=== PATIENT | female | born 1950 | race Caucasian/White ===

== ENCOUNTER 2017-03-20 10:02 | Inpatient (IN) | payer MEDICARE, MEDICAID ==
[~2017-03-20] VITALS: Ht 157.5 cm; Wt 60.8 kg
[~2017-03-20 10:02] MED LIST: CHOL10008 PO; LIDO113G3 TP; MTH10T PO; OMEP40CA36 PO; OXYC-474 PO; SIMV20TA4 PO; TERB15CR18 TP; VENL75TA3 PO
[2017-03-20 10:10] VITALS: BP 152/100; PULSE 102; RESP 16; O2SAT 98
--- NOTE | 2017-03-20 10:38 | ED.REPORT ---
HPI-Altered Mental Status Date of Service March 20, 2017 ED Provider: Frankie Santiago MD Patient is a 66 year old female with a history of hypertension, kidney stones and GERD who presents to the ED via EMS due to bizarre behavior. Per the EMS, they received a call about the patient reportedly answering with nonsense to questions and putting her clothes outside the door of her apartment. The patient reports she has generalized myalgias, auditory and tactile hallucinations. She denies any previous psychiatric problems. Patient reports that she took 10mg of Oxycodone today and has not been taking Methadone for the past month. History and complaints are limited due to patient's mental status. Nursing Notes Stated Complaint: BIZARRE BEHAVIOR Chief Complaint: Psychiatric Complaint Nursing Notes Reviewed: Yes (Tianji, Sk[employer] not reconciled) Allergies: Coded Allergies: TAPE (Verified Allergy, Severe, ASHRAF, 03/20/17) Sulfa (Sulfonamide Antibiotics) (Verified Allergy, Intermediate, Rash, 03/20) alprazolam (Verified Allergy, Unknown, 03/20/17) bupropion HCl (Verified Allergy, Unknown, 03/20/17) varenicline tartrate (Verified Adverse Reaction, Mild, Dry throat, 03/20/17) Scheduled Cholecalciferol (Vitamin D3) (Vitamin D3) 1,000 Unit Tab.chew 1,000 UNIT PO DAILY Methadone (Methadone) 10 Mg Tab 10 MG PO Q8H Omeprazole (Omeprazole) 40 Mg Capsule.dr 40 MG PO DAILY Simvastatin (Simvastatin) 20 Mg Tablet 20 MG PO HS Terbinafine HCl (Terbinafine) 15 Gm Cream..g. 1 APPLIC TP DAILY Venlafaxine (Venlafaxine) 75 Mg Tablet 75 MG PO BIDWM Scheduled PRN Oxycodone (Roxicodone) 5 Mg Tablet 5-15 MG PO Q3H PRN PRN For Pain Miscellaneous Medications Lidocaine (Topicaine) 113 Gm Gel..gram. 113 GM TP General Time Seen by MD: 10:37 Chief Complaint Other (bizarre behavior) Hx Obtained From: Patient, EMS Arrived By: Ambulance Sudden in Onset?: Yes Onset Occurred: Just prior to arrival Symptom Duration: Since onset Associated with: Reports: Hallucinations Recent Healthcare: No recent hospitalization, Recent doctor visit Similar Sx Previous: No Past Medical History Past Medical History Notes: Medication list and anesthesia February 2017: Methadone, oxycodone Omeprazole Simvastatin Terbinafine Lidocaine topical gel's Venlafaxine Calciferol Past Medical History Hypertension History of kidney stones History of GERD Past Surgical History Tonsillectomy Cholecystectomy Appendectomy History of ovarian cyst removal\\ C-spine fusion Smoking History Current Every Day Smoker Social History Alcohol Use: Denies alcohol use Drug Use: Denies drug use Other Social History: Local resident Ambulatory Status Independent Review of Systems Review of Systems Note: complains of generalized myalgias reports auditory and tactile hallucinations Unable to Obtain ROS Mental status Physical Exam Physical Exam Notes: no visible signs of trauma no focal deficits no overt findings of withdrawl no overt toxidromes Initial Vital Signs Vital Signs (First) Date Time Temp Pulse Resp B/P Pulse Ox O2 Delivery O2 Flow Rate FiO2 03/20/17 10:10 102 16 152/100 98 Room Air 03/20/17 12:03 36.8 Initial VS: Reviewed, Vital signs abnormal (pt refused temp initially) General/Constitutional: Awake, Alert, No acute distress restless, unable to sit still pacing around room Head / Eyes: Atraumatic, Normocephalic, PERRL, EOMI Neck: Atraumatic, Supple, Full range of motion Respiratory / Chest: Atraumatic, Breath sounds NL, Breath sounds = bilat, No respiratory distress Cardiovascular: Heart rate NL, Regular rhythm, Heart sounds NL Neurologic: Speech NL, No motor deficits, No sensory deficits, Gait NL Skin: Atraumatic, Color NL, No rash, Warm, Dry PSYCHIATRIC: floridly psychotic pleasant but responds with complete nonsense to questions when asked about suicidal ideations she reports that she has many thought of self harm but than went on to talk about love suggesting she was unaware of the actual question being asked. Interpretation & Diagnostics Lab Results Interpretation Result Diagram: 03/20/17 1125 03/20/17 1125 Test 03/20/17 11:25 03/20/17 13:49 White Blood Count 11.3th/mm3 (3.8-10.1) Red Blood Count 5.26mil/mm3 (3.90-5.20) Hemoglobin 15.1g/dL (12.0-15.6) Hematocrit 44.2% (35.0-46.0) Mean Corpuscular Volume 84.0fL (81-100) Mean Corpuscular Hemoglobin 28.7pg (27.0-35.0) Mean Corpuscular Hemoglobin Concent 34.2% (32.0-37.0) Red Cell Distribution Width 14.4% (12.3-15.4) Platelet Count 321bil/L (150-400) Neutrophils (%) (Auto) 71.0% (40-74) Lymphocytes (%) (Auto) 19.8% (14-46) Monocytes (%) (Auto) 8.3% (4-12) Eosinophils (%) (Auto) 0.4% (0-5) Basophils (%) (Auto) 0.3% (0-3) Erythrocyte Sedimentation Rate 2mm/hr (0-40) Prothrombin Time 10.2sec (8.1-12.5) Prothromb Time International Ratio 0.95ratio Activated Partial Thromboplast Time 25.2sec (22.8-33.0) Sodium Level 139mEq/L (134-144) Potassium Level 4.3mEq/L (3.5-5.2) Chloride Level 99mEq/L (97-108) Carbon Dioxide Level 25mmol/L (18-29) Blood Urea Nitrogen 8mg/dL (8-27) Creatinine 0.49mg/dL (0.57-1.00) Estimat Glomerular Filtration Rate 182mL/min (>59) Glucose Level 126mg/dL (60-99) Calcium Level 9.8mg/dL (8.5-10.1) Total Bilirubin 0.4mg/dL (0.0-1.2) Aspartate Amino Transf (AST/SGOT) 28U/L (0-50) Alanine Aminotransferase (ALT/SGPT) 21U/L (0-32) Alkaline Phosphatase 116U/L (25-165) Total Protein 6.6g/dL (6.4-8.4) Albumin 4.5g/dL (3.4-5.0) Salicylates Level < 3.0ug/mL (30-250) Acetaminophen Level < 15.0ug/mL Rx (10-25) Alcohols < 10mg/dL (0-10) CSF Appearance Clear (CLEAR) CSF Color Colorless (COLORLESS) CSF WBC 0/mm3 (0-5) CSF RBC 25/mm3 CSF Mononuclear WBCs % CSF Polynuclear WBCs % CSF Other Cells CSF Glucose 85mg/dL (45-90) CSF Total Protein 36mg/dL (15-45) Lab Results Interpretation: CBC trace leukocytosis CMP normal Tylenol, alcohol, salicylates negative CSF negative, notably acidosis, normal protein, normal glucose CSF pending for PCR study, but no markers to suggest herpes encephalitis CT Head Interpretation IMPRESSION: 1. No acute intracranial findings. 2. Tortuous, ectatic hyperdense left basilar artery and hyperdense appearing left vertebral artery. These findings are similar to the study from 2013. No abnormal posey-white differentiation to suggest posterior infarct. However, if there is high clinical suspicion for acute or early subacute infarct (which will not be demonstrated on CT), MRI of the brain may be helpful. Additionally, if further characterization of the vascular anatomy is warranted, CT of the brain may be helpful. Dictated by: Ariana Summers M.D. on 03/20/2017 at 11:25 Approved by: Ariana Summers M.D. on 03/20/2017 at 11:27 Procedures Lumbar Puncture Time: 12:56 Procedure Performed by: ED physician Consent / Setup / Site Prep: Consent from patient, Hand hygiene observed, Sterile drapes applied, Patient sitting up Skin Preparation Agent: Betadine, Other Local Anesthesia: Other (Bupivacaine with epi) Inserted Needle at: L4 L5 Post-Procedure / Complications: No complications, Tolerated procedure well, Patient stable Re-Eval/Medical Decision Med Decision/Clinical Course This is a 66-year-old female brought was profoundly altered. She is upright, energetic in fact pacing slightly, but critically confused. She babbles nonsense and can give no useful history. Her speech is not slurred, she is not ataxic, there is no visible signs of trauma. An Accu-Chek is normal. She has records indicating history of methadone and oxycodone although she claims she is not on methadone-urine tox is positive only for oxycodone and she demonstrates no signs of opiate toxicity clinically. She is also not appear in withdrawal evident. She has no overt meningismus, no rashes or exanthem, no overt toxidrome is evident. However she is disoriented, and entirely inappropriate. When I ask about suicidality-the patient is suicidal all the time and asked to explain her suicidality component-she responds with information about how is "full of love, full of unicorns" and does not have any bearing to any sort of suicidal ideation -this is just an idea of how psychotic her answers are. She denies auditory or visual hallucinations. Not overtly appear to be responding to internal stimuli. He is pleasant and not combative or agitated, but occasionally tries to leave and has to be redirected. He received some lorazepam which seemed to settle her down. An extensive workup is pursued to make find no records of her previous psychiatric illness, so a search for organic pathology is was undertaken. CT imaging was negative. Blood work revealed trace leukocytosis but no clear focus of infection. LP was performed with implied consent, clear CSF and no findings of meningitis. I said the patient undergo an MRI with and without contrast with further evaluation possibility of stroke or altered pathology-patient does not have any focal neurologic findings however, and does not come across as a classic expressive aphasia, and seems to have no understanding level alone just speech difficulties-and timeline is unknown to the patient's nonicteric candidate for TPA. Is being admitted to the medicine service for additional management. Source of Hx: Old records Re-Evaluation/Progress : Time of Eval: 12:30 Re-Evaluation/Progress Note: Discussed plan for a lumbar puncture and plan for admit. The patient understands and agrees to the procedure. All questions were addressed. Consultation : Referral / Consult Name: Sergio Waters DO Consulted With: Hospitalist Mold Forms Builder: Agrees with eval, Agrees with plan, Accepts admit Counseled Regarding: Diagnosis, Lab results, Need for admission Patient Discharge & Departure Impression: Primary Impression: Acute psychosis Disposition: ADMITTED TO HOSPITAL Discharge Condition All VS Reviewed: Yes Condition: Stable Referrals: Kenisha Rubio MD (PCP) Stacey Attestation Portions of this note were transcribed by Ruma Magana. I, Dr. Santiago personally performed the history, physical exam and medical decision-making; I reviewed and confirmed the accuracy of the information in the transcribed note. Signed by: Stacey Florence, 03/20/17 and [id number] copies to: Kenisha Rubio MD, Matthew F MD March 20, 2017 10:38 Neena Magana March 20, 2017 10:55
--- NOTE | 2017-03-20 11:29 | DRSVH ---
PROCEDURE: CT BRAIN WITHOUT CONTRAST ([id number]) INDICATIONS: ALTERED MENTAL STATUS TECHNIQUE: Noncontrast 4.5 mm thick angled axial sections acquired from the foramen magnum to the vertex, with c oronal reformats. COMPARISON: [facility], CT, BRAIN W/O CONTRAST, 02/09/2013, 17:19. FINDINGS: Image quality: Excellent. CSF spaces: Basal cisterns are patent. No extra-axial fluid collections. Ventricles are normal in size and shape. Brain: No midline shift. No intracranial masses or hemorrhage. Ochoa-white matter interface is norm al. Sellar the study dated 02/09/13, the left basilar artery has an ectatic, tortuous appearance. Thi s appears hyperdense relative to the other intracranial arteries. Skull and face: Calvarium and visualized facial bones are intact, without suspicious lesions. Sinuses: Visualized sinuses and mastoids are clear. IMPRESSION: 1. No acute intracranial findings. 2. Tortuous, ectatic hyperdense left basilar artery and hyperdense appearing left vertebral artery. T hese findings are similar to the study from 2012. No abnormal ochoa-white differentiation to suggest p osterior infarct. However, if there is high clinical suspicion for acute or early subacute infarct (w hich will not be demonstrated on CT), MRI of the brain may be helpful. Additionally, if further jason cterization of the vascular anatomy is warranted, CT of the brain may be helpful. Dictated by: Ariana Summers M.D. on 03/20/2017 at 11:25 Approved by: Ariana Summers M.D. on 03/20/2017 at 11:27
[2017-03-20 11:31] LABS: BASOPHILS % (AUTO) 0.3 % (0-3); EOSINOPHILS % (AUTO) 0.4 % (0-5); MONOCYTES % (AUTO) 8.3 % (4-12); Mean Corpuscular Hemoglobin 28.7 pg (27.0-35.0); Platelet Count 321 bil/L (150-400)
[2017-03-20 11:49] LABS: INR 0.95 ratio
[2017-03-20 12:03] VITALS: BP 116/81; PULSE 80; RESP 14; O2SAT 98
[2017-03-20] MEDS ORDERED: Bupivacaine 0.5%/EPI 50 mL Inj ONE ×2 (12:26→12:28)
[2017-03-20] MEDS ORDERED: Bupivacaine-MPF 0.5% 30 mL Inj ONE (12:30)
[2017-03-20] MEDS ORDERED: Bupivacaine 0.5% 50 mL Inj INFILTRATE ONE (12:35)
[2017-03-20] MEDS ORDERED: Bupivacaine 0.5%/EPI 50 mL Inj SUBQ ONE (12:35)
[2017-03-20 14:13] LABS: APPEARANCE,CSF CLEAR (CLEAR); COLOR,CSF COLORLESS (COLORLESS); WHITE BLOOD CELL,CSF 0 /mm3 (0-5)
[2017-03-20 14:20] LABS: APPEARANCE,CSF CLEAR (CLEAR); COLOR,CSF COLORLESS (COLORLESS); WHITE BLOOD CELL,CSF 0 /mm3 (0-5)
[2017-03-20] MEDS ORDERED: Polyethylene Glycol (PEG) 17 Gm Powder PO PRN (14:50)
[2017-03-20] MEDS ORDERED: Alum-Mag Hydrox-Simeth 30 mL Suspension PO PRN (14:50)
[2017-03-20] MEDS ORDERED: Ondansetron 2 mg/mL 2 mL Inj IVPUSH PRN (14:50)
--- NOTE | 2017-03-20 15:49 | PCM.HPMED ---
Subjective Date of Service March 20, 2017 Primary Provider: Admitting Physician: Sergio Waters DO Primary Care Physician: Kenisha Rubio MD Attending Physician: Sergio Waters DO Chief Complaint: Acute alteration in mental status History of Present Illness: Pt is a 66 yo F present via EMS following call from neighbors who became concerned when patient was noted talking nonsensically and piling cloths outside of her apartment. She presented to ER still essentially pleasant but acting completely bizzar. Responses though in Moroccan made little sense and were rarely appropriate with the question asked. Pt was completely disoriented, unable to provide almost any useful history. She could provide no contacts to confirm if these changes were acute or chronic, no collateral history could be obtained. During my own examination i found much of the same. Pt was pleasant, though occasionally agitated and responded inappropriately in tangential fashion to all questions. She did endorse hip pain which is chronic, but followed this by saying if " I was home it would be gone because she could pull the shade and watch TV". All of her attempted history proceeded in this direction. When asked of medical history she responded "lots, for my whole life , but i can't give you my life story for now. For breakfast i had a banana, that is all i have eaten for the past 4 days. " All attempts at obtaining history yeilded little information, but she at least repeatedly denies any pains or distress. Review of Systems: A 10 point review of systems was conducted and entirely negative excepting pertinent positives and negatives included above history of present illness, though oddity of responses put accuracy in question. Allergies Coded Allergies: TAPE (Verified Allergy, Severe, ASHRAF, 03/20/17) Sulfa (Sulfonamide Antibiotics) (Verified Allergy, Intermediate, Rash, 03/20) alprazolam (Verified Allergy, Unknown, 03/20/17) bupropion HCl (Verified Allergy, Unknown, 03/20/17) varenicline tartrate (Verified Adverse Reaction, Mild, Dry throat, 03/20/17) Home Medications Cholecalciferol (Vitamin D3) (Vitamin D3) 1,000 Unit Tab.chew 1,000 UNIT PO DAILY Methadone (Methadone) 10 Mg Tab 10 MG PO Q8H Omeprazole (Omeprazole) 40 Mg Capsule.dr 40 MG PO DAILY Simvastatin (Simvastatin) 20 Mg Tablet 20 MG PO HS Terbinafine HCl (Terbinafine) 15 Gm Cream..g. 1 APPLIC TP DAILY Venlafaxine (Venlafaxine) 75 Mg Tablet 75 MG PO BIDWM Scheduled PRN Oxycodone (Roxicodone) 5 Mg Tablet 5-15 MG PO Q3H PRN PRN For Pain Miscellaneous Medications Lidocaine (Topicaine) 113 Gm Gel..gram. 113 GM TP PMH Hypertension History of kidney stones History of GERD Surgical History Tonsillectomy Cholecystectomy Appendectomy History of ovarian cyst removal\\ C-spine fusion Family History unable to obtain, none reported. Social History Hx Alcohol Use: No Hx Substance Use: No Hx Tobacco Use: No Smoking Status: Current Every Day Smoker Exam Vital Signs Vital Sign - Last Date Time Temp Pulse Resp B/P Pulse Ox O2 Delivery O2 Flow Rate FiO2 03/20/17 12:03 36.8 80 14 116/81 98 Room Air Exam Complete physical could not be conducted due to patient refusal. She did not allow for physical contact/touch during examination. General: Alert, Other (Pt appeared intermittently anxious, but generally comfortable. IN no acute distress. Pt maintained good eye contact, speech pressured, flight of ideas observed, with tengential though process. Denies any thoughts of self harm, or harm to others. ) Lab and Diagnostics Result Diagram: 03/20/17 1125 03/20/17 1125 Assessment & Plan Patient is a 66-year-old female with a very peculiar presentation of an acute alteration in mental status and apparent new onset psychosis admitted for further evaluation with etiology of mental status change as of yet unclear 1. Acute psychosis - Evaluation thus far has not yielded diagnosis or suggested possible cause of his condition - Chronicity of condition as well remains in question however patient was seen in 2012 with a cholecystitis and at that time now is on is a behavior abnormal mentation was noted and it is assumed that this is of a more acute onset - Emergency room evaluation including cerebral spinal fluid did not demonstrate any evidence of infection or other possible abnormalities which could explain patient's current condition - Patient is on chronic narcotic therapy, and now she does confirm taking oxycodone she denies currently being on methadone which he has also been prescribed near past. - Plan for continued close observation of patient, MRI brain with and without contrast is pending for further evaluation of possible central process which appears most likely to account for patient's acute mentation changes. - May consider neurologic consult should patient remain altered without any other identifiable cause. - We will hold patient's psychiatric medications at this time including venlafaxine at this time. 2. Hypertension - Initially elevated on presentation to emergency room her blood pressure has since normalized - We will consider no acute interventions at this time, but may reconsider based on blood pressure trends during inpatient stay. 3. Chronic pain: - Though i am reluctant to provide any medications which may alter patient, she began complaining of chronic pain soon after my admission, and her taking of Oxycodone 10mg QID was confirmed. - I elected to start with lower dose, 5/325, which may be increased if not effective. - Holding methadone at this time. Pain Evaluation: Adequate Pain Control GI Prophylaxis: Not indicated VTE Mechanical Devices: Intermittant Pneumatic CD Resuscitation Status: CPR: Attempt Resuscitation Sergio Waters DO March 20, 2017 15:49
[2017-03-20 16:03] VITALS: BP 114/80; PULSE 84; RESP 20; O2SAT 97
--- NOTE | 2017-03-20 16:10 | NUR ---
Admission Patient arrived on unit via gurney from [facility] ER. Patient reported she was her because of "a family feud that has been going on since she was born". Patient reporting "all the people are being cremated-only the bad people". "My brother is a pedophile and should be in skilled nursing". "Some one is coming to bring me stuff". "I can walk there-you know how you need to urinate then you can't". Sentence are run on and the over all content can be garbled. Patient has a difficulty tracking/completing thoughts. Unable to figure out how to use her phone to call her brother, but did call 911.
[2017-03-20 16:12] LABS: APPEARANCE,URINE CLEAR (CLEAR,HAZY); COLOR,URINE STRAW (YELLOW); OCCULT BLOOD,URINE TRACE (NEGATIVE); PH,URINE 5.5 (5.0-8.0); UROBILINOGEN,URINE NORMAL (NORMAL)
--- NOTE | 2017-03-20 16:14 | DRSVH ---
PROCEDURE: MRI BRAIN WITH AND WITHOUT CONTRAST ([id number]) INDICATIONS: New onset psychosis TECHNIQUE: Noncontrast axial T1 spin echo, axial T2 fast spin echo, sagittal and axial FLAIR, coronal T2 fast sp in echo, axial gradient echo, axial diffusion and ADC through the brain. After the administration of contrast, axial and coronal 3D VIBE or T1 spin echo with fat saturation through the brain. COMPARISON: [facility], CT, BRAIN W/O CONTRAST, 02/09/2013, 17:19. [facility], CT, CT BRAIN WO CON, 03/20/2017, 11:12. FINDINGS: Image quality: Diagnostic. Moderate motion artifact is present on several imaging sequences. The Brain: There is no acute intra-axial or extra-axial hemorrhage. No extra-axial fluid collection is i dentified. There is no midline shift or mass effect. Scattered foci of increased flair signal are noted within the deep white matter of the supratentorial brain. No parenchymal masses or abnormal enhancement is appreciated. There is no parenchymal edema . No restricted diffusion is present. The midline intracranial structures are within normal limits. The major expected intracranial flow voids are visualized. The left vertebral artery is prominent in size then noted to be tortuous, terminating as the basilar artery with mild mass effect on the lef t aspect of the brainstem, which partially extends towards the region of the cerebellum. This is unc hanged since 2012 and of doubtful significance. No abnormal enhancement is present on the postcontras t images. No enhancing lesions are identified. The ventricles and cortical sulci are mildly prominent. Bones: The imaged osseous structures are grossly intact. No suspicious osseous lesions are identifie d. The included paranasal sinuses and mastoid air cells are clear. Extracranial soft tissues: The imaged overlying soft tissues of the face and head are grossly unremar kable. IMPRESSION: 1. Excessive motion artifact on this examination limits evaluation for subtle brain lesions. 2. No acute intracranial hemorrhage or ischemia. 3. Chronic small vessel ischemic changes and mild parenchymal volume loss. 4. Dolichoectasia of the basilar artery. Dictated by: Jordan Archer M.D. on 03/20/2017 at 15:09 Approved by: Jordan Archer M.D. on 03/20/2017 at 15:13
[2017-03-20 16:18] VITALS: PULSE 83
[2017-03-20] MEDS ORDERED: OMEP20CA11 PO (16:37)
[2017-03-20] MEDS ORDERED: VENL-57 PO (16:37)
[2017-03-20] MEDS ORDERED: OXYC10TA8 PO (16:37)
[2017-03-20] MEDS ORDERED: PREG50CA PO (16:37)
[2017-03-20] MEDS ORDERED: ROB500 PO (16:37)
[2017-03-20] MEDS ORDERED: SIMV40TA5 PO (16:37)
[2017-03-20] MEDS ORDERED: METH5TAB3 PO (16:37)
[2017-03-20] MEDS: oxyCODONE-Acetamin 5-325 mg Tablet PO PRN (18:57)
[2017-03-20] MEDS: LORazepam 1 mg Tablet PO PRN (18:58)
--- NOTE | 2017-03-21 05:06 | NUR ---
Activity Pt was quite active at beginning of shift. First 3 hours Pt ambulated in and out of room, up and down halls. Pt even set off her [employer] tag monitor alarm [id number] to leave. Pt easily returned to room. Nothing Pt says is relevant to current surroundings and situation. Pt eventually went to sleep and has been asleep ever since.
[2017-03-21] MEDS: oxyCODONE-Acetamin 5-325 mg Tablet PO PRN ×4 (05:59→20:00)
[2017-03-21 06:04] VITALS: BP 127/89; PULSE 77; RESP 20; O2SAT 96
[2017-03-21] MEDS: Pantoprazole 40 mg ER24 Tablet PO SCH (09:21)
--- NOTE | 2017-03-21 13:52 | NUR ---
CHIP - Attempted Initial Assessment Pt is a 66 y/o female admitted 03/20/17 for altered mental status per H&P. per interdisciplinary rounds neurology consult has been ordered. CHIP met with pt in attempt to complete initial assessment. Pt presented as pleasant and confused, stated she "hurt all over" but could not remember for how long. Asked if she is going to in the hospital today. Pt did know she was at [facility] and was brought here by EMS, and stated she lives alone. Pt confirmed that brother Geovani Bradley is a good person to contact. SW called brother at [phone] and left message requesting return call. SW will continue to follow for full assessment and needs. DAVID Ladd
--- NOTE | 2017-03-21 14:11 | NUR ---
Mentation Patient restless, in and out of room and pacing fam. Attempted to pull off [employer] monitor. Speech is erratic and nonsensical. Alert to self and date but not to place/situation. Confused and not able to orient her to situation. Patient reoriented frequently for safety.
--- NOTE | 2017-03-21 15:22 | PCM.PNMED ---
Subjective Date of Service March 21, 2017 Subjective Patient remains pleasant, but profoundly altered and those are. Walks around unit frequently disoriented, making statements which appear to have little relevance to the previous conversation or related to question she has been asked. She does not appear to any physical pain however she notes it does bother her but says pain medication has been dressing it well. No other acute complaints at this time patient in fact appears relatively content in spite of the fact that she is so profoundly out of touch with reality. Exam Vital Signs Vital Sign - Last Date Time Temp Pulse Resp B/P Pulse Ox O2 Delivery O2 Flow Rate FiO2 03/21/17 06:04 36.6 77 20 127/89 96 Room Air Intake and Output 03/20/17 03/20/17 03/21/17 Cumulative From/Thru 15:00 23:00 07:00 03/20/17 10:10 - 03/21/17 06:46 Intake Total 236 ml 400 ml 636 ml Output Total 150 ml 150 ml Balance 86 ml 400 ml 486 ml Intake Oral 236 ml 400 ml 636 ml Output Urine Total 150 ml 150 ml # Voids 3 3 General: Alert, Cooperative, No Acute Distress, Other (she is pleasant but continues to make bizarre statements, is not answer questions directly, has seemingly no insight into her condition. Difficult to assess but does not appear she is aware she is even in the hospital, or factors related to her admission, but nonetheless she is easily redirectable and nightly not combative with staff. ) Eyes: PERRLA, EOMI Chest & Lungs: Chest Wall Normal Cardiovascular: Exam Unremarkable Extremities: No cyanosis/clubbing/edma bilat Neurological: Grossly Neurologically Intact, Cranial Nerves 2-12 Intact, Normal Speech, Normal Gait IVs and Medications Medications Reviewed: Medications were reviewed in detail Lab and Diagnostics Result Diagram: 03/20/17 1125 03/20/17 1125 Assessment & Plan Patient is a 66-year-old female with a very peculiar presentation of an acute alteration in mental status and apparent new onset psychosis admitted for further evaluation with etiology of mental status change as of yet unclear 1. Acute psychosis - Evaluation thus far has not yielded diagnosis or suggested possible cause of his condition - Chronicity of condition as well remains in question however patient was seen in 2012 with a cholecystitis and at that time now is on is a behavior abnormal mentation was noted and it is assumed that this is of a more acute onset - Emergency room evaluation including cerebral spinal fluid did not demonstrate any evidence of infection or other possible abnormalities which could explain patient's current condition - Patient is on chronic narcotic therapy, and now she does confirm taking oxycodone she denies currently being on methadone which he has also been prescribed near past. - Plan for continued close observation of patient, MRI brain with and without contrast did not seem to demonstrate any changes consistent with patient's drastic behavioral disturbance. - We will hold patient's psychiatric medications at this time including venlafaxine at this time. - We have no neurology available to us at this time for consultation, however will try to reach neurology in the morning for further evaluation of possible underlying medical condition which can explain patient's profound alteration which appears to have happened in the last couple of weeks throughout most months. - - Psychiatry has been consulted for further consideration of her apparent psychotic disorder and optimal management. In addition should no medical/biological cause can be found to explain patient's condition there may be an indication for transfer to inpatient psychiatric unit as the most appropriate disposition. 2. Hypertension - Initially elevated on presentation to emergency room her blood pressure has since normalized - We will consider no acute interventions at this time, but may reconsider based on blood pressure trends during inpatient stay. 3. Chronic pain: - Though i am reluctant to provide any medications which may alter patient, she began complaining of chronic pain soon after my admission, and her taking of Oxycodone 10mg QID was confirmed. - I elected to start with lower dose, 5/325, which has been effective thus far. - Holding methadone at this time. Pain Evaluation: Adequate Pain Control GI Prophylaxis: Not indicated VTE Mechanical Devices: Intermittant Pneumatic CD Resuscitation Status: CPR: Attempt Resuscitation Time spent 25 minutes Sergio Waters DO March 21, 2017 15:22
[2017-03-21] MEDS: LORazepam 1 mg Tablet PO PRN (16:01)
[2017-03-21 16:21] VITALS: BP 132/89; PULSE 95; RESP 22; O2SAT 92
[2017-03-21 21:07] VITALS: BP 132/88; PULSE 87; RESP 18; O2SAT 98
[2017-03-22] MEDS: oxyCODONE-Acetamin 5-325 mg Tablet PO PRN ×6 (00:03→22:09)
[2017-03-22] MEDS: LORazepam 1 mg Tablet PO PRN ×4 (00:03→23:56)
[2017-03-22 04:10] VITALS: BP 127/88; PULSE 80; RESP 18; O2SAT 97
[2017-03-22] MEDS: Pantoprazole 40 mg ER24 Tablet PO SCH (06:34)
--- NOTE | 2017-03-22 06:44 | NUR ---
Odd Behavior Pt has been compliant and friendly with staff all night. Pt continues to make out of pace statements at times, and is also placing things in odd places. Pts trinidad aubrie was found hanging over sink, has been writing on wipe off board, and placed the trash can up on the window.
--- NOTE | 2017-03-22 11:04 | NUR ---
Social Work-initial assessment: Data:See initial assessment. Pt is a 66 y/o female who was admitted on 03/20/17 for altered mental status per H&P. Pt's insurance is [facility] and [facility] Suppl and PCP is Kenisha Rubio MD. EMR Reviewed. Pt's readmission score is 3-high risk. Pt is currently presenting with acute psychosis. SW spoke to pt's NOK brother Geovani Bradley [phone] to discuss discharge planning, SW role explained. Brother states pt resides at home alone in a single level home where pt remains independent with basic ADLs. Pt uses no DME and drives POV. Pt has no HH or SNF history. To his knowledge the pt has not completed DPOA/ advanced directive and pt is not appropriate to do so at this time. Pt has no intermediate designer care or VA benefits. UR Nurse to request psych evaluation with possible transfer to inpatient psych. Neurology is following. Pt's mode of transport at discharge is stil TBD. Plan evolving. SW provided phone number and plan on white board in room. SW will continue to follow. Assessment:Pt who resides at home alone and is independent at baseline. Plan: Psych evaluation has been requested with possible transfer to inpatient psych. Discharge plan is evolving. SW will continue to follow. DAVID Ladd
--- NOTE | 2017-03-22 12:02 | PCM.PNMED ---
Subjective Date of Service March 22, 2017 Subjective Patient was seen and examined at bedside today. Patient still has altered mental status and is able to answer some questions pertaining to her however some of her answers seem to be off topic however she is able to be redirected. Patient complains of generalized pain as well as pain. Overnight events: None Exam Vital Signs Vital Sign - Last Date Time Temp Pulse Resp B/P Pulse Ox O2 Delivery O2 Flow Rate FiO2 03/22/17 04:10 36.9 80 18 127/88 97 Room Air Intake and Output 03/21/17 03/21/17 03/22/17 Cumulative From/Thru 15:00 23:00 07:00 03/20/17 10:10 - 03/22/17 05:24 Intake Total 876 ml 300 ml 1812 ml Output Total 150 ml Balance 876 ml 300 ml 1662 ml Intake Oral 876 ml 300 ml 1812 ml Output Urine Total 150 ml # Voids 3 2 8 # Bowel Movements 0 0 Exam Physical Exam: GEN: Patient was awake, alert, responding to questions however some of her thoughts are tangential HEENT: Pupils equal round and reactive to light, extraocular eye muscles intact , Neck soft supple, trachea midline, nomocephalic/atraumatic CV: +S1/S2, regular rate and rhythm, no murmurs auscultated Respiratory: CTAB, no wheezes, rales, rhonchi GI: +bowel sounds x4, soft, compressible, nontender to palpation EXT: no clubbing, cyanosis, edema Neuro: Cranial nerves II-XII grossly intact Psych: Patient's thoughts were tangential, she had some pressured speech, patient seemed restless IVs and Medications Medications Reviewed: Medications were reviewed in detail Lab and Diagnostics Result Diagram: 03/20/17 1125 03/20/17 1125 Assessment & Plan Patient is a 66-year-old female with a very peculiar presentation of an acute alteration in mental status and apparent new onset psychosis admitted for further evaluation with etiology of mental status change as of yet unclear Acute psychosis - Evaluation thus far has not yielded diagnosis or suggested possible cause of his condition - Chronicity of condition as well remains in question however patient was seen in 2012 with a cholecystitis and at that time now is on is a behavior abnormal mentation was noted and it is assumed that this is of a more acute onset - Emergency room evaluation including cerebral spinal fluid did not demonstrate any evidence of infection or other possible abnormalities which could explain patient's current condition - Patient is on chronic narcotic therapy, and now she does confirm taking oxycodone she denies currently being on methadone which he has also been prescribed near past. - Plan for continued close observation of patient, MRI brain with and without contrast did not seem to demonstrate any changes consistent with patient's drastic behavioral disturbance. - We will hold patient's psychiatric medications at this time including venlafaxine at this time. - We have no neurology available to us at this time for consultation, however will try to reach neurology in the morning for further evaluation of possible underlying medical condition which can explain patient's profound alteration which appears to have happened in the last couple of weeks throughout most months. - - Psychiatry has been consulted for further consideration of her apparent psychotic disorder and optimal management. In addition should no medical/biological cause can be found to explain patient's condition there may be an indication for transfer to inpatient psychiatric unit as the most appropriate disposition. - EEG pending -Follow-up psychiatry consult Urethritis possibly secondary to yeast infection -Diflucan one-time dose -Follow up with patient the morning Hypertension - Currently stable has returned to baseline without any medical intervention -We will continue to monitor Chronic pain: - It was confirmed that the patient is taking oxycodone 10 mg 4 times a day -Patient was started on Percocet 5/325mg and is currently effective - continue to hold methadone at this time - we will continue to monitor Disposition: The patient currently still has acute psychosis. At this time the workup has been negative for any infectious causes. Patient does complain of urethritis and will treat the patient with a one-time dose of Diflucan UA was negative for any type of UTI. Neurology (Dr. perry) was consulted in the case was discussed with him and he recommends getting an EEG for complete workup. If this comes back negative the patient will need to be transferred to the psych unit for further management of her psychosis. GI Prophylaxis: Not indicated VTE Mechanical Devices: Intermittant Pneumatic CD Resuscitation Status: CPR: Attempt Resuscitation BillingsleyGissel Mera DO March 22, 2017 12:02
[2017-03-22 12:25] VITALS: BP 107/74; PULSE 83; RESP 20; O2SAT 97
--- NOTE | 2017-03-22 15:33 | NUR ---
Pt not appropriate to sign ULISES. SW contacted pt's LANI Olivo via phone (he resides [place] of [place]) and he verbally signed. DAVID Ladd
--- NOTE | 2017-03-22 19:20 | CONS ---
[address] [address] CONSULTATION REPORT PATIENT: ERIKA PONCE : 1950 MR#: [id number] ADMIT: 03/20/2017 JOB ID: [id number] DATE OF ADMISSION: 03/20/2017 DATE OF SERVICE: 03/22/2017 IDENTIFICATION: The patient is a 66-year-old, single, white female, currently living independently. Her brother, Geovani Bradley, lives out of town but has been a good source of information [phone]. REASON FOR ADMISSION: Client to the emergency department via emergency medical service due to acting bizarre, talking nonsensically and appearing highly disoriented. HISTORY OF PRESENT ILLNESS: I was asked to consult on this patient for mental evaluation and treatment of mental status changes. I met with her for a 60-minute evaluation and reviewed course and records kept by [facility]. I also spoke to Geovani Bradley for approximately 20 minutes getting past history. Client's main issue is altered mental status. Co- occurring issues are chronic pain with use of methadone and oxycodone. The condition is acute and has been developing over the past five months. Her brother noted a progressive decrease in memory and disinhibition in her behavior since Gilberto. She has become increasingly irritable and is easily confused. Over the past six months, she has had inappropriate responses to relatively normal social interactions. At the time of admission, she was severely disorganized, agitated, tangential and talking nonsensically. Today during my session, her thought process had apparently reconstituted and she was able to speak in a genuinely clear and normal manner. She consistently denied symptoms of depression, monique or psychosis. She denied difficulty with constitution, other than complaining of back pain and hip pain. Currently, at the time of my evaluation, she was showing no signs of emotional liability or difficulty with impulse control. Her reality testing was intact and she was alert and oriented to person, place, and date. However, she showed impairment in cognition, judgment and insight. MEDICATIONS: 1. Venlafaxine reportedly 37.5 mg per day. 2. Oxycodone for pain. 3. Methadone up to 40 mg per day for pain. ALLERGIES: CHANTIX. PAST MEDICAL ILLNESSES: Hypertension, history of kidney stones, history of gastroesophageal reflux disease. FAMILY MEDICAL HISTORY: Noncontributory. PAST PSYCHIATRIC HISTORY: Client denies. PSYCHOSOCIAL HISTORY: Client reports being born and raised in the [facility]. She attended [employer]. 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 DRUG AND ALCOHOL: Client denied. States she smokes half a pack per day. SUICIDAL IDEATION/ATTEMPTS: None. RELATIONSHIP HISTORY: for two years at 33. No children. ROMAN CATHOLIC: None. LEGAL HISTORY: Client denies. PHYSICAL EXAMINATION: Physical exam and vital signs reviewed and essentially normal. LABORATORY AND IMAGING: CT, MRI, CBC, ESR, UDS and UA also all relatively normal. The only abnormality was a WBC of 11. MENTAL STATUS EXAMINATION: Client neatly and stylishly dressed. Good eye contact. Her behavior was somewhat withdrawn and lethargic. Attitude was aloof and detached. Speech tended to be monotone, but she was speaking in full comprehensible sentences. Mood was sad. Affect congruent. Normal intensity, full range. Thought process: Client had a difficult time relating a coherent history. She appeared to be rationalizing to normalize recent bizarre behavior. Her thought process was somewhat concrete, but was otherwise logical. She did not appear to be responding to internal stimuli. No neurovegetative signs of depression. No signs of psychosis. Thought content: Client talked about her love of animals and how she has been angry lately about the different abuses that are happening to animals that she is aware of in events. She denied suicidal ideation or auditory hallucinations. She is alert and oriented to person, place, and date. Immediate, short, and long-term memory were impaired. Concentration and attention were impaired. Client had approximately 20/30 on a mini-mental status exam, 24 being the bottom line of normal. Insight and judgment impaired. Impulse control highly contained, but per history has a difficult time handling impulses of frustration and anger. Reality testing was intact. Competence to handle current stressors is currently overwhelmed. IMPRESSION: The patient is a 66-year-old, white female, currently living independently. She was brought to the emergency department after being found talking nonsensically, disoriented and agitated. She does take both methadone and oxycodone and reported increasing doses of methadone over the past several months. It is most likely that the recent confusion and behavior changes are likely due to the combination of being overmedicated with the combination of methadone and Percocet. Here in the hospital, she also already has shown approximately 60% improvement since being admitted approximately 48 hours ago. She remains quite impaired. She is disoriented in her thought, not necessarily disorganized. Schizophrenia would be a presentation for more thought disorganization. Her disorientation tends to lead me to believe she is in a delirium or early stages of a neurocognitive disorder. DIAGNOSIS: [place] I1. Preliminary substance-induced thought disorder, methadone and Percocet. Rule out major depressive disorder. 2. Rule out neurocognitive disorder, unspecified. [place] IIDeferred. [place] IIINone. [place] IVUnknown. [place] VCurrent GAF equal to 35. RECOMMENDATIONS: Recommend client be given regularly scheduled narcotics rather than p.r.n. Would recommend contacting her [facility] to get an idea of the quantities of medications that she has had. Would recommend refraining from starting psychiatric medications at this time and give the client several days to clear to see what we are dealing with. In the meantime, would orient client frequently to year and date. Client would benefit from reading a newspaper regularly. Would recommend occupational therapy evaluation to see if client is truly going to be able to do independent living after she clears. Thank you for an interesting consultation. I will follow along with you.
--- NOTE | 2017-03-22 19:53 | NUR ---
Mentation Patient alert to self and place, and speaks in complete sentences. But when sentences are put together, they do not make sense. "I think the arm band is on my ankle (hugs tag). It is dribbling down my leg". Addendum: 03/22/17 at 2001 by TYLOR GARCIA RN To be noted: patient placed her gargage can in her window. Removed the nicotine patch packaging and medication packaging from the garbage and placed them on a paper plate on the counter. She instructed the nurse "not to throw them away, they were for a "special purpose". but was unable to say what the purpose was.
[2017-03-22 21:55] VITALS: BP 121/81; PULSE 80; RESP 18; O2SAT 95
--- NOTE | 2017-03-22 23:42 | PROCED ---
[address] [address] EEG PATIENT: ERIKA PONCE : 1950 MR#: [id number] ADMIT: 03/20/2017 JOB ID: [id number] DATE OF SERVICE: 03/22/2017 REQUESTING PHYSICIAN: HISTORY: The patient is a 66-year-old woman with altered mental status. TECHNICAL DESCRIPTION: This digital EEG was recorded using 25 scalp and ear, and 2 EKG electrodes. It was reviewed in bipolar and referential montages following reformatting of the 10-20 International Electrode Placement System. During the recording, the patient was noted to be awake, drowsy, and asleep. The background was composed of an 8.5 hertz, 20-50 microvolt, symmetrical and reactive posterior dominant rhythm that attenuated with eye opening. The rest of the background was composed of low voltage faster frequencies. There were no focal, lateralized, or epileptiform discharges noted. There were no seizures seen. Sleep was characterized by the attenuation of the alpha rhythm, the appearance of symmetrical vertex waves, heralding stage 1 of sleep. This was followed by the development of symmetrical sleep spindles and K complexes, heralding stage 2 of sleep. Hyperventilation was not performed as the patient was uncooperative with this test. Photic stimulation from 1-30 hertz did not elicit any photic driving response. The EKG rhythm strip revealed a heart rate of 60 to 80 beats per minute with no apparent arrhythmias. IMPRESSION: This electroencephalogram performed in the awake, drowsy, and asleep states is within normal limits. Clinical correlation is advised.
[2017-03-22 23:53] VITALS: BP 124/76; PULSE 76; RESP 16; O2SAT 95
[2017-03-23 04:53] VITALS: BP 120/79; PULSE 82; RESP 16; O2SAT 97
--- NOTE | 2017-03-23 05:07 | NUR ---
Mentation Improving Pt appears mentally more clear, alert and oriented to place,[place] President and year, month,able to rate pain level, ask or answer questions properly, she requested nicotine vapor, asked where RN came from and and able to give a rational guess. Pt remains calm most of times, pleasant and cooperative. Sleeping comfortably after Lorazepam given at night.
[2017-03-23] MEDS: Pantoprazole 40 mg ER24 Tablet PO SCH (06:06)
[2017-03-23] MEDS: oxyCODONE-Acetamin 5-325 mg Tablet PO PRN ×4 (06:06→21:28)
[2017-03-23 06:27] LABS: Mean Corpuscular Hemoglobin 28.4 pg (27.0-35.0); Mean Corpuscular Volume 85.3 fL (81-100)
[2017-03-23] MEDS: LORazepam 1 mg Tablet PO PRN (09:57)
[2017-03-23 12:12] VITALS: BP 133/74; PULSE 74; RESP 19; O2SAT 95
--- NOTE | 2017-03-23 18:30 | NUR ---
Mentation/pain Patient mentation appeared appropriate this afternoon, statements reality based and make sense. Patient back pain appears more tolerable with medication this shift. Patient reporting sonia pain "worse than my back pain". Calmoseptine given.
--- NOTE | 2017-03-23 19:45 | CONS ---
[address] [address] CONSULTATION REPORT PATIENT: ERIKA PONCE : 1950 MR#: [id number] ADMIT: 03/20/2017 JOB ID: [id number] DATE OF SERVICE: 03/23/2017 REQUESTING PROVIDER: Gissel Billingsley MD CHIEF COMPLAINT: Altered mental status. HISTORY OF PRESENTING ILLNESS: The patient is a pleasant, 66-year-old woman who presented with a change in mental status to the emergency department. She was noted to be talking nonsensically and piling close outside of her apartment. She reports no history of any psychiatric disorders in the past. She denied any new neurologic symptoms. She does report a history of chronic lower back pain. She attributes this to an initial injury where she injured her tailbone followed by the development of chronic lower back pain. For this, she reports that she takes oxycodone and methadone. She reports that the doses of these medications have not changed. Sensation is remarkable for paranoid thoughts. An extensive evaluation has been performed so far including a lumbar puncture which was unremarkable, a magnetic resonance imaging study of her brain which was not remarkable for any acute abnormalities. There was excessive motion artifact, no acute intracranial hemorrhage or ischemia, chronic small vessel ischemic changes and mild parenchymal volume loss, dolichoectasia of the basilar artery. FAMILY HISTORY: She does have a family history of Alzheimer dementia in her mother. She is concerned about this to a certain extent. She also underwent an electroencephalogram which was unremarkable. PHYSICAL EXAMINATION: Temperature 36.6, pulse of 74, respiratory rate of 19, blood pressure 133/74, pulse oximetry 95% on room air General: She is a well-developed, well-nourished woman, in no acute distress. Head: Normocephalic, atraumatic. Neck is supple. No carotid bruits were auscultated. Chest: Clear to auscultation. Heart: Regular rate and rhythm. Abdomen: Soft, nondistended, nontender. Extremities: No cyanosis, clubbing, or edema. NEUROLOGIC EXAMINATION: She is awake, alert, oriented x3. Speech is clear and fluent with no aphasia. She did appear mildly paranoid. When I came into the room and introduced myself, she asked me to provide identification, so I have provided her with a copy of my medical license. Cranial nerves: Pupils equal, round, reactive to light. Extraocular movements were smooth and conjugate with no evidence of nystagmus. Face appeared symmetrical. Facial sensation was intact to light touch and temperature. Auditory sensation was intact to finger rub. Palatal elevation was symmetrical. Tongue was midline. Sternocleidomastoid and trapezii are 5/5 bilaterally. Motor normal tone and bulk. Muscle strength 5/5 bilaterally. Sensation intact to light touch and temperature throughout. Deep tendon reflexes 2+ and symmetrical. Plantars were flexor bilaterally. Coordination: Isnioe-ay-sfwe was intact without evidence of dysmetria. Gait was normal, narrow-based. IMPRESSION: Based on her clinical history, my suspicion is that this is secondary to a psychiatric etiology. In this case, I do suspect an acute stress response or new onset of a mood disorder with possible schizotypal features. REVIEW OF SYSTEMS: A complete review of systems was performed and was remarkable for above-noted. ALLERGIES: 1. TAPE. 2. SULFA. 3. ALPRAZOLAM. 4. BUPROPION. 5. VARENICLINE TARTRATE. HOME MEDICATIONS: 1. Vitamin D. 2. Methadone. 3. Omeprazole 4. Simvastatin. 5. Terbinafine 6. Venlafaxine. 7. P.r.n. oxycodone and lidocaine. PAST MEDICAL HISTORY: Hypertension, kidney stones, gastroesophageal reflux disease. PAST SURGICAL HISTORY: Status post tonsillectomy, status post cholecystectomy, status post appendectomy, status post a history of an ovarian cyst removal, status post cervical spinal fusion. SOCIAL HISTORY: No tobacco, alcohol, or drugs. She reports that she lives alone, however, does report that she has a strong social network. IMPRESSION: Although certainly Alzheimer's dementia does remain in the differential, in my opinion her symptoms are more suggestive of a psychiatric illness rather than a neurologic disorder. I would recommend that she obtain neuropsychological testing as an outpatient at some point. Thank you, again, Dr. Billingsley, for allowing me to participate in the care of your patient. Please feel free to contact me with any questions or concerns. BREANA
--- NOTE | 2017-03-23 20:20 | PCM.PNMED ---
Subjective Date of Service March 23, 2017 Subjective Patient was seen and examined at bedside today. Patient denies any chest pain, shortness of breath, nausea, vomiting, diarrhea. Patient still complains of a vague vaginal burning that has been present for the last 3 years. Patient does seem to be a little more paranoid and she has accused her nurse of trying to "kill her" by giving her glass to take instead of her medications and also accusing the nurse of being the ring leader of the drug operation locally. Overnight events: None the patient remains altered in mental status Exam Vital Signs Vital Sign - Last Date Time Temp Pulse Resp B/P Pulse Ox O2 Delivery O2 Flow Rate FiO2 03/23/17 12:12 36.6 74 19 133/74 95 Room Air Intake and Output 03/22/17 03/22/17 03/23/17 Cumulative From/Thru 15:00 23:00 07:00 03/20/17 10:10 - 03/23/17 06:03 Intake Total 1475 ml 200 ml 3487 ml Output Total 1325 ml 1475 ml Balance 150 ml 200 ml 2012 ml Intake Oral 1475 ml 200 ml 3487 ml Output Urine Total 1325 ml 1475 ml # Voids 3 11 # Bowel Movements 3 0 3 Exam Physical Exam: GEN: Patient was awake, alert, responding appropriately to questions HEENT: Pupils equal round and reactive to light, extraocular eye muscles intact , Neck soft supple, trachea midline, nomocephalic/atraumatic CV: +S1/S2, regular rate and rhythm, no murmurs auscultated Respiratory: CTAB, no wheezes, rales, rhonchi GI: +bowel sounds x4, soft, compressible, nontender to palpation EXT: no clubbing, cyanosis, edema Neuro: Cranial nerves II-XII grossly intact Psych: mood and affect were appropriate IVs and Medications Medications Reviewed: Medications were reviewed in detail Lab and Diagnostics Result Diagram: 03/23/1750 03/23/1750 Assessment & Plan Patient is a 66-year-old female with a very peculiar presentation of an acute alteration in mental status and apparent new onset psychosis admitted for further evaluation with etiology of mental status change as of yet unclear Acute psychosis most likely secondary to excessive usage of opioids - Evaluation thus far has not yielded diagnosis or suggested possible cause of his condition - Chronicity of condition as well remains in question however patient was seen in 2012 with a cholecystitis and at that time now is on is a behavior abnormal mentation was noted and it is assumed that this is of a more acute onset - Emergency room evaluation including cerebral spinal fluid did not demonstrate any evidence of infection or other possible abnormalities which could explain patient's current condition - Patient is on chronic narcotic therapy, and now she does confirm taking oxycodone she denies currently being on methadone which he has also been prescribed near past. - Plan for continued close observation of patient, MRI brain with and without contrast did not seem to demonstrate any changes consistent with patient's drastic behavioral disturbance. - We will hold patient's psychiatric medications at this time including venlafaxine at this time. - Neurology following - Psychiatry currently following - EEG normal Urethritis possibly secondary to yeast infection -Diflucan one-time dose -Follow up with patient the morning Hypertension - Currently stable has returned to baseline without any medical intervention - We will continue to monitor Chronic pain: - It was confirmed that the patient is taking oxycodone 10 mg 4 times a day - Patient was started on Percocet 5/325mg and is currently effective - continue to hold methadone at this time do not restart patient's home dose of Percocet 10/325 - we will continue to monitor Disposition: The patient currently still has acute psychosis and now with some paranoia. After discussion with psychiatry (Dr. Raza) he feels that the patient's acute psychosis is secondary to overdose of narcotics. He feels it in the next 72 hours if patient should revert back to her baseline status. However if the patient does not revert back to her baseline status and she would most likely be a candidate for an Alzheimer dementia unit. The case was also discussed with neurology () feels that the patient is neurologically competent and that her psychosis is due to something more psychiatric. GI Prophylaxis: Not indicated VTE Mechanical Devices: Intermittant Pneumatic CD Resuscitation Status: CPR: Attempt Resuscitation Gissel Billingsley DO March 23, 2017 20:20
[2017-03-23 20:40] VITALS: BP 127/83; PULSE 76; RESP 18; O2SAT 96
--- NOTE | 2017-03-23 23:22 | NUR ---
neuro/behavior: pt. restless, pacing in room, stating she has to check things out "in case someone is trying to poison her." Asking about her pain meds, stating "the bottle says they're as needed. you only have to work around your driving". I told her she had her percocet one hour ago then she replied "ok then I'll be fine." Pt. has changed her clothes multiple times this evening, first into her clothes, then into a hospital gown, then placing her clothes on top of the hospital gown. Pt. asked myself and the outside solar sales consultant about the call light multiple times. Addendum: 03/24/17 at 3422 by CLEMENTE PALMA RN pt. came out with garbage stating "I found food in my room and somebodys dog is upset." pt. not making sense all night.
[2017-03-24] MEDS: oxyCODONE-Acetamin 5-325 mg Tablet PO PRN ×5 (03:13→22:25)
[2017-03-24 04:23] VITALS: BP 149/93; PULSE 73; RESP 18; O2SAT 97
[2017-03-24] MEDS: Pantoprazole 40 mg ER24 Tablet PO SCH (08:36)
--- NOTE | 2017-03-24 11:41 | NUR ---
Bhavani AG and let her know will need to hear from her and come see patient again today. Then will decide if patient can transfer to [facility]. Updated [facility] [employer]
--- NOTE | 2017-03-24 12:28 | PCM.PNPSY ---
Subjective Date of Service March 24, 2017 Subjective I spent 30 minutes both reviewing treatment plan with clinical team, interviewing the patient and providing supportive/educational psychotherapy. I spent more than 50% of the time counseling the patient. I reviewed the treatment plan with the patient and discussed options available including the potential risks, benefits and side effects. Leesa reports a marked improvement in thought organization and mood stability. Staff reports that she has had periods of paranoia over the past 48 hours but has been relatively easily redirected. A She slept 7. Hold on a second final SongAfter site I get hours and denies depression manic or psychotic symptoms review. She denies medication side effects. Patient was able to identify her medications and what they were used to treat. Leesa appeared significantly improved today. I spoke again with her brother by phone who reported that their mother struggled with Alzheimer's. He is noticing over the past 6 months that Leesa has similar behaviors. Current Medications Current Medications Fluconazole 150 mg ONCE ONCE PO Last administered on 03/22/17 13:39; Admin Dose 150 MG; Start 03/22/17 at 12:50; Stop 03/22/17 at 12:51; Status DC Nicotine Polacrilex 2 mg Q4H PRN BUCCAL Last administered on 03/22/17 23:57; Admin Dose 2 MG; Start 03/22/17 at 22:05 Mental Status Exam Vital Signs Vital Signs Date Time Temp Pulse Resp B/P Pulse Ox O2 Delivery O2 Flow Rate FiO2 03/24/17 04:23 36.7 73 18 149/93 97 Room Air Appearance: Neat/well groomed Attitude: Pleasant, Cooperative Behavior: No unusual behavior Affect: Well Modulated/Appropriate Mood: Euthymic Thought Process/Associations: Logical/Sequential, Goal Directed Speech Production: Normal Speech Rate: Normal Speech Articulation: Normal Thought Content: Appropriate Danger to Self/Suicidal Ideati: None Danger to Others: None Consciousness: Alert Orientation: Person, Place, Date, Situation Memory: Short Term Memory (Impaired) Estimate Intellectual Function: Average Basis for IQ estimate: Awareness current events, Word use/vocabulary, Educational history, Employment history Attention/Concentration & Cogn: Grossly Intact Cognitive Testing Method: Abstract Reasoning during interview, Proverb interpretation, Serial computations, Spelling forward & backward Insight: Good Judgement: Good Strengths/Assets Mini-Mental Status exam from 03/22/2017 19 out of 30 03/23/2017 23 out of 30 03/24/17 28 out of 30 Result Diagram: 03/23/17 0550 03/23/17 0550 Mental Health Plan The patient is a 66-year-old, white female, currently living independently.She was brought to the emergency department after being found talking nonsensically, disoriented and agitated. She does take both methadone and oxycodone and reported increasing doses of methadone over the past several months. It is most likely that the recent confusion and behavior changes are likely due to the combination of being overmedicated with the combination of methadone and Percocet. Here in the hospital, she also already has shown approximately 80% improvement since being admitted approximately 72 hours ago. She was quite impaired Wednesday and Wednesday as demonstrated by Mini-Mental Status exams in the delirious range. Today She is oriented in her thought, and denies difficulty with mood. She is very focused on getting a cigarette. Schizophrenia would be a presentation for more thought disorganization. Her disorientation and rapid improvement with no psychiatric meds leads me to believe she is recovering from a delirium and/or Coping with the early stages of a neurocognitive disorder (patient's mother did have Alzheimer's). Today patient is alert and oriented and showing relatively good cognitive skills. Her Mini-Mental status results: Mini-Mental Status exam from 03/22/2017 19 out of 30 03/23/2017 23 out of 30 03/24/17 28 out of 30 [place] Mon[place] I 1. Preliminary substance-induced thought disorder, methadone and Percocet. Rule out major depressive disorder. 2. Rule out neurocognitive disorder, unspecified. [place] IIDeferred. [place] IIINone. [place] IVUnknown. [place] VCurrent GAF equal to 40. Medications Treatments Recommend patient be discharged to home with home visit care to check on her. Recommend client participate in a pain clinic and only take medications as scheduled and with the bubble pack Recommend client follow-up with [facility] for psychiatric follow-up and ongoing counseling to assess the need for potential medications for a potential depression. Recommend client start 5 mg of Abilify every morning to target symptoms of paranoia and depression. Pranav Raza MD March 24, 2017 12:28
[2017-03-24 12:53] VITALS: BP 135/84; PULSE 74; RESP 19; O2SAT 97
--- NOTE | 2017-03-24 12:57 | PCM.PNMED ---
Subjective Date of Service March 24, 2017 Subjective Patient was seen and examined at bedside today. Patient denies any chest pain, shortness of breath, nausea, vomiting, diarrhea. The patient remains tangential in thoughts and paranoid. The patient continues to fixate on the "redheaded" nurse who is leading a drug-ring and should be watched closely. Overnight events: None Exam Vital Signs Vital Sign - Last Date Time Temp Pulse Resp B/P Pulse Ox O2 Delivery O2 Flow Rate FiO2 03/24/17 04:23 36.7 73 18 149/93 97 Room Air Intake and Output 03/23/17 03/23/17 03/24/17 Cumulative From/Thru 15:00 23:00 07:00 03/20/17 10:10 - 03/24/17 06:14 Intake Total 900 ml 554 ml 4941 ml Output Total 1475 ml Balance 900 ml 554 ml 3466 ml Intake Oral 900 ml 554 ml 4941 ml Output Urine Total 1475 ml # Voids 3 4 18 # Bowel Movements 0 3 IVs and Medications IV Fluids Physical Exam: GEN: Patient was awake, alert, responding appropriately to questions, however patient does have tangential thinking HEENT: Pupils equal round and reactive to light, extraocular eye muscles intact , Neck soft supple, trachea midline, nomocephalic/atraumatic CV: +S1/S2, regular rate and rhythm, no murmurs auscultated Respiratory: CTAB, no wheezes, rales, rhonchi GI: +bowel sounds x4, soft, compressible, nontender to palpation EXT: no clubbing, cyanosis, edema Neuro: Cranial nerves II-XII grossly intact Psych: mood and affect were appropriate Medications Reviewed: Medications were reviewed in detail Lab and Diagnostics Result Diagram: 03/23/17 0550 03/23/17 0550 Assessment & Plan Patient is a 66-year-old female with a very peculiar presentation of an acute alteration in mental status and apparent new onset psychosis admitted for further evaluation with etiology of mental status change as of yet unclear Acute psychosis most likely secondary to excessive usage of opioids - Evaluation thus far has not yielded diagnosis or suggested possible cause of his condition - Chronicity of condition as well remains in question however patient was seen in 2012 with a cholecystitis and at that time now is on is a behavior abnormal mentation was noted and it is assumed that this is of a more acute onset - Emergency room evaluation including cerebral spinal fluid did not demonstrate any evidence of infection or other possible abnormalities which could explain patient's current condition - Patient is on chronic narcotic therapy, and now she does confirm taking oxycodone she denies currently being on methadone which he has also been prescribed near past. - Plan for continued close observation of patient, MRI brain with and without contrast did not seem to demonstrate any changes consistent with patient's drastic behavioral disturbance. - We will hold patient's psychiatric medications at this time including venlafaxine at this time. - Neurology following - Psychiatry currently following - EEG normal -Start Abilify 10 mg daily Urethritis possibly secondary to yeast infection -Diflucan one-time dose -Follow up with patient the morning Hypertension - Currently stable has returned to baseline without any medical intervention - We will continue to monitor Chronic pain: - It was confirmed that the patient is taking oxycodone 10 mg 4 times a day - Patient was started on Percocet 5/325mg and is currently effective - continue to hold methadone at this time do not restart patient's home dose of Percocet 10/325 - we will continue to monitor Disposition: The patient currently still has acute psychosis and now with some paranoia. After discussion with psychiatry (Dr. Raza) the patient seems to have decreased paranoid delusions with him however she seems to express significant paranoid delusions with me. At this time Dr. Raza recommends starting 10 mg of Abilify daily to help with the psychosis. We will continue to monitor the patient and if she turns around and reverts to her baseline cognition then potentially she could go home and be followed closely with [facility]. This was discussed with case management and are currently working on setting up appointments with [facility]. GI Prophylaxis: Not indicated VTE Mechanical Devices: Intermittant Pneumatic CD Resuscitation Status: CPR: Attempt Resuscitation Gissel Billingsley DO March 24, 2017 12:57
[2017-03-24] MEDS: ARIPiprazole 10 mg Tablet PO SCH (14:22)
--- NOTE | 2017-03-24 17:50 | NUR ---
Behavior Patient slept only 2 hrs last night, very restless, did not sleep past 2 or 3 am. Patient continues to be paranoid at times. Reporting to hospitalist/nursing service director to day that nurse is attempting to poison her. Pattern is that patient appears to do better as day progresses, then digress toward evening. Patient also show increased activity in the morning. Frequent references to "the love of her life" who she seems to have not seen for many years and is unsure whether this person is still alive. Addendum: 03/24/17 at 1842 by TYLOR GARCIA RN Patient continues to report tactile burning/sensitivity.
[2017-03-24 20:14] VITALS: BP 121/81; PULSE 96; RESP 18; O2SAT 97
[2017-03-24] MEDS: LORazepam 1 mg Tablet PO PRN (22:31)
[2017-03-25] MEDS: oxyCODONE-Acetamin 5-325 mg Tablet PO PRN ×5 (05:33→22:19)
[2017-03-25 05:37] VITALS: BP 116/72; PULSE 74; RESP 18; O2SAT 96
[2017-03-25] MEDS: LORazepam 1 mg Tablet PO PRN ×3 (05:39→22:18)
[2017-03-25] MEDS: Pantoprazole 40 mg ER24 Tablet PO SCH (06:34)
--- NOTE | 2017-03-25 06:39 | NUR ---
behavior/pain Pt was restless in the beginning of shift. able to make needs known. c/o worsening back and neck pain from lying in hospital bed. offered to have the pull out couch bed set up, pt agreed to try tonight. forgetful at times; no paranoia or hallucinations noted this shift. Percocet given for back and neck pain. Ativan given per pt's request. able to sleep for 4 hours in the pull out couch bed. Pt reported feeling better after getting some sleep with less pain and "relaxed" neck. Hugs #[phone].
--- NOTE | 2017-03-25 09:00 | NUR ---
ULISES signed DAVID Ash
[2017-03-25] MEDS: ARIPiprazole 10 mg Tablet PO SCH (09:27)
[2017-03-25 13:14] VITALS: BP 135/73; PULSE 88; RESP 20; O2SAT 97
--- NOTE | 2017-03-25 15:05 | NUR ---
Social Work: Continued d/c planning Data: WILDLIFE PROTECTOR met with pt regarding d/c plan. Pt states that she plans to go to her friends home at discharge, Hayden Sanders at [phone]. WILDLIFE PROTECTOR called Hayden who states that he talked with pt today but that they had not discussed this plan. He states he is willing to check in with pt every 1-2 days either by phone or by stopping by her home but that he would not be a good candidate to supervise her 07/06 if needed. He states she has a friend Elana who may be able to assist in this way if needed. UR specialist working on Abilify authorization. Psych recommending follow up with [facility] and going home with check in's if pt is alone. Plan: Pt will d/c home via POV or taxi when medically stable, friend to check in on her. UR specialist working on Abilify authorization. Psych recommending follow up with [facility] and going home with check in's if pt is alone. WILDLIFE PROTECTOR will continue to follow. DAVID Ash
--- NOTE | 2017-03-25 15:53 | NUR ---
Faxed prescription to pharmacy and they ran for copay which was $0, updated and BROADCAST DESIGNER. They know medication is being filled across the street at [facility].
--- NOTE | 2017-03-25 16:23 | PCM.PNPSY ---
Subjective Date of Service March 25, 2017 Subjective I spent 30 minutes both reviewing treatment plan with clinical team, interviewing the patient and providing supportive/educational psychotherapy. I spent more than 50% of the time counseling the patient. I reviewed the treatment plan with the patient and discussed options available including the potential risks, benefits and side effects. I reviewed the case with the patient's physician, her brother, the nursing staff that taking care of her the past 24 hours and the patient. Leesa reports a normal thought organization and mood stability but staff is reporting that she sundowning at night with frequent complaints of paranoia and a delusion that there is a redheaded nurse with a drug ring on the medical floor. Staff reports that these periods of paranoia have occurred over the past 72 hours but that has she has been relatively easily redirected. She denies depression manic or psychotic symptoms review. She denies medication side effects. Abilify 10 mg was started yesterday. Leesa appeared bright and easily engaged today. I spoke again with her brother by phone who reported that when he talks to her at night she frequently has delusional talking and paranoid themes. Current Medications Current Medications Aripiprazole 10 mg DAILY PO Last administered on 03/25/17t 09:27; Admin Dose 10 MG; Start 03/24/17 at 12:50 Mental Status Exam Vital Signs Vital Signs Date Time Temp Pulse Resp B/P Pulse Ox O2 Delivery O2 Flow Rate FiO2 03/25/17 13:14 36.7 88 20 135/73 97 Room Air Appearance: Neat/well groomed Attitude: Pleasant, Cooperative Behavior: No unusual behavior Affect: Well Modulated/Appropriate Mood: Euthymic Thought Process/Associations: Logical/Sequential, Goal Directed Speech Production: Normal Speech Rate: Normal Speech Articulation: Normal Thought Content: Appropriate Danger to Self/Suicidal Ideati: None Danger to Others: None Delusions: Other (patient denies paranoid delusions with me however at night staff reports sundowning behaviors with paranoia and delusions.) Consciousness: Alert Orientation: Person, Place, Date, Situation Memory: Short Term Memory (Impaired) Estimate Intellectual Function: Average Basis for IQ estimate: Awareness current events, Word use/vocabulary, Educational history, Employment history Attention/Concentration & Cogn: Grossly Intact Cognitive Testing Method: Abstract Reasoning during interview, Proverb interpretation, Serial computations, Spelling forward & backward Insight: Good Judgement: Good Result Diagram: 03/23/17 0550 03/23/17 0550 Mental Health Plan The patient is a 66-year-old, white female, currently living independently.She was brought to the emergency department after being found talking nonsensically, disoriented and agitated. She does take both methadone and oxycodone and reported increasing doses of methadone over the past several months. It is most likely that the recent confusion and behavior changes are likely due to the combination of being overmedicated with the combination of methadone and Percocet. Here in the hospital, she also already has shown approximately 80% improvement since being admitted approximately 72 hours ago. She was quite impaired Wednesday and Wednesday as demonstrated by Mini-Mental Status exams in the delirious range. Today She is oriented in her thought, and denies difficulty with mood. She is very focused on getting a cigarette. Schizophrenia would be a presentation for more thought disorganization. Her disorientation and rapid improvement with no psychiatric meds leads me to believe she is recovering from a delirium and/or Coping with the early stages of a neurocognitive disorder (patient's mother did have Alzheimer's). Today patient is alert and oriented and showing relatively good cognitive skills. Her Mini-Mental status results: Mini-Mental Status exam from 03/22/2017 19 out of 30 03/23/2017 23 out of 30 03/24/17 28 out of 30 Patient started Abilify today and if she is able to demonstrate ability to attend activities of daily living would likely be okay for a trial at home In the next several days. [place] I 1. Preliminary substance-induced thought disorder, methadone and Percocet. Rule out major depressive disorder. 2. Rule out neurocognitive disorder, unspecified. [place] IIDeferred. [place] IIINone. [place] IVUnknown. [place] VCurrent GAF equal to 40. Medications Treatments Recommend patient be discharged to home with home health care to check on her. Recommend client participate in a pain clinic and only take medications as scheduled and with the bubble pack Recommend client follow-up with [facility] for psychiatric follow-up and ongoing counseling to assess the need for potential medications for a potential depression. Recommend client continue trial of 10 mg mg of Abilify every morning to target symptoms of paranoia and depression. Pranav Raza MD March 25, 2017 16:23
--- NOTE | 2017-03-25 17:23 | PCM.PNMED ---
Subjective Date of Service March 25, 2017 Subjective Patient was seen and examined at bedside today. Patient denies any chest pain, shortness of breath, nausea, vomiting, diarrhea. Patient seemed better today however she still has significant tangential thought processes. The patient is still fixated on a redheaded nurse that is in charge of a drug ringing in the area. Patient seemed more easily directed today. Overnight events: The patient reports that patient still has a significant amount of paranoia with sundowning. Exam Vital Signs Vital Sign - Last Date Time Temp Pulse Resp B/P Pulse Ox O2 Delivery O2 Flow Rate FiO2 03/25/17 13:14 36.7 88 20 135/73 97 Room Air Intake and Output 03/24/17 03/24/17 03/25/17 Cumulative From/Thru 15:00 23:00 07:00 03/20/17 10:10 - 03/25/17 06:36 Intake Total 658 ml 400 ml 5999 ml Output Total 1475 ml Balance 658 ml 400 ml 4524 ml Intake Oral 658 ml 400 ml 5999 ml Output Urine Total 1475 ml # Voids 4 4 26 # Bowel Movements 2 5 Exam Physical Exam: GEN: Patient was awake, alert, responding appropriately to questions with some tangential thought processes HEENT: Pupils equal round and reactive to light, extraocular eye muscles intact , Neck soft supple, trachea midline, nomocephalic/atraumatic CV: +S1/S2, regular rate and rhythm, no murmurs auscultated Respiratory: CTAB, no wheezes, rales, rhonchi GI: +bowel sounds x4, soft, compressible, nontender to palpation EXT: no clubbing, cyanosis, edema Neuro: Cranial nerves II-XII grossly intact Psych: mood and affect were appropriate IVs and Medications Medications Reviewed: Medications were reviewed in detail Lab and Diagnostics Result Diagram: 03/23/1750 03/23/17 0550 Assessment & Plan Patient is a 66-year-old female with a very peculiar presentation of an acute alteration in mental status and apparent new onset psychosis admitted for further evaluation with etiology of mental status change as of yet unclear Acute psychosis most likely secondary to excessive usage of opioids - Evaluation thus far has not yielded diagnosis or suggested possible cause of his condition - Chronicity of condition as well remains in question however patient was seen in 2012 with a cholecystitis and at that time now is on is a behavior abnormal mentation was noted and it is assumed that this is of a more acute onset - Emergency room evaluation including cerebral spinal fluid did not demonstrate any evidence of infection or other possible abnormalities which could explain patient's current condition - Patient is on chronic narcotic therapy, and now she does confirm taking oxycodone she denies currently being on methadone which he has also been prescribed near past. - Plan for continued close observation of patient, MRI brain with and without contrast did not seem to demonstrate any changes consistent with patient's drastic behavioral disturbance. - We will hold patient's psychiatric medications at this time including venlafaxine at this time. - Neurology following - Psychiatry currently following - EEG normal -Start Abilify 10 mg daily Urethritis possibly secondary to yeast infection -Diflucan one-time dose -Follow up with patient the morning Hypertension - Currently stable has returned to baseline without any medical intervention - We will continue to monitor Chronic pain: - It was confirmed that the patient is taking oxycodone 10 mg 4 times a day - Patient was started on Percocet 5/325mg and is currently effective - continue to hold methadone at this time do not restart patient's home dose of Percocet 10/325 - we will continue to monitor Disposition: The patient currently still has acute psychosis and now with some paranoia. According to Dr. Raza's note he is recommending the patient to be able to be discharged home with close follow-up with home health and [facility]. We will continue the patient on Abilify 10 mg daily and will discuss more at Dr. Raza tomorrow for possible safe discharge. GI Prophylaxis: Not indicated VTE Mechanical Devices: Intermittant Pneumatic CD Resuscitation Status: CPR: Attempt Resuscitation Gissel Billingsley DO March 25, 2017 17:23
--- NOTE | 2017-03-25 19:23 | NUR ---
Behavior/pain Pt is forgetful at times; no paranoia or hallucinations noted. Has ambulated around unit through out the shift. Hugs tag in place, does need reminders to avoid going too close to exit doors. Percocet given Q 4 hours for back and neck pain. PO Ativan given at request of pt midday. Frequent rounding in place, will continue to monitor.
[2017-03-25 21:27] VITALS: BP 107/71; PULSE 78; RESP 20; O2SAT 96
--- NOTE | 2017-03-25 23:16 | NUR ---
Behavior Patient has been cooperative with care, pleasant to staff, said "I love you all." Discussed pain medication with patient, Q4 hour PRN availability, and that the next dose could be given at 10:30pm. Patient became slightly agitated and said that we "should have clickers so that we stay on time with pain medication so that it's fair." (Patient's board was updated by day RN with times that medication could be given and it stated 10pm, although last dose was at 6:30pm). Reoriented patient to PRN availability and she appeared more calm. Patient reported groin pain at this time, stated it was from a "hair that I pulled out of my crotch that was this long" and measured with hands approximately six inches, and reported that it was "a genetic thing- you wouldn't understand". When pain medication was given at 2220, patient reported a 2/10 pain level and said that her pain was in her upper back and neck, did not mention groin pain at all. Patient walked in hallway twice between [id number], requested applesauce and an extra roll of toilet paper- both were given and patient was appreciative. Lalogs tag remains in place for patient safety. Addendum: 03/26/17 at 0446 by NORBERT MOHR RN Patient remained alert and oriented to place, self, and staff members caring for her through the night. Multiple requests and reminders about when Percocet and Ativan are due. No signs of paranoia overnight.
[2017-03-26] MEDS: oxyCODONE-Acetamin 5-325 mg Tablet PO PRN ×6 (01:58→23:39)
[2017-03-26] MEDS: LORazepam 1 mg Tablet PO PRN ×3 (06:09→23:39)
[2017-03-26 06:11] VITALS: BP 117/81; PULSE 77; RESP 20; O2SAT 96
[2017-03-26] MEDS: Pantoprazole 40 mg ER24 Tablet PO SCH (06:13)
[2017-03-26 07:51] LABS: Mean Corpuscular Hemoglobin 28.7 pg (27.0-35.0); Mean Corpuscular Volume 84.1 fL (81-100)
[2017-03-26] MEDS: ARIPiprazole 10 mg Tablet PO SCH (08:06)
--- NOTE | 2017-03-26 11:55 | NUR ---
Social Work: Continued d/c planning Data: TOOL ENGINEER called Medicaid access to MH line to connect pt with [facility]. Pt has [facility], but does not have a MH benefit, TOOL ENGINEER confirmed this with Medicaid access line. TOOL ENGINEER will continue to look into outpt MH options for pt. DAVID Ash
[2017-03-26 13:24] VITALS: BP 111/63; PULSE 72; RESP 20; O2SAT 96
--- NOTE | 2017-03-26 15:14 | NUR ---
Scheduled patient appointment with primary care provider Kenisha Rubio for Wednesday03/29/17 check in at 815AM for 830AM appointment Updated PARK NATURALIST
--- NOTE | 2017-03-26 15:29 | NUR ---
Social Work: Readiness for d/c Data: FOOT DRILL OPERATOR spoke with hospitalist, who states pt likely ready for d/c tomorrow to monitor Abilify medication. UR specialist set up appointment with pt's PCP Dr Rubio on 03/29 at 8:15am. FOOT DRILL OPERATOR faxed [facility] referral to [facility] and received a voice mail from Melvin with [facility] (phone [phone]) who states he will call pt next week regarding a [facility] application as her current does not supply [facility]; he will assist her with application and then review for [facility]. FOOT DRILL OPERATOR attempted to meet with pt regarding this plan and to discuss HH, RN and FOOT DRILL OPERATOR, but pt is meeting with psychiatrist. FOOT DRILL OPERATOR left a voice mail with pt's brother of plan and left the phone number for [facility] ([phone]) and encouraged him to call for resources for his sister. FOOT DRILL OPERATOR left a voice mail with pt's friend Hayden requesting a call back regarding if he can take pt to her PCP appointment on Wednesday morning at 8:15am, checking in on her daily, and if he has a working phone number for pt's friend Elana. FOOT DRILL OPERATOR will continue to follow and will discuss HH options with pt on 03/27. Plan: Pt will likely d/c home tomorrow with HH, PCP appointment set up for 03/29 at 8:15am, [facility] referral sent, [facility] counsil info given. FOOT DRILL OPERATOR follow up regarding HH choice on 03/27 and attempt phone calls to Hayden and pt's brother again. FOOT DRILL OPERATOR will continue to follow. DAVID Ash
--- NOTE | 2017-03-26 15:31 | PCM.PNMED ---
Subjective Date of Service March 26, 2017 Subjective Patient was seen and examined at bedside today. Patient denies any chest pain, shortness of breath, nausea, vomiting, diarrhea. Patient remains paranoid but is easily directed. The patient seems more easily directed today and does not have as much pressured speech and she has had in the last couple of days. Overnight events: Patient did not exhibit any paranoia overnight. Nursing reported that the patient did sleep for at least 4 hours last night uninterrupted which is a new development for the patient as she generally does not sleep much. Exam Vital Signs Vital Sign - Last Date Time Temp Pulse Resp B/P Pulse Ox O2 Delivery O2 Flow Rate FiO2 03/26/17 13:24 36.5 72 20 111/63 96 Room Air Intake and Output 03/25/17 03/25/17 03/26/17 Cumulative From/Thru 15:00 23:00 07:00 03/20/17 10:10 - 03/26/17 06:27 Intake Total 622 ml 150 ml 6771 ml Output Total 1475 ml Balance 622 ml 150 ml 5296 ml Intake Oral 622 ml 150 ml 6771 ml Output Urine Total 1475 ml # Voids 3 2 31 # Bowel Movements 0 1 6 Exam Physical Exam: GEN: Patient was awake, alert, responding appropriately to questions, still has some paranoid delusions however it seemed improved today HEENT: Pupils equal round and reactive to light, extraocular eye muscles intact , Neck soft supple, trachea midline, nomocephalic/atraumatic CV: +S1/S2, regular rate and rhythm, no murmurs auscultated Respiratory: CTAB, no wheezes, rales, rhonchi GI: +bowel sounds x4, soft, compressible, nontender to palpation EXT: no clubbing, cyanosis, edema Neuro: Cranial nerves II-XII grossly intact Psych: mood and affect were appropriate IVs and Medications Medications Reviewed: Medications were reviewed in detail Lab and Diagnostics Result Diagram: 03/26/1773903/26/17739 Assessment & Plan Patient is a 66-year-old female with a very peculiar presentation of an acute alteration in mental status and apparent new onset psychosis admitted for further evaluation with etiology of mental status change as of yet unclear Acute psychosis most likely secondary to excessive usage of opioids - Evaluation thus far has not yielded diagnosis or suggested possible cause of his condition - Chronicity of condition as well remains in question however patient was seen in 2012 with a cholecystitis and at that time now is on is a behavior abnormal mentation was noted and it is assumed that this is of a more acute onset - Emergency room evaluation including cerebral spinal fluid did not demonstrate any evidence of infection or other possible abnormalities which could explain patient's current condition - Patient is on chronic narcotic therapy, and now she does confirm taking oxycodone she denies currently being on methadone which he has also been prescribed near past. - Plan for continued close observation of patient, MRI brain with and without contrast did not seem to demonstrate any changes consistent with patient's drastic behavioral disturbance. - We will hold patient's psychiatric medications at this time including venlafaxine at this time. - Neurology following - Psychiatry currently following - EEG normal -Start Abilify 10 mg daily -Melatonin 5 mg daily at bedtime Urethritis possibly secondary to yeast infection -Diflucan one-time dose -Follow up with patient the morning Hypertension - Currently stable has returned to baseline without any medical intervention - We will continue to monitor Chronic pain: - It was confirmed that the patient is taking oxycodone 10 mg 4 times a day - Patient was started on Percocet 5/325mg and is currently effective - continue to hold methadone at this time do not restart patient's home dose of Percocet 10/325 - we will continue to monitor Disposition: The patient currently still has acute psychosis with some paranoia. However this does seem to be improved. At this time is difficult to sit the patient up with [facility] due to insurance reasons. At this time they are currently sitting up home health for the patient to ensure that her medications are being taken appropriately. We are calling the patient's brother and a few friends to see if they can keep close monitoring on the patient daily. Since we are unable to establish the patient with mental health services the patient's primary care has been contacted to continue the Abilify and manage this medication. The patient is currently high functioning however she does still have some dementia with paranoia. It seems that the patient would be safer to go into a monitored unit however if this is not available then having close monitoring by friends and family and home health is the next best option. [facility] services are also being put in place and if the patient is able to have all these services established and ready to go for for discharge she may be able to discharge home tomorrow. GI Prophylaxis: Not indicated VTE Mechanical Devices: Intermittant Pneumatic CD Resuscitation Status: CPR: Attempt Resuscitation Gissel Billingsley DO March 26, 2017 15:31
--- NOTE | 2017-03-26 16:37 | NUR ---
Student Nurse Note: Pain: Pt complaining of back pain and general neuropathy. Mentation: Pt goes from pleasant to agitated quickly. Pt expresses paranoias frequently and concerns about her medications. Met w/ mental health today, and will be possibly discharging to home tomorrow.
[2017-03-26 21:31] VITALS: BP 103/69; PULSE 64; RESP 20; O2SAT 95
--- NOTE | 2017-03-27 02:50 | NUR ---
Mentation Patient remained alert and oriented, cooperative with care this shift. No signs of agitation or paranoia overnight. Some conversation was nonsensical- patient reported that if she had the Hugs tag off, she would go sleep with the puppies and kittens, but assured that she is not trying to escape. Also reported that when she first came here, she was escorted by the police because they were worried about her being around all the drugs in her neighborhood. Reported insomnia, although patient did have the ordered 5mg Melatonin at HS. Patient slept from about [id number], but has been awake most of the night since then. Addendum: 03/27/17 at 0622 by NORBERT MOHR RN Patient slept again from about [id number].
[2017-03-27] MEDS: Pantoprazole 40 mg ER24 Tablet PO SCH (06:12)
[2017-03-27] MEDS: oxyCODONE-Acetamin 5-325 mg Tablet PO PRN ×3 (06:12→13:51)
[2017-03-27 06:38] VITALS: BP 118/82; PULSE 60; RESP 20; O2SAT 96
[2017-03-27] MEDS: ARIPiprazole 10 mg Tablet PO SCH (08:46)
--- NOTE | 2017-03-27 08:59 | NUR ---
Pt complains of having burning of her thighs and labia upon urination and "acne-like bumps" on her labia.
[2017-03-27] MEDS: LORazepam 1 mg Tablet PO PRN (10:03)
--- NOTE | 2017-03-27 12:00 | NUR ---
Social Work: Readiness for discharge Data: Pt is on day 7 of hospitalization. EMR reviewed. states pt likely to d/c today. ABE TEACHER met with pt regarding HH, pt prefers [facility] , ABE TEACHER referred pt to [facility], will fax over paper work once D/C orders complete. ABE TEACHER spoke with pt and pt's brother over phone about the plan, both in agreement. Pt will d/c home via POV today with a friend or a private taxi. ABE TEACHER awaiting phone call back from Hayden regarding if he can take her to her appointment on Wednesday or if he can help make sure pt gets there by a different form of transportation. Plan: Pt will d/c home today via POV with friend or taxi. ABE TEACHER awaiting phone call back from Hayden regarding if he can take her to her appointment on Wednesday or if he can help make sure pt gets there by a different form of transportation. See plan below. -PCP appointment for pt is on 03/29 at 8:15am, ABE TEACHER requested Hayden to take pt to this. -Home Health RN and ABE TEACHER set up through [facility] . -[facility] referral sent yesterday, they plan to follow up with pt next week regarding application. -Pt's brother states he will call pt every couple of days to check in on her. -Pt's friend Hayden states he will either call pt or stop by her home ever 1-2 days to check in on her. DAVID Ash Addendum: 03/27/17 at 1342 by OLLIE OLSEN ABE TEACHER spoke with Hayden who states he cannot take pt to appointment but that he will remind her of it the night before. ABE TEACHER spoke with pt who plans to go to the appointment and states she is looking forward to seeing Dr. Rubio. She plans to drive herself but states she will get a ride if needed. ABE TEACHER encouraged her to see if a friend can drive her. No further d/c planning needs. DAVDI Ash
[2017-03-27] MEDS ORDERED: NIC7 TRANSDERM (12:39)
[2017-03-27] MEDS ORDERED: NICO2LOZ47 BUCCAL (12:39)
[2017-03-27] MEDS ORDERED: ARIP10TA14 PO (12:39)
[2017-03-27] MEDS ORDERED: ARNI120T TP (12:39)
[2017-03-27] MEDS ORDERED: NICO1PAT5 TRANSDERM (12:39)
[2017-03-27] MEDS ORDERED: MELA5TAB14 PO (12:39)
[2017-03-27] MEDS ORDERED: OXYC1TAB24 PO (12:39)
[2017-03-27] MEDS ORDERED: NICO1PAT6 TOPICAL (12:39)
--- NOTE | 2017-03-27 12:45 | PCM.DIMED ---
Discharge Instructions Date of Service March 27, 2017 Dates of Hospitalization March 20, 2017 at 14:49 Discharge Diagnosis Discharge Diagnosis Altered mental status secondary to over dose of pain medications Chronic pain Urethritis Hypertension Medication Instructions Please only take the medications that have been prescribed to you on this list. Do not take any other medications unless they are prescribed to you by another physician. Diet No restrictions Activity Other (do not drive) Call your provider Fever or Chills, Shortness of breath, Weakness (unilateral) Patient Instructions Please stop smoking as the smoking and the use of chronic pain medications are causing alterations in your thinking patterns and your mind. You have been prescribed nicotine patches to help with quitting. If you need further help please follow-up with your primary care physician. Please stop taking methadone as a combination of methadone and smoking and chronic pain medications also seems to be affecting your mind. Follow-up plan Home health will come by to help you with your medications Social work will come by to check on you to ensure your safety Your friend Hayden will help with checking on you daily to ensure her safety Your brother will be calling you daily to check in on you. Your primary care provider will help with managing your medications A [facility] referral has been made to continue to help with further management and monitoring Follow-up Provider: Kenisha Rubio MD Follow-up with PCP in: 1 week (you have an appointment scheduled for Wednesday at 8:[address] Rubio. If you have any further questions please call her office. ) Additional Information Please follow-up with mental health services Gissel Billingsley DO March 27, 2017 12:45
--- NOTE | 2017-03-27 12:53 | PCM.DC.MED ---
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 Chronic pain Urethritis Hypertension Consultations Psychiatry (Dr Raza) Neurology (Dr. Sky) Brief History Pt is a 66 yo F present via EMS following call from neighbors who became concerned when patient was noted talking nonsensically and piling cloths outside of her apartment. She presented to ER still essentially pleasant but acting completely bizzar. Responses though in Hebrew made little sense and were rarely appropriate with the question asked. Pt was completely disoriented, unable to provide almost any useful history. She could provide no contacts to confirm if these changes were acute or chronic, no collateral history could be obtained. During my own examination i found much of the same. Pt was pleasant, though occasionally agitated and responded inappropriately in tangential fashion to all questions. She did endorse hip pain which is chronic, but followed this by saying if " I was home it would be gone because she could pull the shade and watch TV". All of her attempted history proceeded in this direction. When asked of medical history she responded "lots, for my whole life , but i can't give you my life story for now. For breakfast i had a banana, that is all i have eaten for the past 4 days. " All attempts at obtaining history yeilded little information, but she at least repeatedly denies any pains or distress. Hospital Course Patient is a 66-year-old female with a very peculiar presentation of an acute alteration in mental status and apparent new onset psychosis admitted for further evaluation with etiology of mental status change as of yet unclear The patient presented with the complaint of acute psychosis. Her brother called and noticed that the patient had some altered mental status as well as some paranoia. The patient was then admitted for further workup. Neurology was consulted (Dr. Sky) his family the patient did not have any physiologic causes for the altered mental status. Full infectious workup was also performed and found to be negative. Psychiatry was consulted and after extensive discussion with Dr. Raza he feels that this is an acute psychosis with paranoia secondary to the use of chronic opioids, nicotine, and methadone. The patient was started on Abilify 10 mg daily, was not given any methadone, and her opioid use was decreased from 10-325 for Percocet to 5/325mg every 4 hours when necessary pain with the hopes that this would help to decrease her psychosis and paranoia. While the patient does still remain paranoid that somebody is going to take her in that some of the nurses are currently participating in a local drug ring the patient is more redirectable and seems to be more stable. The patient is high functioning and does require monitoring. The patient will be sent home with home health to manage her medications as well as social work visits, her brother calling her daily, and a friend (Hayden) checking in on her daily. A [facility] referral has been made in order to continue monitoring the patient. It is hoped that the patient would get into some sort of mental health facility, but in the meantime her PCP Dr. Rubio has agreed to manage the patient's Abilify. In regards to the patient's chronic pain she goes to a pain clinic and [place] (she cannot remember the name of the clinic), but currently she has been well controlled with Percocet 5-325 every 4 hours when necessary. At this time it is not recommended that the patient continue on methadone or marijuana as this may be contributing to her psychosis. This case was discussed extensively with psychiatry (Dr. Raza) throughout the stay including today and is in agreement with this plan. The patient is being discharged home in stable condition. Please see below for full hospital course: Acute psychosis most likely secondary to excessive usage of opioids - Evaluation thus far has not yielded diagnosis or suggested possible cause of his condition - Chronicity of condition as well remains in question however patient was seen in 2012 with a cholecystitis and at that time now is on is a behavior abnormal mentation was noted and it is assumed that this is of a more acute onset - Emergency room evaluation including cerebral spinal fluid did not demonstrate any evidence of infection or other possible abnormalities which could explain patient's current condition - Patient is on chronic narcotic therapy, and now she does confirm taking oxycodone she denies currently being on methadone which he has also been prescribed near past. - Plan for continued close observation of patient, MRI brain with and without contrast did not seem to demonstrate any changes consistent with patient's drastic behavioral disturbance. - We will hold patient's psychiatric medications at this time including venlafaxine at this time. - Neurology following - Psychiatry currently following - EEG normal -Start Abilify 10 mg daily -Melatonin 5 mg daily at bedtime Urethritis possibly secondary to yeast infection -Diflucan one-time dose -Follow up with patient the morning Hypertension - Currently stable has returned to baseline without any medical intervention - We will continue to monitor Chronic pain: - It was confirmed that the patient is taking oxycodone 10 mg 4 times a day - Patient was started on Percocet 5/325mg and is currently effective - continue to hold methadone at this time do not restart patient's home dose of Percocet 10/325 - we will continue to monitor Disposition: The patient currently still has acute psychosis with some paranoia. However this does seem to be improved. At this time is difficult to sit the patient up with [facility] due to insurance reasons. At this time they are currently sitting up home health for the patient to ensure that her medications are being taken appropriately. We are calling the patient's brother and a few friends to see if they can keep close monitoring on the patient daily. Since we are unable to establish the patient with mental health services the patient's primary care has been contacted to continue the Abilify and manage this medication. The patient is currently high functioning however she does still have some dementia with paranoia. It seems that the patient would be safer to go into a monitored unit however if this is not available then having close monitoring by friends and family and home health is the next best option. [facility] services are also being put in place and if the patient is able to have all these services established and ready to go for for discharge she may be able to discharge home tomorrow. Exam Vital Signs (Last) Date Time Temp Pulse Resp B/P Pulse Ox O2 Delivery O2 Flow Rate FiO2 03/27/17 06:38 36.8 60 20 118/82 96 Room Air Exam Physical Exam: GEN: Patient was awake, alert, responding appropriately to questions HEENT: Pupils equal round and reactive to light, extraocular eye muscles intact , Neck soft supple, trachea midline, nomocephalic/atraumatic CV: +S1/S2, regular rate and rhythm, no murmurs auscultated Respiratory: CTAB, no wheezes, rales, rhonchi GI: +bowel sounds x4, soft, compressible, nontender to palpation EXT: no clubbing, cyanosis, edema Neuro: Cranial nerves II-XII grossly intact Psych: mood and affect were appropriate Test 03/20/17 11:25 03/20/17 13:49 03/20/17 15:30 03/20/17 16:35 Neutrophils (%) (Auto) 71.0% (40-74) Lymphocytes (%) (Auto) 19.8% (14-46) Monocytes (%) (Auto) 8.3% (4-12) Eosinophils (%) (Auto) 0.4% (0-5) Basophils (%) (Auto) 0.3% (0-3) Erythrocyte Sedimentation Rate 2mm/hr (0-40) Prothrombin Time 10.2sec (8.1-12.5) Prothromb Time International Ratio 0.95ratio Activated Partial Thromboplast Time 25.2sec (22.8-33.0) Total Bilirubin 0.4mg/dL (0.0-1.2) Aspartate Amino Transf (AST/SGOT) 28U/L (0-50) Alanine Aminotransferase (ALT/SGPT) 21U/L (0-32) Alkaline Phosphatase 116U/L (25-165) Total Protein 6.6g/dL (6.4-8.4) Albumin 4.5g/dL (3.4-5.0) Salicylates Level < 3.0ug/mL (30-250) Acetaminophen Level < 15.0ug/mL Rx (10-25) Alcohols < 10mg/dL (0-10) CSF Appearance Clear (CLEAR) CSF Color Colorless (COLORLESS) CSF WBC 0/mm3 (0-5) CSF RBC 25/mm3 CSF Mononuclear WBCs % CSF Polynuclear WBCs % CSF Other Cells CSF Glucose 85mg/dL (45-90) CSF Total Protein 36mg/dL (15-45) Urine Color Straw (YELLOW) Urine Appearance Clear (CLEAR,HAZY) Urine pH 5.5 (5.0-8.0) Urine Specific [place] 1.005 (1.003-1.035) Urine Protein Negativemg/dL (NEG,TRACE) Urine Glucose (UA) Negativemg/dL (NEGATIVE) Urine Ketones Negativemg/dL (NEGATIVE) Urine Occult Blood Trace (NEGATIVE) Urine Nitrite Negative (NEGATIVE) Urine Bilirubin Negative (NEGATIVE) Urine Urobilinogen Normalmg/dL (NORMAL) Urine Leukocyte Esterase Negative (NEGATIVE) Urine RBC 0-2/hpf (0-2) Urine WBC 0-5/hpf (0-5) Urine Epithelial Cells None/hpf (NONE-MOD) Urine Crystals None seen (NONE SEEN) Urine Bacteria None/hpf (NONE-FEW) Urine Hyaline Casts None/lpf (NONE) Urine Granular Casts None seen (NONE SEEN) Urine Waxy Casts None seen (NONE SEEN) Urine Red Blood Cell Casts None seen (NONE SEEN) Urine White Blood Cell Casts None seen (NONE SEEN) Urine Mucus None seen (None Seen) Urine Trichomonas None seen (NONE SEEN) Urine Yeast None (NONE SEEN) Urinalysis Comment None Urine Culture Reflexed Not indicated Ammonia 41ug/dL (18-53) Hold May Top Tube Received (Received) Test 03/26/17 07:40 White Blood Count 7.8th/mm3 (3.8-10.1) Red Blood Count 5.61mil/mm3 (3.90-5.20) Hemoglobin 16.1g/dL (12.0-15.6) Hematocrit 47.2% (35.0-46.0) Mean Corpuscular Volume 84.1fL (81-100) Mean Corpuscular Hemoglobin 28.7pg (27.0-35.0) Mean Corpuscular Hemoglobin Concent 34.1% (32.0-37.0) Red Cell Distribution Width 14.2% (12.3-15.4) Platelet Count 317bil/L (150-400) Sodium Level 142mEq/L (134-144) Potassium Level 4.0mEq/L (3.5-5.2) Chloride Level 101mEq/L (97-108) Carbon Dioxide Level 26mmol/L (18-29) Blood Urea Nitrogen 15mg/dL (8-27) Creatinine 0.69mg/dL (0.57-1.00) Estimat Glomerular Filtration Rate 123mL/min (>59) Glucose Level 97mg/dL (60-99) Calcium Level 10.3mg/dL (8.5-10.1) Discharge Medications Discharge Medications Aripiprazole (Abilify) 10 Mg Tablet 10 MG PO DAILY Prescribed by: ANDREA MANSFIELD DO Arnica (Arnica) 120 Ml Tincture 120 ML TP QID Apply small amount to area of pain as needed up to 4 times a day only as needed Prescribed by: ANDREA MANSFIELD DO Cholecalciferol (Vitamin D3) (Vitamin D3) 1,000 Unit Tab.chew 1,000 UNIT PO DAILY (Reported) Melatonin (Melatonin) 5 Mg Tablet 5 MG PO HS Prescribed by: ANDREA MANSFIELD, DO Nicotine 14 mg/24 hr Patch (Nicotine 14 mg/24 hr Patch) 1 Each Patch.td24 1 PATCH TRANSDERM DAILY Start this after the 21mg patches run out. DO NOT SMOKE while using this product. Prescribed by: ANDREA MANSFIELD, DO Nicotine 21 mg/24 hr Patch (Nicotine 21 mg/24 hr Patch) 1 Each Patch.td24 1 PATCH TOPICAL DAILY Prescribed by: ANDREA MANSFIELD, DO Nicotine 7 mg/24 hr Patch (Nicotine 7 mg/24 hr Patch) 1 Each Patch.td24 1 PATCH TRANSDERM DAILY Start this after the 14mg patches run out. DO NOT SMOKE while using this product. Prescribed by: ANDREA MANSFIELD, DO Omeprazole (Omeprazole) 20 Mg Capsule.dr 1 TAB PO DAILY (Reported) Simvastatin (Simvastatin) 40 Mg Tablet 1 TAB PO DAILY (Reported) Terbinafine HCl (Terbinafine) 15 Gm Cream..g. 1 APPLIC TP DAILY (Reported) As needed Nicotine Polacrilex (Nicorette) 2 Mg Lozenge 2 MG BUCCAL Q4H PRN PRN For Tobacco Withdrawal Prescribed by: ANDREA MANSFIELD DO oxyCODONE-Acetaminophen 5-325 mg (oxyCODONE-Acetaminophen 5-325 mg) 1 Each Tablet 1 TAB PO Q4H PRN PRN For Pain Prescribed by: ANDREA MANSFIELD, DO Miscellaneous Medications Lidocaine (Topicaine) 113 Gm Gel..gram. 113 GM TP (Reported) Additional med instructions Please only take the medications that have been prescribed to you on this list. Do not take any other medications unless they are prescribed to you by another physician. Followup Plan Follow-up plan Home health will come by to help you with your medications Social work will come by to check on you to ensure your safety Your friend Hayden will help with checking on you daily to ensure her safety Your brother will be calling you daily to check in on you. Your primary care provider will help with managing your medications A [facility] referral has been made to continue to help with further management and monitoring Discharge Diet: No restrictions Discharge Activity: Other (do not drive) Patient Instructions Please stop smoking as the smoking and the use of chronic pain medications are causing alterations in your thinking patterns and your mind. You have been prescribed nicotine patches to help with quitting. If you need further help please follow-up with your primary care physician. Please stop taking methadone as a combination of methadone and smoking and chronic pain medications also seems to be affecting your mind. Follow-up Provider: Kenisha Rubio MD Follow-up with PCP in: 1 week (you have an appointment scheduled for Wednesday at 8:[address] Rubio. If you have any further questions please call her office. ) Time spent Greater than 35 minutes copies to: Kenisha Rubio MD, Precious L DO March 27, 2017 12:52
[2017-03-27 13:03] VITALS: BP 122/74; PULSE 68; RESP 20; O2SAT 99
--- NOTE | 2017-03-27 13:46 | PCM.PNPSY ---
Subjective Date of Service March 27, 2017 Subjective I spent 30 minutes both reviewing treatment plan with clinical team, interviewing the patient and providing supportive/educational psychotherapy. I spent more than 50% of the time counseling the patient. I reviewed the treatment plan with the patient and discussed options available including the potential risks, benefits and side effects. I reviewed the case with the patient's physician, her brother, the nursing staff that taking care of her the past 24 hours and the patient. Leesa reports a normal thought organization and mood stability. staff is reporting that she has been relatively easily redirected. She denies depression manic or psychotic symptoms review. She denies medication side effects. Abilify 10 mg was started and she is tolerating well. Leesa appeared bright and easily engaged today. Current Medications Current Medications Melatonin 5 mg HS PO Last administered on 03/26/17t 20:45; Admin Dose 5 MG; Start 03/26/17 at 21:00 Mental Status Exam Vital Signs Vital Signs Date Time Temp Pulse Resp B/P Pulse Ox O2 Delivery O2 Flow Rate FiO2 03/27/17 13:03 37.1 68 20 122/74 99 Room Air 03/27/17 06:38 36.8 60 20 118/82 96 Room Air Appearance: Neat/well groomed Attitude: Pleasant, Cooperative Behavior: No unusual behavior Affect: Well Modulated/Appropriate Mood: Euthymic Thought Process/Associations: Logical/Sequential, Goal Directed Speech Production: Normal Speech Rate: Normal Speech Articulation: Normal Thought Content: Appropriate Danger to Self/Suicidal Ideati: None Danger to Others: None Delusions: Other (patient denies paranoid delusions with me however at night staff reports sundowning behaviors with paranoia and delusions.) Consciousness: Alert Orientation: Person, Place, Date, Situation Memory: Short Term Memory (Impaired) Estimate Intellectual Function: Average Basis for IQ estimate: Awareness current events, Word use/vocabulary, Educational history, Employment history Attention/Concentration & Cogn: Grossly Intact Cognitive Testing Method: Abstract Reasoning during interview, Proverb interpretation, Serial computations, Spelling forward & backward Insight: Good Judgement: Good Result Diagram: 03/26/17 0740 03/26/17 0766 Mental Health Plan The patient is a 66-year-old, white female, currently living independently.She was brought to the emergency department after being found talking nonsensically, disoriented and agitated. She does take both methadone and oxycodone and reported increasing doses of methadone over the past several months. It is most likely that the recent confusion and behavior changes are likely due to the combination of being overmedicated with the combination of methadone and Percocet. Here in the hospital, she also already has shown approximately 80% improvement since being admitted approximately 72 hours ago. She was quite impaired Wednesday and Wednesday as demonstrated by Mini-Mental Status exams in the delirious range. Today She is oriented in her thought, and denies difficulty with mood. She is very focused on getting a cigarette. Schizophrenia would be a presentation for more thought disorganization. Her disorientation and rapid improvement with no psychiatric meds leads me to believe she is recovering from a delirium and/or Coping with the early stages of a neurocognitive disorder (patient's mother did have Alzheimer's). Today patient is alert and oriented and showing relatively good cognitive skills. Her Mini-Mental status results: Mini-Mental Status exam from 03/22/2017 19 out of 30 03/23/2017 23 out of 30 03/24/17 28 out of 30 03/27/17 28 of 30 Patient started Abilify and she is able to demonstrate ability to attend activities of daily living and I believe is ready for a trial at home. Henning Henning I 1. Preliminary substance-induced thought disorder, methadone and Percocet. Rule out major depressive disorder. 2. Rule out neurocognitive disorder, unspecified. Henning IIDeferred. Henning IIINone. Henning IVUnknown. Henning VCurrent GAF equal to 45. Medications Treatments Recommend patient be discharged to home with home health care to check on her. Recommend client participate in a pain clinic and only take medications as scheduled and with the bubble pack Recommend client follow-up with [facility] for psychiatric follow-up and ongoing counseling to assess the need for potential medications for a potential depression. Recommend client continue trial of 10 mg mg of Abilify every morning to target symptoms of paranoia and depression. Pranav Raza MD March 27, 2017 13:45
--- NOTE | 2017-03-27 13:56 | NUR ---
pain meds pt states that she goes to the pain clinic in [place]. She states that the doctors rotate and can't recall the name of any of the MDs who give her pain medications.
--- NOTE | 2017-03-27 14:25 | NUR ---
discharge paperwork reviewed, no questions at this time. pt is waiting for her ride. Hugs tag removed. pt denies pain/distress. belongings are bagged, pt wants to sit in windows for awhile before going home. pt refuses W/C ride.
== END 2017-03-27 15:20 | disposition home health service (06) | DRG 897 ==
LOC: EDBD 10:02 → SED 10:11 → MPC 14:49
PROVIDERS: ADMIT Family Medicine; ATTEND Family Medicine
PROC: 009U3ZX Drainage of Spinal Canal, Percutaneous Approach, Diagnostic (ICD-10-PCS; principal; 2017-03-20)
DX: F11.259 Opioid dependence with opioid-induced psychotic disorder, unspecified (principal); B37.41 Candidal cystitis and urethritis; T40.2X5A Adverse effect of other opioids, initial encounter; G89.29 Other chronic pain; I10 Essential (primary) hypertension; K21.9 Gastro-esophageal reflux disease without esophagitis; F17.210 Nicotine dependence, cigarettes, uncomplicated

== ENCOUNTER 2017-04-05 15:42 | Inpatient (IN) | payer MEDICARE, MEDICAID, OTHER ==
[~2017-04-05] VITALS: Ht 157.5 cm; Wt 59.9 kg
[~2017-04-05 15:42] MED LIST changes: +ARIP10TA14 PO; +ARNI120T TP; +MELA5TAB14 PO; -MTH10T PO; +NIC7 TRANSDERM; +NICO1PAT5 TRANSDERM; +NICO1PAT6 TOPICAL; +NICO2LOZ47 BUCCAL; +OMEP20CA11 PO; -OMEP40CA36 PO; -OXYC-474 PO; +OXYC1TAB24 PO; -SIMV20TA4 PO; +SIMV40TA5 PO; -VENL75TA3 PO
--- NOTE | 2017-04-05 15:54 | ED.REPORT ---
HPI-Headache Date of Service April 05, 2017 ED Provider: History of Present Illness: 66-year-old female here for headache, neck pain, confusion. She has chronic neck pain and worse in the last 2 months. Last cervical MRI was February 2017. She states she is to take oxycodone and methadone but has not had it 6 weeks. She has taken nothing today for it, possibly recently she took some methocarbamol. She has not thrown up, no fever. No recent URI symptoms. She is quite confused and does not make any sense when talking to me today. Is requesting multiple narcotics for pain. Denies SI or HI. Looking back at her previous records she was discharged here March 27 for very similar mental symptoms including psychosis. She was discharged home on 10 mg of Abilify but she never got it. The only med she tells me she takes as omeprazole. Dr. Rubio is her PCP, however she states she will not see her anymore. no known head injury Nursing Notes Stated Complaint: NECK, HEADACHE, NAUSEA Nursing Notes Reviewed: Yes Allergies: Coded Allergies: TAPE (Verified Allergy, Severe, ASHRAF, 03/20/17) Sulfa (Sulfonamide Antibiotics) (Verified Allergy, Intermediate, Rash, 03/20) alprazolam (Verified Allergy, Unknown, 03/20/17) bupropion HCl (Verified Allergy, Unknown, 03/20/17) varenicline tartrate (Verified Adverse Reaction, Mild, Dry throat, 03/20/17) Scheduled Aripiprazole (Abilify) 10 Mg Tablet 10 MG PO DAILY Arnica (Arnica) 120 Ml Tincture 120 ML TP QID Apply small amount to area of pain as needed up to 4 times a day only as needed Cholecalciferol (Vitamin D3) (Vitamin D3) 1,000 Unit Tab.chew 1,000 UNIT PO DAILY Melatonin (Melatonin) 5 Mg Tablet 5 MG PO HS Nicotine 14 mg/24 hr Patch (Nicotine 14 mg/24 hr Patch) 1 Each Patch.td24 1 PATCH TRANSDERM DAILY Start this after the 21mg patches run out. DO NOT SMOKE while using this product. Nicotine 21 mg/24 hr Patch (Nicotine 21 mg/24 hr Patch) 1 Each Patch.td24 1 PATCH TOPICAL DAILY Nicotine 7 mg/24 hr Patch (Nicotine 7 mg/24 hr Patch) 1 Each Patch.td24 1 PATCH TRANSDERM DAILY Start this after the 14mg patches run out. DO NOT SMOKE while using this product. Omeprazole (Omeprazole) 20 Mg Capsule.dr 1 TAB PO DAILY Simvastatin (Simvastatin) 40 Mg Tablet 1 TAB PO DAILY Terbinafine HCl (Terbinafine) 15 Gm Cream..g. 1 APPLIC TP DAILY Scheduled PRN Nicotine Polacrilex (Nicorette) 2 Mg Lozenge 2 MG BUCCAL Q4H PRN PRN For Tobacco Withdrawal oxyCODONE-Acetaminophen 5-325 mg (oxyCODONE-Acetaminophen 5-325 mg) 1 Each Tablet 1 TAB PO Q4H PRN PRN For Pain Miscellaneous Medications Lidocaine (Topicaine) 113 Gm Gel..gram. 113 GM TP General Time Seen by MD: 15:54 Chief Complaint Headache, Neck pain Hx Obtained From: Patient Unable to Obtain Hx: Patient condition, Mental status Arrived By: Ambulance Sudden in Onset?: No Onset Occurred: Onset unknown Symptom Duration: Waxes and wanes Location: : Generalized Radiation: : Neck, left lateral: Neck, posterior Severity: Current: Severe Severity: Maximum: Severe Recent Healthcare: Recent hospitalization, Recent testing Similar Sx Previous: Yes Risk-Headache Risk Notes: recent psycosis Past Medical History Past Medical History Notes: Medication list and anesthesia February 2017: Methadone, oxycodone Omeprazole Simvastatin Terbinafine Lidocaine topical gel's Venlafaxine Calciferol Past Medical History Hypertension History of kidney stones History of GERD psychosis Past Surgical History Tonsillectomy Cholecystectomy Appendectomy History of ovarian cyst removal\\ C-spine fusion Smoking History Current Every Day Smoker Social History Alcohol Use: Denies alcohol use Drug Use: Denies drug use Other Social History: Local resident Ambulatory Status Independent Review of Systems Unable to Obtain ROS Patient condition, Uncooperative Constitutional: Denies: Chills, Fatigue, Fever Eyes: Denies: Blurred bilateral, Eye pain bilateral, Visual loss bilateral Ears / Nose / Throat: Denies: Ear ringing bilateral, Throat swelling GI: Reports: Nausea, Denies: Abdominal pain, Diarrhea, Vomiting Musculoskeletal: Reports: Neck pain Neurologic: Reports: Change LOC, Confusion, Headache, Denies: Dizziness, Lightheaded, Seizure, Syncope Psychiatric: Reports: Anxiety, Change mental status, Confusion, Delusional, Denies: Homicidal ideation, Suicidal ideation Complete sys rev & neg: except as marked. Physical Exam Initial Vital Signs Vital Signs (First) Date Time Temp Pulse Resp B/P Pulse Ox O2 Delivery O2 Flow Rate FiO2 04/05/17 16:10 36.9 109 14 148/86 95 Room Air Initial VS: Reviewed, Vital signs normal ENT: Mucous membranes moist, Conjunctiva normal, No scleral icterus Respiratory: Breath sounds normal, Clear to auscultation, No respiratory distress Cardiovascular: Regular rate & rhythm, Heart sounds normal, Intact distal pulses Abdomen / GI: Soft, Non-tender, No guarding, No rebound, No distention Skin: Warm, Dry, No cyanosis General/Constitutional: Awake, Alert Head / Eyes: Normocephalic, PERRL, EOMI, No nystagmus, No photophobia, Conjunctiva NL, Temporal arteries NL Tender to L paracervical msk, scalenes. Has FROM of neck. Tender L trapezious. minor tender R scalenes. no midline tenderness Neurologic: Oriented X3, CN II - XII intact Mental Status: Positive: Confused Speech: Negative: Garbled, Slow, Slurred, Stuttering does not answer most questions appropriately. is A&Ox3. ENT: Airway patent, Mucous membranes moist, Pharynx NL, No sinus tenderness Respiratory / Chest: Breath sounds NL, Breath sounds = bilat, No respiratory distress, No rales, No rhonchi, No wheezing Cardiovascular: Heart rate NL, Regular rhythm, Heart sounds NL, Peripheral circulation NL Abdomen: Soft, Non-tender, No guarding, No rebound Psychiatric: Not suicidal, Not homicidal, No hallucinations Abnormal Mood/Affect: Positive: Anxious, Inappropriate Abnormal Thinking / Perception: Positive: Confused, Judgment abnormal Interpretation & Diagnostics Lab Results Interpretation Result Diagram: 04/05/17164904/05/171649 Test 04/05/17 16:50 04/05/17 17:17 White Blood Count 10.9th/mm3 (3.8-10.1) Red Blood Count 5.01mil/mm3 (3.90-5.20) Hemoglobin 14.6g/dL (12.0-15.6) Hematocrit 42.3% (35.0-46.0) Mean Corpuscular Volume 84.4fL (81-100) Mean Corpuscular Hemoglobin 29.1pg (27.0-35.0) Mean Corpuscular Hemoglobin Concent 34.5% (32.0-37.0) Red Cell Distribution Width 14.4% (12.3-15.4) Platelet Count 327bil/L (150-400) Neutrophils (%) (Auto) 71.4% (40-74) Lymphocytes (%) (Auto) 18.7% (14-46) Monocytes (%) (Auto) 9.3% (4-12) Eosinophils (%) (Auto) 0.2% (0-5) Basophils (%) (Auto) 0.2% (0-3) Erythrocyte Sedimentation Rate 3mm/hr (0-40) Sodium Level 138mEq/L (134-144) Potassium Level 3.8mEq/L (3.5-5.2) Chloride Level 99mEq/L (97-108) Carbon Dioxide Level 24mmol/L (18-29) Blood Urea Nitrogen 10mg/dL (8-27) Creatinine 0.64mg/dL (0.57-1.00) Estimat Glomerular Filtration Rate 134mL/min (>59) Glucose Level 120mg/dL (60-99) Calcium Level 9.8mg/dL (8.5-10.1) Total Bilirubin 0.4mg/dL (0.0-1.2) Aspartate Amino Transf (AST/SGOT) 17U/L (0-50) Alanine Aminotransferase (ALT/SGPT) 13U/L (0-32) Alkaline Phosphatase 115U/L (25-165) Total Protein 6.8g/dL (6.4-8.4) Albumin 4.1g/dL (3.4-5.0) Alcohols < 10mg/dL (0-10) Urine Opiates Screen Negative Urine Methadone Screen Negative Urine Barbiturates Screen Negative Urine Amphetamines Screen Negative Urine Benzodiazepines Screen Negative Urine Cocaine Metabolite Screen Negative Urine Cannabinoids Screen Positive CT Head Interpretation PROCEDURE: CT BRAIN WITHOUT CONTRAST ([id number]) INDICATIONS: confusion, RIOS TECHNIQUE: Noncontrast 4.5 mm thick angled axial sections acquired from the foramen magnum to the vertex, with coronal reformats. COMPARISON: [facility], CT, CT BRAIN WO CON, 03/20/2017, 11:12. FINDINGS: Image quality: Excellent. CSF spaces: Basal cisterns are patent. No extra-axial fluid collections. Ventricles are normal in size and shape. Brain: No midline shift. No intracranial masses or hemorrhage. Ochoa-white matter interface is normal. Skull and face: Calvarium and visualized facial bones are intact, without suspicious lesions. Sinuses: Visualized sinuses and mastoids are clear. IMPRESSION: 1. No acute intracranial process. Re-Eval/Medical Decision Med Decision/Clinical Course Discussed case with dr Gibbons. will have SW consult, paged Jada Loco SW - pt in psycosis, not coherent. NO SI or HI, Talked to her brother on the phone who is willing to come up tomorrow to help pt with medications/life. plan to d/c home with raj. Jada states her apt manager it training has noted pt doing odd things at apt. Called patient's next of kin her brother Geovani and talked to Geovani as well as her niece, Lisa. They are concerned about Candelaria's condition, they are willing to come up tomorrow to help her sort out her health situation and help her with resources. They are not sure how much help they Will be living so far away. We will try to convince patient to be admitted to mental health unit here. Patient seems to be amenable to this.SW arranging. pt requesting nicotene patch and food. Dr Mensah in [facility] will not take pt. needs geropsyc. CHIP STARK will arrange for [facility] to [facility] for guidance on to admit or send home. . Pt continuously up and "ready to go" redirectable to bed. given blanket, awaiting [facility] 2124- discussed with Dr Gibbons, he will assume care Discharge & Departure Shift Change Sign-Out Response to Therapy: Improved Impression: Primary Impression: Acute psychosis Additional Impressions: Neck muscle strain Encounter type: initial encounter Qualified Code: S16.1XXA - Strain of muscle, fascia and tendon at neck level, initial encounter Headache Headache type: unspecified Headache chronicity pattern: acute headache Intractability: not intractable Qualified Code: R51 - Headache Discharge Condition All VS Reviewed: Yes Condition: Stable Referrals: Kenisha Rubio MD (PCP) copies to: Kenisha Rubio MD, Linnea K [facility] April 05, 2017 15:54
[2017-04-05 16:10] VITALS: BP 148/86; PULSE 109; RESP 14; O2SAT 95
[2017-04-05] MEDS ORDERED: 0.9% Sodium Chloride 1,000 ML IV ONE (16:13)
--- NOTE | 2017-04-05 16:50 | DRSVH ---
PROCEDURE: CT BRAIN WITHOUT CONTRAST ([id number]) INDICATIONS: confusion, RIOS TECHNIQUE: Noncontrast 4.5 mm thick angled axial sections acquired from the foramen magnum to the vertex, with c oronal reformats. COMPARISON: [facility], CT, CT BRAIN WO CON, 03/20/2017, 11:12. FINDINGS: Image quality: Excellent. CSF spaces: Basal cisterns are patent. No extra-axial fluid collections. Ventricles are normal in size and shape. Brain: No midline shift. No intracranial masses or hemorrhage. Ochoa-white matter interface is norm al. Skull and face: Calvarium and visualized facial bones are intact, without suspicious lesions. Sinuses: Visualized sinuses and mastoids are clear. IMPRESSION: 1. No acute intracranial process. Dictated by: Carmen Lanier M.D. on 04/05/2017 at 16:48 Approved by: Carmen Lanier M.D. on 04/05/2017 at 16:49
[2017-04-05 17:07] LABS: BASOPHILS % (AUTO) 0.2 % (0-3); EOSINOPHILS % (AUTO) 0.2 % (0-5); MONOCYTES % (AUTO) 9.3 % (4-12); Mean Corpuscular Hemoglobin 29.1 pg (27.0-35.0); Mean Corpuscular Volume 84.4 fL (81-100); NEUTROPHILS % (AUTO) 71.4 % (40-74); Platelet Count 327 bil/L (150-400)
[2017-04-05 17:27] LABS: ERYTHROCYTE SEDIMENTATION RATE 3 mm/hr (0-40)
[2017-04-05] MEDS ORDERED: Lidocaine 4% 50 mL Topical Solution TOPICAL ONE (19:03)
[2017-04-06 01:40] VITALS: BP 100/60; PULSE 87; RESP 20; O2SAT 97
[2017-04-06 06:26] VITALS: BP 116/66; PULSE 80; RESP 14; O2SAT 98
[2017-04-06 06:39] VITALS: BP 126/83; PULSE 78; RESP 18; O2SAT 98
[2017-04-06] MEDS ORDERED: Pantoprazole 20 mg ER24 Tablet PO ONE (07:15)
[2017-04-06] MEDS ORDERED: LORazepam 2 mg Tablet PO ONE (08:50)
[2017-04-06 11:11] VITALS: BP 119/76; PULSE 81; RESP 14; O2SAT 99
[2017-04-06] MEDS ORDERED: LORazepam 1 mg Tablet PO ONE (14:25)
[2017-04-06] MEDS ORDERED: Benzocaine-Menthol Lozenge 2/Pkg PO PRN (15:45)
[2017-04-06] MEDS ORDERED: Magnesium Hydroxide 10 mL Oral Concentration PO PRN (15:45)
--- NOTE | 2017-04-06 18:12 | NUR ---
Nursing Note Admission S/O: Pt arrived from [facility] ER at 1440 per W/C. Pt detained as gravely disabled on a 72 hour hold at 0001 this morning. Pt brought into ED for bizarre behavior. Pt's brother has been getting phone calls from her director of property management & would like her evaluated for psychiatric hospitalization. He worries she will get hurt by yelling at other residents at her apartment complex. Pt positive for THC. Pt at first appears cooperative, but has had negative interactions with peers. Another pt reports this pt called her a "jayashree." When questioned, pt stated, "That's not what I said. I asked her what she wanted to be called, then asked I couldn't call her 'that word' [johnger]....How should I talk to her?....I wouldn't have one of those on my [employer] [place]. I wouldn't hire them." Pt has refused to sign paperwork because she didn't have her glasses. Glasses not brought up from ED. ED called to inquire if her glasses were downstairs. Pt offered unit reading glasses. Pt refused & said, "I want my own." Pt states she has pain in her legs & genital area. She rated her pain at a "5" on a scale of 1-10/10 the worst. Tylenol or ibuprofen offered. Pt became indignant & said, "Those don't work." Pt would not give a PCP name. She states her last physician was Dr. Rubio. Explained that we needed to verify medications. Pt stated, "I need to go to the bathroom now." Pt's brother to see her. Pt stated, "If my brother sees me without my earrings & purse, he's going to know somethings wrong....Well you better go get them." A: Pt is easily agitated & is unable to manage her behavior in an appropriate manner. P: Provide supportive environment. Set appropriate limits. Monitor medications & effects.
--- NOTE | 2017-04-06 19:06 | NUR ---
Obs Dayshift Pt is irritable, demanding, entitled, intrusive w/ peers, and often needing redirection from staff. Pt is upset at being here because she can't have her belongings, makeup, mirrors, purse, etc. Pt is pressured and delusional, talking to peers and visitor about being hacked, and someone using her brothers phone to text her but it wasn't her brother. Pt stated that we wanted her here and that she is to help us w/ patients. Tangential, disorganized, delusional. Pt has many requests, up at RN station often attempting to order things for her and peers. Good ADL's, Good meals
[2017-04-06] MEDS: LORazepam 1 mg Tablet PO PRN (20:08)
[2017-04-07] MEDS: LORazepam 1 mg Tablet PO PRN (04:17)
--- NOTE | 2017-04-07 06:39 | NUR ---
Sleep 11p-7a Pt slept from 5349-6553. She awoke confused, demanding and needing frequent redirection. She was demanding something for pain. Pt given Tylenol 650mg po, Ativan 1mg po and Ambien 5mg po all given @ 0417 with good effect. Pt fell back asleep by 0445. Total sleep 8 hours.
[2017-04-07] MEDS: ARIPiprazole 10 mg Tablet PO SCH (12:10)
--- NOTE | 2017-04-07 13:01 | NUR ---
Obs Dayshift Pt is confused, irritable, demanding, not tracking well in conversations. Antagonistic toward peers and staff, disorganized and forgetful. Going into other rooms, forgetting where her room is, trying to go into meeting rooms looking for her bathroom. Pt is stating that she is constantly being lied to, that she has been here for days so she should be released tomorrow and that she needs to see the DR immediately. Tangential, rambling. States that she is in pain and needs "real pain meds". Often needing staff redirection and not always appropriate for group settings, restless, interrupting others, etc. Ok ADL's, Good meals
[2017-04-07] MEDS: oxyCODONE-Acetamin 5-325 mg Tablet PO PRN (14:42)
--- NOTE | 2017-04-07 15:30 | HP ---
[address] [address] HISTORY AND PHYSICAL PATIENT: ERIKA PONCE : 1950 MR#: [id number] ADMIT: 04/06/2017 JOB ID: [id number] IDENTIFICATION: The patient is a 66-year-old single, white female. She lives independently. Her brother Geovani Bradley ([phone]) is a good support but lives out of town. She lives in an apartment complex in [place]. REASON FOR ADMISSION: Client to the ED complaining of head, neck and back pain and that she had not had her narcotics for over six weeks. She was incoherent and disorganized in thought to the point of psychosis and she was admitted to our unit for stabilization and care. HISTORY OF PRESENT ILLNESS: The patient presents today for evaluation and treatment of thought disorganization, paranoia and agitation. I met with her for a 60 minute evaluation and reviewed course and records kept by [facility]. I had initially consulted with the patient when she was on the medical service for a similar presentation on March 20, 2017. Please refer to my consultation report. The client's main issue is declining cognitive function compounded by continued use of marijuana, cigarettes, alcohol and narcotics for pain when she can get them. She is also very socially isolated. The condition has been developing over the past six months and it at present is of a severe intensity manifesting with symptoms of paranoid thought, poor impulse control, poor insight, poor judgment and high irritability causing her to act bizarrely, yelling at neighbors. All the above are made worse by poor sleep, by continued use of cannabis and social isolation. It is all improved by active adult engagement, clean living and good sleep. At present, she is presenting with signs of marked emotional liability with anger, moderate cognitive deficits and severe impairment in judgment, insight, reality testing and coping. PHYSICAL REVIEW OF SYSTEMS: Consistent for constitution feeling poorly and musculoskeletal describing mid back pain. PAST MEDICAL HISTORY: MEDICATIONS: 1. Abilify 10 mg q. a.m. 2. Melatonin 5 mg h.s. ALLERGIES: XANAX or WELLBUTRIN. PAST MEDICAL HISTORY: 1. Hypertension. 2. History of kidney stones. 3. History of gastroesophageal reflux disease. FAMILY MEDICAL HISTORY: Noncontributory. PAST PSYCHIATRIC HISTORY: Client denies. PSYCHOSOCIAL HISTORY: Born and raised in the [facility]. She attended [employer]. 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 History of trauma "slots." Client was vague and could not be specific. DRUG AND ALCOHOL: Client use: Client denies. She reports smoking half a pack of cigarettes per day. Her urine tox is positive for THC. SUICIDAL IDEATION, SUICIDE ATTEMPTS: None. RELATIONSHIP HISTORY: for two years at age 33. No children. JEHOVAH'S WITNESS: None. LEGAL HISTORY: Client denies. PHYSICAL EXAMINATION: Reviewed from the ED and essentially normal. LABORATORY: CBC, liver, electrolytes all normal. UDS positive for THC. MENTAL STATUS: Client neatly and stylishly dressed. She was happy to see me and spoke in a clear and articulate manner. She was cooperative and pleasant with me, but there was an underlying tone of hostility, defiance and opposition towards anyone that inhibits what she wants or disagrees with her. Her mood was irritable. Her affect was congruent with high intensity but no emotional lability. Thought process: Client unable to relate a coherent history. She did not appear to be responding to internal stimuli but had a very concrete thought process. Thought content: Significant for numerous paranoid themes. She denied suicidal ideation or auditory hallucinations. Alert and oriented to person, place and date. Immediate, short, and long-term memory were all mildly impaired. Attention and concentration moderately impaired. Insight and judgment severely impaired. Impulse control highly contained, yet rigid. Is unable to contain impulses of anger. Reality testing is moderately impaired. Having a difficult time distinguishing between thoughts of fear and certainty of paranoid plots. Competence to handle current stressors is currently being overwhelmed. 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 Now she is quite isolated in her apartment. She has chronic neck and back pain and had been on a combination of oxycodone and methadone. She is not received this for the past 6 weeks. I initially was consulted to see her several weeks ago on the medical service where she was there for over a week in late February and early March for similar presentation. At that time it appeared that the confusion and paranoia were a result of overusing methadone and oxycodone. Since that time, she reports not having any narcotics for the past six weeks but presents with a similar presentation. I am concerned that she has a declining cognitive function that is exacerbated by smoking up to a pack of cigarettes a day and using daily marijuana. She is quite disorganized in her thought process and it is coming out behaviorally as irritability and difficulty in controlling her impulses. For example, she is yelling at neighbors. When she initially came up on the unit, she got in the personal space of another client and called this patient a "nigger." This is an example of the poor impulse control, insight and judgment that I am describing. Client has a very supportive brother in [place] but he lives in [place]. I am concerned that the patient will need more care than she is receiving through independent living. Some concern that she may be in early stages of a neurocognitive disorder. DIAGNOSIS: AXIS I 1. 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 2. Rule out major depressive disorder with psychosis. 3. Rule out neurocognitive disorder, unspecified. AXIS II Defer. AXIS III 1. Low back pain. 2. Recent narcotic addiction. AXIS IV Unknown. AXIS V Current global assessment of functioning equal to 30. PLAN: Recommend client be admitted to our unit to be provided with a high degree of safety through the structure and active adult engagement she will receive here. Will have her participate in the one-to-one unit and group activities focused on improving coping skills, reality based thinking and restoring her cognitive function. Would recommend client start on a combination of Abilify 10 mg in the morning and Seroquel 50 mg at night. Will try to get her connected with a pain clinic. For the time being, will prescribe oxycodone 5/325 q.4 hours for acute severe pain. Client is on a 72 hour involuntary treatment hold and will get time to talk with the chain hoist operator and her american history teacher before court on Wednesday. Anticipate a 5-7 day stay. BREANA
--- NOTE | 2017-04-07 18:13 | NUR ---
Leesa Stinson Nursing Notes [id number] S. I will only tell you about it if you promise to tell me truth and you must admit that you stole it even if you didnt know you did. I need every body to be quiet-I cannot concentrate to read this with everyone talking! O. Patient keeps referring to nurse as María, even with frequent references to name lina. In preparation for court, patient changed from scrubs into her nightgown. Patient requesting HS meds at 1800, then her brother came to visit. A. Tangential, pressured speech, intrusive, disorganized, delusional and irritable. P. Continue to monitor for response to treatment. Q 15 min checks for safety. Follow plan of care. Addendum: 04/07/17 at 1813 by TYLOR GARCIA RN PRNs Percocet 1 tab @1442 for pain 6/10. Not effective, pain not reduced. Motrin 600mg for pain 6/10. Not effective-per patient.
[2017-04-07 18:34] VITALS: BP 111/81; PULSE 90
[2017-04-08] MEDS: LORazepam 1 mg Tablet PO PRN ×2 (01:51→13:17)
--- NOTE | 2017-04-08 03:57 | NUR ---
Nursing Noc Pt awoke this in the middle of the night with c/o discomfort and requested something for pain and sleep. Pt was not hostile to development writer or other staff this shift. Directable and cooperative. Appeared confused after interaction but walked around unit then back to her room to sleep. Continuing to monitor mood, behavior and emotional state. Q15 minute safety checks performed as ordered. [facility] Addendum: 04/08/17 at 0556 by ANDREA SOLANO RN Patient reports the sleep medicine was great and she would like a tree month supply. Also c/o uncontrolled back pain and "that is the only reason I'm here".
[2017-04-08] MEDS: oxyCODONE-Acetamin 5-325 mg Tablet PO PRN ×3 (05:59→17:01)
[2017-04-08 07:45] VITALS: BP 148/94; PULSE 110; RESP 20
[2017-04-08] MEDS: Pantoprazole 20 mg ER24 Tablet PO SCH (08:08)
[2017-04-08] MEDS: ARIPiprazole 10 mg Tablet PO SCH (08:08)
--- NOTE | 2017-04-08 12:41 | PCM.PNPSY ---
Subjective Date of Service April 08, 2017 Subjective I spent 30 minutes both reviewing treatment plan with clinical team, interviewing the patient and providing supportive/educational psychotherapy. I spent more than 50% of the time counseling the patient. I reviewed the treatment plan with the patient and discussed options available including the potential risks, benefits and side effects. Leesa reports good thought organization and mood stability but that she is furious about her ex- David. She stated somebody breached a bank in [place]. She states she is about to be a chito-millionaire. This was all nonsensical to me. She was last and had contact with David 35 years ago per her report. Staff reports that she has been irritable hyperactive and "not able to play well with others ". They report she is has bizarre interactions with disinhibited behavior is not easily contained or redirected and has high entitlement. She is requiring a lot of staff interaction to maintain safety between she and other patients. She has refrained from racial slurs. She slept 8 hours . Mini-Mental Status exam 26 out of 30. She denies medication side effects. Current Medications Current Medications Acetaminophen 650 mg Q4H PRN PO Last administered on 04/07/17 04:16; Admin Dose 650 MG; Start 04/06/17 at 15:45 Aripiprazole 10 mg DAILY PO Last administered on 04/08/17 08:08; Admin Dose 10 MG; Start 04/07/17 at 11:55 Atorvastatin Calcium 20 mg DAILY PO Last administered on 04/08/17 08:08; Admin Dose 20 MG; Start 04/08/17 at 08:30 Cholecalciferol 1,000 unit DAILY PO Last administered on 04/08/17 08:08; Admin Dose 1,000 UNIT; Start 04/08/17 at 08:30 Ibuprofen 600 mg Q6H PRN PO Last administered on 04/07/17 16:12; Admin Dose 600 MG; Start 04/06/17 at 15:45 Lorazepam 1 mg ONCE ONCE PO Last administered on 04/06/17 14:26; Admin Dose 1 MG; Start 04/06/17 at 14:25; Stop 04/06/17 at 14:26; Status DC Lorazepam 1 mg Q4H PRN PO Last administered on 04/08/17 01:51; Admin Dose 1 MG ; Start 04/06/17 at 15:45 Melatonin 5 mg HS PO Last administered on 04/07/17 20:14; Admin Dose 5 MG; Start 04/07/17 at 21:00 Nicotine 1 patch DAILY TOPICAL Last administered on 04/08/17 08:09; Admin Dose 1 PATCH; Start 04/07/17 at 11:55 Oxycodone/ Acetaminophen 1 tab Q4H PRN PO Last administered on 04/08/17 10:58 ; Admin Dose 1 TAB; Start 04/07/17 at 11:55 Pantoprazole 20 mg DAILY PO Last administered on 04/08/17 08:08; Admin Dose 20 MG; Start 04/08/17 at 08:30 Quetiapine Fumarate 50 mg HS PO Last administered on 04/07/17 20:14; Admin Dose 50 MG; Start 04/07/17 at 21:00 Quetiapine Fumarate 100 mg HS PO Last administered on 04/06/17 20:08; Admin Dose 100 MG; Start 04/06/17 at 21:00; Stop 04/07/17 at 14:00; Status DC Zolpidem Tartrate Start with 5 mg and may rep... HS PRN PO Last administered on 04/08/17 01:58; Admin Dose 5 MG; Start 04/06/17 at 15:45 Mental Status Exam Vital Signs Vital Signs Date Time Temp Pulse Resp B/P Pulse Ox O2 Delivery O2 Flow Rate FiO2 04/08/17 07:45 36.6 110 20 148/94 Appearance: Neat/well groomed Attitude: Guarded, Hostile/Threatening Behavior: Distractible Affect: Labile Mood: Expansive, Irritable Thought Process/Associations: Tangential Speech Production: Normal Speech Rate: Pressured Speech Articulation: Normal Thought Content: Suspicious, Perseveration Danger to Self/Suicidal Ideati: None Delusions: Paranoid, Grandiose Consciousness: Hyper-vigilant Orientation: Person, Place, Date, Situation Memory: Grossly Intact Estimate Intellectual Function: Average Basis for IQ estimate: Awareness current events, Word use/vocabulary, Educational history, Employment history Attention/Concentration & Cogn: Impaired Cognitive Testing Method: Abstract Reasoning during interview, Other (MMSE 26/ 30) Insight: Limited Judgement: Limited Result Diagram: 04/05/17164904/05/171649 Mental Health Plan The patient is a 66-year-old white female, who had been living independently and 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 Now she is quite isolated in her apartment. I initially was consulted on the medical service where she was there for over a week in late February and early March for similar presentation. At that time it appeared that the confusion and paranoia were a result of high doses of methadone and oxycodone. Since that time, she reports not having any for the past six weeks and presents with a similar presentation. I am concerned that she has a declining cognitive functioning that is exacerbated by smoking up to a pack of cigarettes a day and using marijuana. She is becoming quite disorganized in her thought process and it is coming out as irritability and difficulty in controlling her impulses. For example, she is yelling at neighbors. When she initially came up on the unit, she got in the personal space of another client and called this patient a "nigger." This is an example of the poor impulse control, insight and judgment that I am describing. Client has a very supportive brother in [place] but he lives in [place]. I am concerned that the patient will need more care than she is receiving through independent living. Some concern that she may be in early stages of a neurocognitive disorder. [place] AXIS I 1. 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 2. Rule out major depressive disorder with psychosis. 3. Rule out neurocognitive disorder, unspecified. AXIS II Defer. AXIS III 1. Low back pain. 2. Recent narcotic addiction. AXIS IV Unknown. AXIS V Current global assessment of functioning equal to 30. Medications Treatments Patient is being provided with a high degree of safety through the structure and active adult engagement. We will focus on developing improved coping skills and identifying stressors that may have led to current episode. We will attempt to: Integrate into therapeutic groups, milieu and individual therapy. Maintain in a closely monitored and structured unit Provide low-stimulation environment Obtain collateral data to assist in treatment planning Assess degree of lability of affect and impulse control Complete safety plan Decrease frequency of relapse and need for re-hospitalization Denies thoughts of harm to self and/or others Establish a consistent sleep pattern Medication effective in stabilization of mood and/or thought process Reduce the risk of imminent harm to self and/or others by providing a safe environment Tolerates medication without side effects Patient will be on the following psychiatric medications: Seroquel 50 at bedtime Abilify 10 every morning Oxycodone 535s one tab every 4 hours when necessary pain Melatonin 5 mg at bedtime Education: Educate patient about recreational drug use as an etiology Educate about metabolic etiologies related to obesity Address patient's legal status Patient is on a 72 hour involuntary treatment hold. Patient will be given the opportunity to talk to her grinding machine operator portable and the bulk cooler installer Wednesday Disposition: Home Pranav Raza MD April 08, 2017 12:41
--- NOTE | 2017-04-08 16:29 | NUR ---
Nursing Note [id number] S. "I don't want to , but if I have to go, I want to go quick with just one shot-right here (patient indicating orthodox with finger), but it only maters in [place]". O. Patient more irritable, suspicious, somewhat demanding at times, reporting increased pain and anxiety. A. Patient continues to be disorganized, tangential, and intrusive at times. P. Monitor for response to treatment. Q 15 min checks for safety. Follow plan of care. Addendum: 04/08/17 at 1629 by TYLOR GARCIA RN PRNs Percocet 1 tab for pain 04/24 @ 1058. Not effective, pain 04/24. Ativan 1 mg po @ 1317 for anxiety-patient unable to rate.
--- NOTE | 2017-04-08 17:27 | NUR ---
Percocet at 1701 for pain 05/24.
--- NOTE | 2017-04-08 22:48 | NUR ---
nursing note evening S)"this year is going to prove it" "I am coming into lots of money" O) pt rambles and is intrusive at times, had visit with that seemed to go well, dressed in multiple layers of clothing with scrub top on backwards over layers, took medications and went to bed early A)cooperative, rambles, intrusive P) monitor medication effectiveness
--- NOTE | 2017-04-09 04:42 | NUR ---
nursing, nights, 11-7 s- can i have something for sleep? not to strong. thank you. can i have the remote? i'd like some coffee. oh. o- asleep at 2200. asked for and received 5 mg of ambien at 0135. slept from 0145 to 0350. currently socializing with a peer in the dinning room. assessed q 15 minutes. a- interrupted sleep, generally appropriate, no apparent distress. p- monitor behavior/emotional state, quality, times and amount of sleep, use and effect of medication. david
[2017-04-09] MEDS: Pantoprazole 20 mg ER24 Tablet PO SCH (07:49)
[2017-04-09] MEDS: ARIPiprazole 10 mg Tablet PO SCH (07:49)
[2017-04-09] MEDS: oxyCODONE-Acetamin 5-325 mg Tablet PO PRN ×3 (07:55→18:01)
[2017-04-09 10:28] VITALS: BP 110/78; PULSE 88; RESP 16
--- NOTE | 2017-04-09 11:26 | PCM.PNPSY ---
Subjective Date of Service April 09, 2017 Subjective I spent 30 minutes both reviewing treatment plan with clinical team, interviewing the patient and providing supportive/educational psychotherapy. I spent more than 50% of the time counseling the patient. I reviewed the treatment plan with the patient and discussed options available including the potential risks, benefits and side effects. Leesa reports good thought organization and mood stability but that she is presenting as disorganized in thought, highly emotionally labile, and difficult to redirect requiring a lot of reassurance. She stated somebody breached a bank in [place] for [employer]. She states she is about to be a chito-millionaire. This was all nonsensical to me. Staff reports that she has been irritable hyperactive and "not able to play well with others ". They report she is has bizarre interactions with disinhibited behavior is not easily contained or redirected and has high entitlement. She is requiring a lot of staff interaction to maintain safety between she and other patients. She has refrained from racial slurs. She slept 8 hours . She denies medication side effects. Current Medications Current Medications Aripiprazole 10 mg DAILY PO Last administered on 04/09/17 07:49; Admin Dose 10 MG; Start 04/07/17 at 11:55 Atorvastatin Calcium 20 mg DAILY PO Last administered on 04/09/17 07:55; Admin Dose 20 MG; Start 04/08/17 at 08:30 Cholecalciferol 1,000 unit DAILY PO Last administered on 04/09/17 07:49; Admin Dose 1,000 UNIT; Start 04/08/17 at 08:30 Gabapentin 300 mg TID PO Last administered on 04/09/17 07:49; Admin Dose 300 MG ; Start 04/08/17 at 20:30 Melatonin 5 mg HS PO Last administered on 04/08/17 19:40; Admin Dose 5 MG; Start 04/07/17 at 21:00 Nicotine 1 patch DAILY TOPICAL Last administered on 04/09/17 07:55; Admin Dose 1 PATCH; Start 04/07/17 at 11:55 Oxycodone/ Acetaminophen 1 tab Q4H PRN PO Last administered on 04/09/17 07:55 ; Admin Dose 1 TAB; Start 04/07/17 at 11:55 Pantoprazole 20 mg DAILY PO Last administered on 04/09/17 07:49; Admin Dose 20 MG; Start 04/08/17 at 08:30 Quetiapine Fumarate 50 mg HS PO Last administered on 04/08/17t 19:40; Admin Dose 50 MG; Start 04/07/17 at 21:00 Mental Status Exam Vital Signs Vital Signs Date Time Temp Pulse Resp B/P Pulse Ox O2 Delivery O2 Flow Rate FiO2 04/09/17 10:28 36.7 88 16 110/78 Appearance: Neat/well groomed Attitude: Guarded, Hostile/Threatening Behavior: Distractible Affect: Labile Mood: Expansive, Irritable Thought Process/Associations: Tangential Speech Production: Normal Speech Rate: Pressured Speech Articulation: Normal Thought Content: Suspicious, Perseveration Danger to Self/Suicidal Ideati: None Delusions: Paranoid, Grandiose Consciousness: Hyper-vigilant Orientation: Person, Place, Date, Situation Memory: Grossly Intact Estimate Intellectual Function: Average Basis for IQ estimate: Awareness current events, Word use/vocabulary, Educational history, Employment history Attention/Concentration & Cogn: Impaired Cognitive Testing Method: Abstract Reasoning during interview, Other (MMSE 26/ 30) Insight: Limited Judgement: Limited Result Diagram: 04/05/17164904/05/171649 Mental Health Plan The patient is a 66-year-old white female, who had been living independently and 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 Now she is quite isolated in her apartment. I initially was consulted on the medical service where she was there for over a week in late February and early March for similar presentation. At that time it appeared that the confusion and paranoia were a result of high doses of methadone and oxycodone. Since that time, she reports not having any for the past six weeks and presents with a similar presentation. I am concerned that she has a declining cognitive functioning that is exacerbated by smoking up to a pack of cigarettes a day and using marijuana. She is becoming quite disorganized in her thought process and it is coming out as irritability and difficulty in controlling her impulses. For example, she is yelling at neighbors. When she initially came up on the unit, she got in the personal space of another client and called this patient a "nigger." This is an example of the poor impulse control, insight and judgment that I am describing. Client has a very supportive brother in [place] but he lives in [place]. I am concerned that the patient will need more care than she is receiving through independent living. Some concern that she may be in early stages of a neurocognitive disorder. I testified in court today with Leesa present. She was requesting to be discharged And after hearing testimony the local tanker truck driver granted a 14 day MR. [place] AXIS I 1. 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 2. Rule out major depressive disorder with psychosis. 3. Rule out neurocognitive disorder, unspecified. AXIS II Defer. AXIS III 1. Low back pain. 2. Recent narcotic addiction. AXIS IV Unknown. AXIS V Current global assessment of functioning equal to 30. Medications Treatments Patient is being provided with a high degree of safety through the structure and active adult engagement. We will focus on developing improved coping skills and identifying stressors that may have led to current episode. We will attempt to: Integrate into therapeutic groups, milieu and individual therapy. Maintain in a closely monitored and structured unit Provide low-stimulation environment Obtain collateral data to assist in treatment planning Assess degree of lability of affect and impulse control Complete safety plan Decrease frequency of relapse and need for re-hospitalization Denies thoughts of harm to self and/or others Establish a consistent sleep pattern Medication effective in stabilization of mood and/or thought process Reduce the risk of imminent harm to self and/or others by providing a safe environment Tolerates medication without side effects Patient will be on the following psychiatric medications: Seroquel 50 at bedtime Abilify 10 every morning Oxycodone 535s one tab every 4 hours when necessary pain Melatonin 5 mg at bedtime Education: Educate patient about recreational drug use as an etiology Educate about metabolic etiologies related to obesity Address patient's legal status Patient is on a 14 day involuntary treatment hold initiated 04/09/2017. Disposition: Home or assisted care depending on how the client's condition stabilizes Pranav Smiley MD April 09, 2017 11:26
--- NOTE | 2017-04-09 14:36 | NUR ---
Nursing Notes [id number] S. I just need to know what is true, because I dont want to use the fake stuff, only what is right. O. Patient thinking it is dinner time and her brother will be here to visit soon, even though she just completed lunch. Denies depression, SI/HI or thoughts of self-harm (patient does reports bouts of anger r/t other patient on the unit or reports anxiety 5/10, and on-going pain in back and groin. Patient less anxious/irritable after lunch. A. Patient remains pressured, hyper-verbal, and intrusive with poor insight. P. Monitor for response to treatment. Follow plan of care. Addendum: 04/09/17 at 1436 by TYLOR GARCIA RN PRJitendra Percocet 1 tab for pain 02/22 @ 0755. Not effective, no change. Percocet 1 tab for pain 06/24 @ 1259. Minimally effective, pain reduced to 6/10.
--- NOTE | 2017-04-09 16:10 | NUR ---
Observations 0700 - 1900 Pt was labile, confused, entitled, intrusive with peers and loud at times. Pt speech was rambling and eye contact was good. Pt is polite at times and rude other times. Pt was cooperative maintained behavior control throughout the shift for the most part. Pt required some staff redirection due to being loud, topic of conversation and agitation. Pt attended community meeting and set a daily goal. Pt rated her mood 5/10, with 10 being the best. Pt group briefly. Pt attended meals in [employer] and ate about 75% of meals. Pt ate snack. Pt was observed every 15 minutes throughout the shift as ordered.
[2017-04-09] MEDS: LORazepam 1 mg Tablet PO PRN (16:21)
--- NOTE | 2017-04-09 19:09 | NUR ---
patient accounts manager/Counselor: S: "If you go on vacation, let me know so I will know why you are not here." O: Patient slept 5.5 hours last night per staff. Patient denies S/I and H/I. She also denies auditory and visual hallucinations. Depression is 0/10 and anxiety is 0/10. When asked her mood, patient stated, "The best that it can get." Patient then started rambling about various topics including, "My brother coming here today is close enough to my mother's birthday and I signed the paperwork." A: Patient is cooperative, unkept, disheveled, guarded, restricted affect, dysthymic, endorses telepathy, limited insight, limited judgment. P: Follow care plan, coordinate with out-patient providers.
[2017-04-10] MEDS: LORazepam 1 mg Tablet PO PRN ×2 (04:21→16:48)
--- NOTE | 2017-04-10 06:02 | NUR ---
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 Patient awake at 0200, requesting medication to help her get back to sleep and "be normal" Patient received Ambien 5 mg at 0209 and retired back to bed. Patient only slept until 414 and again awake concerned she was "not normal" and she should be sleeping. Speech is pressured. Patient received Ativan 1 mg po at 0420, but has been unable to get back to sleep. Patient up early in dining room, social with other female peers. Continues with fragmented sleep.
[2017-04-10] MEDS: ARIPiprazole 10 mg Tablet PO SCH (08:00)
[2017-04-10] MEDS: Pantoprazole 20 mg ER24 Tablet PO SCH (08:00)
[2017-04-10 08:44] VITALS: BP 129/92; PULSE 90; RESP 18
[2017-04-10] MEDS: oxyCODONE-Acetamin 5-325 mg Tablet PO PRN ×3 (10:13→20:11)
--- NOTE | 2017-04-10 18:05 | NUR ---
Observations [id number] Pt was awake on unit during start of shift. Pt stated early in the day that "I'm going to stay positive, and walk away from anyone who tries to bring me down." Pt very focused on trying to maintain calm around other patients. She mentioned to this fiction and nonfiction writer prose that other patients were trying to "get her attention- it's not going to happen." Pt changed clothing a few times during the day. She participated in groups, going outside on the patio as well as attending art group. Stated that she'd like to make something for her ex who "is dying." Pt proceeded to be very cryptic in her language, stating that "only those who need to know will know what is actually happening. Only I can save him." Pt became agitate a few times during the day with other patients but was able to maintain composure. Pt became upset in the evening regarding her cell phone that was not with her belongings, and getting contact numbers out of it. Pt ate 100% of meals, and was observed every 15 minutes of shift as directed.
--- NOTE | 2017-04-10 18:27 | NUR ---
Nursing Dayshift: S: "[place]." O: Patient discussing past husbands and relatives this afternoon. Has been social with peers and staff. Has been getting along with peers today. No arguments noted. Eating well at meals. Med compliant. Has received Percocet 1 tab twice today for increase in back pain at 1013 and 1514 both with effectiveness per patient. C/O anxiety and received Ativan 1 mg at 1648 without effectiveness and received hydroxyzine at 1830. Denies anxiety, depression, harmful thoughts and hallucinations. A: Talkative. Social. Calmer. P: CPOC. Monitor mood and behavior.
[2017-04-10] MEDS: hydrOXYzine Pamoate 25 mg Capsule PO PRN (18:30)
--- NOTE | 2017-04-10 23:53 | PCM.PNPSY ---
Subjective Date of Service April 10, 2017 Subjective The patient reported that "I am Leesa Elder, that's my maiden name. I inherited from being a New Year's Baby. There should be $5,000 or more." The patient was more reality focused, stating that she had previously felt unsafe in her home, but is now coming to realize that it may be the safest place for her. She is requiring less reassurance and interacted appropriately with staff and peers today. No side effects reported. Sleep: 7 hours, "enough" Appetite: "perfect" Suicidal and homicidal ideation: denies Auditory hallucinations: denies Visual hallucinations: denies Other Psychotic Symptoms: as above Anxiety: 1-2 Depression: "always happy" Mental Status Exam Appearance: Neat/well groomed Attitude: Cooperative, Guarded Behavior: Distractible Affect: Labile Mood: Expansive Thought Process/Associations: Tangential Speech Production: Normal Speech Rate: Pressured (mild) Speech Articulation: Normal Thought Content: Suspicious, Perseveration Danger to Self/Suicidal Ideati: None Danger to Others: None Delusions: Paranoid, Grandiose Hallucinations: Auditory (Denies), Visual (Denies) Consciousness: Alert Orientation: Person, Place, Date, Situation Memory: Grossly Intact Estimate Intellectual Function: Average Basis for IQ estimate: Awareness current events, Word use/vocabulary, Educational history, Employment history Attention/Concentration & Cogn: Impaired Cognitive Testing Method: Abstract Reasoning during interview, Other (MMSE 26/ 30 on admission) Insight: Limited Judgement: Limited Result Diagram: 04/05/17 1650 04/05/17 1650 Mental Health Plan The patient is a 66-year-old white female, who had been living independently and 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 Now she is quite isolated in her apartment. Dr. Raza was consulted on the medical service where she was there for over a week in late February and early March for similar presentation. At that time it appeared that the confusion and paranoia were a result of high doses of methadone and oxycodone. Since that time, she reports not having any for the past six weeks and presents with a similar presentation with a declining cognitive functioning. The patient has poor impulse control, yelling at neighbors and using racial slurs with peers. The patient reported having a supportive brother, Geovani, in [place]. The patient has made improvements, but is still experiencing some thought disorganization and grandiosity. [place] AXIS I 1. Psychotic disorder unspecified 2. Mood disorder unspecified vs. bipolar disorder, mixed, with psychotic features 3. Rule out neurocognitive disorder, unspecified. AXIS II Defer. AXIS III 1. Low back pain. 2. Recent narcotic addiction. AXIS IV Unknown. AXIS V Current global assessment of functioning equal to 30. Medications Psychiatric Medications: Aripiprazole 10mg po daily Quetiapine 50mg at bedtime Vitamine D3 1000units daily Treatments 1. The patient is admitted to the inpatient unit and will be provided a safe and secure environment. 2. The patient is denying current active suicidality and is not in need of a one-to-one at this time. 3. The patient is encouraged to participate with group and milieu activities. 4. The patient will be seen by the treatment team on a daily basis to assess symptoms, side effects and response to treatment. 5. Consider increasing aripiprazole or adding a mood stabilizer which may also improve cognition 6. Consider discontinuing Seroquel 50 at bedtime 7. Patient is on a 14 day involuntary treatment hold initiated 04/09/2017. 8. Disposition: Home or assisted care depending on how the client's condition stabilizes David Harris MD April 10, 2017 23:53 Patient will be on the following psychiatric medications: Seroquel 50 at bedtime Abilify 10 every morning Oxycodone 535s one tab every 4 hours when necessary pain Melatonin 5 mg at bedtime Education: Educate patient about recreational drug use as an etiology Educate about metabolic etiologies related to obesity Address patient's legal status Patient is on a 14 day involuntary treatment hold initiated 04/09/2017. Disposition: Home or assisted care depending on how the client's condition stabilizes David Harris MD April 10, 2017 23:53
--- NOTE | 2017-04-11 01:29 | NUR ---
Nursing NOC 7p-7a PT was in day room at start of shift. Pleasant and cooperative. PT is medication compliant. PT denies any SI/HI. She is soft spoken most of the time. PT has not required ativan this shift so far. PT went to sleep early and awoke at around 0100 requesting "something to help her go back to sleep." 5mg ambien given and pt. returned to bed. PT also received 1 percocet at HS for pain. PT reports minimal relief, but fell asleep right after receiving it. Speech is not pressured. PT was socializing appropriately early in shift. Continue at this time with POC and monitor for any A/R.
[2017-04-11] MEDS: LORazepam 1 mg Tablet PO PRN (04:19)
[2017-04-11] MEDS: ARIPiprazole 10 mg Tablet PO SCH (08:00)
[2017-04-11] MEDS: Pantoprazole 20 mg ER24 Tablet PO SCH (08:00)
[2017-04-11] MEDS: oxyCODONE-Acetamin 5-325 mg Tablet PO PRN ×3 (10:07→19:12)
--- NOTE | 2017-04-11 13:51 | NUR ---
Nursing Dayshift: S: "I'd love to go outside." O: Patient invited outside by another female peer. Has been out of her room much of the shift. Interactive on approach. Fair appetite. Social with peers and staff. Smiling much of the time. Discusses "my second inheritance" and "you should have met my first ". Anxiety a / "just barely". Denies depression, harmful thoughts, and hallucinations. A: Delusional. Talkative. Pleasant. P: CPOC. Monitor mood and behavior.
[2017-04-11] MEDS: hydrOXYzine Pamoate 25 mg Capsule PO PRN (17:22)
[2017-04-11 18:22] VITALS: BP 140/96; PULSE 97; RESP 16
--- NOTE | 2017-04-11 20:07 | NUR ---
Observations 0700 - 1900 Pt was labile, entitled, intrusive with peers and manipulative. Pt speech was rambling and nonsensical at times. Pt eye contact was good. Pt is polite at times, rude and demanding other times. Pt was cooperative, maintained behavior control throughout the shift for the most part. Pt required some staff redirection due to topic of conversation with peers and agitation. Pt had to go to her room to chill out when overstimulated. Pt attended community meeting and set a daily goal. Pt rated her mood 5/10, with 10 being the best. Pt attended meals in D.R. and ate 10% of lunch and 75% of lunch and dinner. Pt ate snack. Pt watched movie with peers and was social with select peers. Pt was observed every 15 minutes throughout the shift as ordered.
--- NOTE | 2017-04-11 22:12 | PCM.PNPSY ---
Subjective Date of Service April 11, 2017 Subjective The patient reports that she is "happy today." She reports that her bowel function is more normalized of late. The patient appeared slightly less agitted today then began talking about being "New Year's Baby" and that she is awaiting a $5,000 check to be deposited on April 21, 2016 at [facility], "closest one to [facility]." No side effects reported. Sleep: 6.25 hours, "still a struggle" Appetite: "okay" Suicidal and homicidal ideation: denies Auditory hallucinations: denies Visual hallucinations: denies Other Psychotic Symptoms: as above Anxiety: 0/10 Depression: 0/10 Mental Status Exam Vital Signs Vital Signs Date Time Temp Pulse Resp B/P Pulse Ox O2 Delivery O2 Flow Rate FiO2 04/11/17 18:22 37.2 97 16 140/96 Appearance: Neat/well groomed Attitude: Pleasant, Cooperative Behavior: Distractible Affect: Other (Elevated) Mood: Expansive Thought Process/Associations: Tangential Speech Production: Normal Speech Rate: Normal Speech Articulation: Normal Thought Content: Perseveration Danger to Self/Suicidal Ideati: None Danger to Others: None Delusions: Grandiose Hallucinations: Auditory (Denies), Visual (Denies) Consciousness: Alert Orientation: Person, Place, Date, Situation Memory: Grossly Intact Estimate Intellectual Function: Average Basis for IQ estimate: Awareness current events, Word use/vocabulary, Educational history, Employment history Attention/Concentration & Cogn: Impaired Cognitive Testing Method: Abstract Reasoning during interview, Other (MMSE 26/ 30 on admission) Insight: Limited Judgement: Limited Result Diagram: 04/05/17 1650 04/05/17 1650 Mental Health Plan The patient is a 66-year-old white female, who had been living independently and 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 Now she is quite isolated in her apartment. Dr. Raza was consulted on the medical service where she was there for over a week in late February and early March for similar presentation. At that time it appeared that the confusion and paranoia were a result of high doses of methadone and oxycodone. Since that time, she reports not having any for the past six weeks and presents with a similar presentation with a declining cognitive functioning. The patient has poor impulse control, yelling at neighbors and using racial slurs with peers. The patient reported having a supportive brother, Geovani, in [place]. The patient has made improvements, but is still experiencing some thought disorganization and grandiosity, she is denying side effects to increase in aripiprazole. [place] AXIS I 1. Psychotic disorder unspecified 2. Mood disorder unspecified vs. bipolar disorder, mixed, with psychotic features 3. Rule out neurocognitive disorder, unspecified. AXIS II Defer. AXIS III 1. Low back pain. 2. Recent narcotic addiction. AXIS IV Unknown. AXIS V Current global assessment of functioning equal to 30. Medications Psychiatric Medications: Aripiprazole 15mg po daily Quetiapine 50mg at bedtime Vitamine D3 1000units daily Treatments 1. The patient is admitted to the inpatient unit and will be provided a safe and secure environment. 2. The patient is denying current active suicidality and is not in need of a one-to-one at this time. 3. The patient is encouraged to participate with group and milieu activities. 4. The patient will be seen by the treatment team on a daily basis to assess symptoms, side effects and response to treatment. 5. Consider titrating aripiprazole or adding a mood stabilizer which may also improve cognition 6. Consider discontinuing Seroquel 50 at bedtime 7. Patient is on a 14 day involuntary treatment hold initiated 04/09/2017. 8. Disposition: Home or assisted care depending on how the client's condition stabilizes David Garrett MD April 11, 2017 22:12
--- NOTE | 2017-04-12 05:01 | NUR ---
Nursing note: second shift supervisor Patient observed asleep at start of shift, then awake at 0045 complained of unable to return to sleep "I just want to be normal" Patient received Ambien 5 mg po at 0049 and returned to bed. Patient appears to be sleeping on subsequent safety checks during the night. Patient awake early and up to BR at 0500.
[2017-04-12] MEDS: Pantoprazole 20 mg ER24 Tablet PO SCH (05:39)
[2017-04-12] MEDS: oxyCODONE-Acetamin 5-325 mg Tablet PO PRN ×3 (08:30→21:04)
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
[2017-04-12 17:29] VITALS: BP 139/139; PULSE 82; RESP 16
--- NOTE | 2017-04-12 18:48 | PCM.PNPSY ---
Subjective Date of Service April 12, 2017 Subjective The patient was rather rambling and disorganized today. She stated, "I already drank too much chamomile tea." She then went on to talk about the New Year's Day Baby money owed to her. She had started talking about what sounded like horseradish but may have actually been "horse ranch "and stated "the well wasn' t big enough for all the horses and animals. The house was too small. I promised to see Jack. I am not going to change my mind about any dollar bill. [address] ring a gonzales?" She denied side effects to increase in aripiprazole. Sleep: 6.5 hours, "REMs" Appetite: "Almost too good Suicidal and homicidal ideation: Denies Auditory hallucinations: Denies Visual hallucinations: Denies Other Psychotic Symptoms: Thought disorganization, denies recent thoughts. Anxiety: 0/10 Depression: 0/10 Current Medications Current Medications Aripiprazole 15 mg DAILY PO Last administered on 04/12/17t 08:11; Admin Dose 15 MG; Start 04/12/17 at 08:30 Mental Status Exam Vital Signs Vital Signs Date Time Temp Pulse Resp B/P Pulse Ox O2 Delivery O2 Flow Rate FiO2 04/12/17 17:29 36.5 82 16 139/139 Appearance: Neat/well groomed Attitude: Cooperative Behavior: Distractible Affect: Other (Elevated) Mood: Expansive Thought Process/Associations: Tangential Speech Production: Normal Speech Rate: Normal Speech Articulation: Normal Thought Content: Perseveration Danger to Self/Suicidal Ideati: None Danger to Others: None Delusions: Grandiose Hallucinations: Auditory (Denies), Visual (Denies) Consciousness: Alert Orientation: Person, Place, Date, Situation Memory: Grossly Intact Estimate Intellectual Function: Average Basis for IQ estimate: Awareness current events, Word use/vocabulary, Educational history, Employment history Attention/Concentration & Cogn: Impaired Cognitive Testing Method: Abstract Reasoning during interview, Other (MMSE 26/ 30 on admission) Insight: Limited Judgement: Limited Mental Health Plan The patient is a 66-year-old female, who had been living independently and 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 Now she is quite isolated in her apartment. Dr. Raza was consulted on the medical service where she was there for over a week in late February and early March for similar presentation. At that time it appeared that the confusion and paranoia were a result of high doses of methadone and oxycodone. Since that time, she reports not having any for the past six weeks and presents with a similar presentation with a declining cognitive functioning. The patient has poor impulse control, yelling at neighbors and using racial slurs with peers. The patient reported having a supportive brother, Geovani, in [place]. The patient has made improvements, but is still experiencing some thought disorganization and grandiosity, she is denying side effects to increase in aripiprazole. [place] AXIS I 1. Psychotic disorder unspecified 2. Mood disorder unspecified vs. bipolar disorder, mixed, with psychotic features 3. Rule out neurocognitive disorder, unspecified. AXIS II Defer. AXIS III 1. Low back pain. 2. Recent narcotic addiction. AXIS IV Unknown. AXIS V Current global assessment of functioning equal to 30. Medications Psychiatric Medications: Aripiprazole 15mg po daily Quetiapine 50mg at bedtime Vitamine D3 1000units daily Treatments 1. The patient is admitted to the inpatient unit and will be provided a safe and secure environment. 2. The patient is denying current active suicidality and is not in need of a one-to-one at this time. 3. The patient is encouraged to participate with group and milieu activities. 4. The patient will be seen by the treatment team on a daily basis to assess symptoms, side effects and response to treatment. 5. Consider titrating aripiprazole or adding a mood stabilizer which may also improve cognition 6. Consider discontinuing Seroquel 50 at bedtime 7. Patient is on a 14 day involuntary treatment hold initiated 04/09/2017. 8. Disposition: Home or assisted care depending on how the client's condition stabilizes David Garrett MD April 12, 2017 18:48
--- NOTE | 2017-04-12 20:32 | NUR ---
Observations 899 - 0 Pt continues labile, entitled, confused, intrusive with peers and manipulative. Pt speech was rambling and nonsensical at times. Pt is rude to other patients when staff isn't right there. Pt eye contact was intense at times. Pt is polite at times, rude and demanding other times when approached by staff. Pt was cooperative, maintained behavior control throughout the shift for the most part. Pt required some staff redirection due to topic of conversation with peers and agitation. Pt was going to her room as a coping skill to get away from others. Pt attended community meeting and set a daily goal. Pt rated her mood /10, with 10 being the best. Pt attended meals in D.R. and declined breakfast, ate 50% of lunch and 75% of dinner. Pt ate snack. Pt listened to music in group room and it appears to calm and mellow her. Pt went out on patio with staff and peers. Pt does have trouble focusing and sitting or being in one place for too long, has short attention span. Pt was observed every 15 minutes throughout the shift as ordered.
--- NOTE | 2017-04-12 21:30 | NUR ---
Behavior S: Pt pacing the halls. Restless. Tangental conversation. Difficult to follow. I: Give night medications for sleep and anxiety. E: Pt compliant with meds. Currently in her room.
[2017-04-13] MEDS: LORazepam 1 mg Tablet PO PRN ×2 (01:08→15:51)
--- NOTE | 2017-04-13 07:03 | NUR ---
OBSERVATIONS Pt was pleasant and cooperative with staff, at times antagonistic with peers. Pt is tangential in conversation and rarely makes sense. Pt is upset about trading an article of clothing with another pt. Maintained Q15 checks for safety as directed.
[2017-04-13 08:27] VITALS: BP 133/88; PULSE 81; RESP 16
[2017-04-13] MEDS: Pantoprazole 20 mg ER24 Tablet PO SCH (08:34)
[2017-04-13] MEDS: oxyCODONE-Acetamin 5-325 mg Tablet PO PRN ×3 (10:09→19:54)
--- NOTE | 2017-04-13 14:13 | NUR ---
Obs Dayshift Pt has little to no change from what this automotive service writer saw last week. Pt is nonsensical, rambling, not tracking, confused, labile, disorganized, and demanding. Pt is not able to follow in groups, pt is easily irritable and can be verbally aggressive w/ peers and staff. Pt is quite restless, often up and down, nonstop talking. At times pt is a good eater, other times she is to restless to sit and eat. Ok ADL's, at times needs reminders.
[2017-04-13] MEDS: hydrOXYzine Pamoate 25 mg Capsule PO PRN (15:51)
--- NOTE | 2017-04-13 15:56 | NUR ---
Nursing Note [id number] S: "I do not know who I can trust, remember when I thought you were someone else-I don't know how I can tell, because it is a secret and nobody knows except me". O: Patient unable to follow a train of thought, very fragmented. Singles out another patient on unit that she does not like. Singles out another patient that she will not leave alone if he comes out of his room. A: Pressured, disorganized speech, paranoid, intrusive. P: Monitor for response to treatment. Q 15 min checks for safety. Follow plan of care.
--- NOTE | 2017-04-13 17:49 | PCM.PNPSY ---
Subjective Date of Service April 13, 2017 Subjective The patient reports that she is doing "better than yesterday." She is still somewhat loose and disorganized at times making such statements as "everybody knows about my osorio." When asked about racing thoughts she stated "why I cannot see them Jack I want to see on the third floor." The patient also made some referential thoughts. She stated her mood was 7 out of 10 bad "because anything that comes out of my mouth is not bad." She denied acute medical issues. She denied side effects to increase in aripiprazole. Sleep: 6.25 hours Appetite: "Better" Suicidal and homicidal ideation: Denies Auditory hallucinations: Denies Visual hallucinations: Denies Other Psychotic Symptoms: Thought disorganization though improved from yesterday Anxiety: 7-8/10 Depression: 0/10 Current Medications Current Medications Aripiprazole 15 mg DAILY PO Last administered on 04/13/17 08:34; Admin Dose 15 MG; Start 04/12/17 at 08:30 Mental Status Exam Appearance: Neat/well groomed Attitude: Pleasant, Cooperative Behavior: Distractible Affect: Well Modulated/Appropriate Mood: Euthymic Thought Process/Associations: Tangential, Circumstantial Speech Production: Normal Speech Rate: Normal Speech Articulation: Normal Thought Content: Perseveration Danger to Self/Suicidal Ideati: None Danger to Others: None Delusions: Grandiose Hallucinations: Auditory (Denies), Visual (Denies) Consciousness: Alert Orientation: Person, Place, Date, Situation Memory: Grossly Intact Estimate Intellectual Function: Average Basis for IQ estimate: Awareness current events, Word use/vocabulary, Educational history, Employment history Attention/Concentration & Cogn: Impaired Cognitive Testing Method: Abstract Reasoning during interview, Other (MMSE 26/ 30 on admission) Insight: Limited Judgement: Limited Mental Health Plan The patient is a 66-year-old female, who had been living independently and 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 Now she is quite isolated in her apartment. Dr. Raza was consulted on the medical service where she was there for over a week in late February and early March for similar presentation. At that time it appeared that the confusion and paranoia were a result of high doses of methadone and oxycodone. Since that time, she reports not having any for the past six weeks and presents with a similar presentation with a declining cognitive functioning. The patient has poor impulse control, yelling at neighbors and using racial slurs with peers. The patient reported having a supportive brother, Geovani, in [place]. The patient appears much improved today and is interacting appropriately with others in social situations. She is still experiencing some thought disorganization and grandiosity. [place] AXIS I 1. Psychotic disorder unspecified 2. Mood disorder unspecified vs. bipolar disorder, mixed, with psychotic features 3. Rule out neurocognitive disorder, unspecified. AXIS II Defer. AXIS III 1. Low back pain. 2. Recent narcotic addiction. AXIS IV Unknown. AXIS V Current global assessment of functioning equal to 30. Medications Psychiatric Medications: Aripiprazole 15mg po daily Quetiapine 50mg at bedtime Vitamine D3 1000units daily Treatments 1. The patient is admitted to the inpatient unit and will be provided a safe and secure environment. 2. The patient is denying current active suicidality and is not in need of a one-to-one at this time. 3. The patient is encouraged to participate with group and milieu activities. 4. The patient will be seen by the treatment team on a daily basis to assess symptoms, side effects and response to treatment. 5. Consider titrating aripiprazole further or adding a mood stabilizer which may also improve cognition 6. Consider discontinuing Seroquel 50 at bedtime 7. Patient is on a 14 day involuntary treatment hold initiated 04/09/2017. 8. Disposition: Home or assisted care depending on how the client's condition stabilizes David Garrett MD April 13, 2017 17:49
--- NOTE | 2017-04-13 22:44 | NUR ---
NURS Note [id number] Mood: "I'm great. 10 out to 10." Denies depression and anxiety. Affect: Well-modulated. Behavior: Pt up in common areas most of shift, interacting with peers. Thought Content/Process: "[Fellow pt] is dangerous. She need to get out of here." Paranoid, delusional. Tangential, circumstantial. Confused, disoriented (to time). At 1900 pt came to [facility] asking for omeprazole before breakfast. Pt seemed to think that it was morning and did not initially believe communications writer when I told her that it was 7pm not 7am. Denies HI, SI. Denies AH,VH. PRN/NURS Notes: Lorazepam 1 mg and hydroxyzine 50 mg for anxiety at 1551. Percoset for pain at 1953.
--- NOTE | 2017-04-14 05:36 | NUR ---
nursing, nights, 11-7 s/o- has appeared to sleep after 2300 during q 15 minute assessments. Awoke at 0300 and requested sleep aid then back to sleep. a- no apparent distress. p- monitor behavior/emotional state, quality, times and amount of sleep, use and effect of medication.
[2017-04-14] MEDS: Alum-Mag Hydrox-Simeth 30 mL Suspension PO PRN (06:08)
[2017-04-14] MEDS: Pantoprazole 20 mg ER24 Tablet PO SCH (08:24)
[2017-04-14 09:20] VITALS: BP 136/97; PULSE 82; RESP 16
[2017-04-14] MEDS: oxyCODONE-Acetamin 5-325 mg Tablet PO PRN ×5 (11:00→20:59)
[2017-04-14] MEDS: LORazepam 1 mg Tablet PO PRN ×2 (13:02→20:56)
--- NOTE | 2017-04-14 13:28 | NUR ---
Nursing note: "paranoid and Insecure" were the words she gave to describe how she felt: "I made the mistake to see the news on the TV." She is pressured in speech, tangential and confused (Came out in her nightgown, again confused about the time.) She's been out in the milieu and social. C/o headache/neckache of 10 this am and tried the Ibuprofen which she said was ineffective.New order recieved for muscle relaxer; 1100 asked again for pain meds and something for anxiety. Took her the Robaxin and Ativan but she declined the Ativan @ this time. At 1315 requested something more and Ativan was now given for some increasing anxiety. New order for Depakote and her Respirdol dc'd Addendum: 04/14/17 at 1414 by LALO ADAM RN The Seroquel, not Risperdol was dc'd
--- NOTE | 2017-04-14 13:52 | NUR ---
S: "Can you give me more percocet, my back is hurting." O: Patient did not have any SI or HI, and did not have any auditory or visual hallucinations. Patient stated that she was not depressed, just angry, but did not state a reason for her anger. She stated she was anxious because of her back pain, and asked the dr for more pain medication. She stated that she has no had any appetite and has had a migraine and a backache all day. Patient did sleep for 6 hours and some medication changes were discussed with the dr. Patient slept for 6 hours. A: Patient was cooperative in answering all questions, but was very concerned with other patients and their behaviors etc. She is quick to point out other patient's problems, and does not take much responsibility for her own actions. Patient refused to participate in afternoon group due to certain other patients also being present. P: Follow care plan and coordinate with outpatient provider. Continue to monitor behavior. Dr recommended an additional dementia screening.
--- NOTE | 2017-04-14 15:32 | NUR ---
Obs Dayshift Pt stated, "If I keep getting lied to then I'm going to need some pain meds" and "I'm not feeling safe here so I need to go home because I'm a New Year's baby and I have money coming to me due to being a New Years baby and I need to go sign papers to buy [place]" Pt is Disorganized, restless, not tracking in conversations, delusional, tangential, confused. Less argumentative today than previous days. Pt is engaging w/ more peers and no confrontation. Good meals, Ok ADL's
--- NOTE | 2017-04-14 16:18 | NUR ---
Nurses PRN Patient requested and received Percocet 1 tab for c/o back pain,will assess response.
--- NOTE | 2017-04-14 17:28 | PCM.PNPSY ---
Subjective Date of Service April 14, 2017 Subjective Regarding how she is doing today, the patient states, "I do not even have an answer." She states that she has been having daily headaches for a while and that one of the female peers is one of her stressors. She says the peers name reminds her of her favorite horse. We discussed treatment of her headache with Depakote which would also help stabilize her mood and work with the aripiprazole. The patient was agreeable. She denied side effects to increase in aripiprazole. Sleep: 6 hours Appetite: "None today for my headache" Suicidal and homicidal ideation: Denies Auditory hallucinations: Denies Visual hallucinations: Denies Other Psychotic Symptoms: Thought disorganization somewhat worse than yesterday Anxiety: "The highest anxiety I never had" although the patient was unable to give symptoms and did not appear in any distress. Depression: "Pissed that I can't have my freedom." Current Medications Current Medications Methocarbamol 500 mg QID PRN PO Last administered on 04/14/17t 11:00; Admin Dose 500 MG; Start 04/14/17 at 10:35 Mental Status Exam Appearance: Neat/well groomed Attitude: Pleasant, Cooperative Behavior: Distractible Affect: Well Modulated/Appropriate Mood: Euthymic Thought Process/Associations: Tangential, Circumstantial Speech Production: Normal Speech Rate: Normal Speech Articulation: Normal Thought Content: Perseveration Danger to Self/Suicidal Ideati: None Danger to Others: None Delusions: Grandiose Hallucinations: Auditory (Denies), Visual (Denies) Consciousness: Alert Orientation: Person, Place, Date, Situation Memory: Grossly Intact Estimate Intellectual Function: Average Basis for IQ estimate: Awareness current events, Word use/vocabulary, Educational history, Employment history Attention/Concentration & Cogn: Impaired Cognitive Testing Method: Abstract Reasoning during interview, Other (MMSE 26/ 30 on admission) Insight: Limited Judgement: Limited Mental Health Plan The patient is a 66-year-old female, who had been living independently and 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 Now she is quite isolated in her apartment. Dr. Raza was consulted on the medical service where she was there for over a week in late February and early March for similar presentation. At that time it appeared that the confusion and paranoia were a result of high doses of methadone and oxycodone. Since that time, she reports not having any for the past six weeks and presents with a similar presentation with a declining cognitive functioning. The patient has poor impulse control, yelling at neighbors and using racial slurs with peers. The patient reported having a supportive brother, Geovani, in [place]. The patient is somewhat more disorganized today and would benefit from augmentation therapy with divalproex given her mood lability. This also will likely address her ongoing headache complaints. [place] AXIS I 1. Psychotic disorder unspecified 2. Mood disorder unspecified vs. bipolar disorder, mixed, with psychotic features 3. Rule out neurocognitive disorder, unspecified. AXIS II Defer. AXIS III 1. Low back pain. 2. Recent narcotic addiction. AXIS IV Unknown. AXIS V Current global assessment of functioning equal to 30. Medications Psychiatric Medications: Aripiprazole 15mg po daily Quetiapine 50mg at bedtime Vitamine D3 1000units daily Treatments 1. The patient is admitted to the inpatient unit and will be provided a safe and secure environment. 2. The patient is denying current active suicidality and is not in need of a one-to-one at this time. 3. The patient is encouraged to participate with group and milieu activities. 4. The patient will be seen by the treatment team on a daily basis to assess symptoms, side effects and response to treatment. 5. Start Depakote daily 500 mg at bedtime 6. Discontinue quetiapine 7. Methocarbamol 500 mg 4 times daily as needed for muscle cramps 8. Patient is on a 14 day involuntary treatment hold initiated 04/09/2017. 9. Disposition: Home or assisted care depending on how the client's condition stabilizes David Garrett MD April 14, 2017 17:28
[2017-04-14] MEDS ORDERED: Divalproex (QD) 500 mg ER24 Tablet PO SCH ×2 (21:00)
--- NOTE | 2017-04-14 22:12 | NUR ---
Nurses Note Evening Patient has been social,pleasant and cooperative. Her thoughts have been disorganized and unrelated. She attended groups,ate well at dinner,her hygiene and sleep patterns are undisturbed. Continue q 15min. checks for safety,support. Addendum: 04/14/17 at 2215 by TOM MCDUFFIE RN Amended: Links added.
[2017-04-15] MEDS: hydrOXYzine Pamoate 25 mg Capsule PO PRN ×2 (03:49→18:24)
--- NOTE | 2017-04-15 04:44 | NUR ---
Nursing NOC 7p-7a PT has only slept for a few hours tonight. PT awoke around MN and was wondering around the unit. PT then requested something to help her sleep and was given 5mg ambien with minimal effectiveness. PT then came out and requested something to "keep her asleep." At that time vistaril was given. Literally 5 minutes after, pt came out to the station and said "the medicine is not working." At this point it was too late to administer 2nd dose of ambien. PT does track well at all and did not believe it had only been a very short time since med was given. Currently pt is at RN station perpetuating about her razor and it's ineffectiveness. PT also was c/o of a "hang nail" on her R middle finger. Area was cleansed and bandaid applied. WIll monitor for any s/s of infection. Will CTM for medication effectiveness and any new A/R.
[2017-04-15] MEDS: Pantoprazole 20 mg ER24 Tablet PO SCH (08:17)
[2017-04-15] MEDS: oxyCODONE-Acetamin 5-325 mg Tablet PO PRN ×3 (08:17→19:05)
[2017-04-15 08:39] VITALS: BP 140/86; PULSE 81; RESP 12
--- NOTE | 2017-04-15 14:03 | NUR ---
Nursing Note [id number] Behavior, Medications S/O: Pt ate 60% of breakfast & 50% of lunch. Vital signs stable. Pt requested pain medication for back pain at a "6" on a scale of 1-10/10 the worst. Pt given Percocet 5-325 at 0817. Back pain reduced to a "5" at 1000. Pt has been hypersexual on unit. Pt tucking shirt into bra to make it more revealing. Pt stated about a male pt that she wanted to "mount" him. She also talked about the "cartel." Conversation tracking is pressured, tangential & difficult to follow. A: Pt con't to be manic. P: Provide supportive environment. Monitor medications & effects.
--- NOTE | 2017-04-15 17:14 | NUR ---
Observations 00 - 0 Pt was labile, hypersexual, inappropriate at times, intrusive with peers and manipulative. Pt speech was rambling and nonsensical at times. Pt is rude to other patients when staff isn't right there. Pt eye contact was ok. Pt is polite at times, rude and demanding other times when approached by staff. Pt was cooperative, maintained behavior control throughout the shift for the most part. Pt required some staff redirection due to topic of conversation. Pt attended community meeting and set a daily goal. Pt rated her mood 10/10, with 10 being the best. Pt attended meals in D.R. and ate 60% of breakfast and 50% of lunch. Pt ate snack. Pt went out on patio with staff and peers to get some fresh air and socialize. Pt continues to have trouble focusing and sitting or being in one place for too long, has short attention span. Pt is fixated on possible d/c date. Pt was observed every 15 minutes throughout the shift as ordered.
--- NOTE | 2017-04-15 18:24 | NUR ---
nurses PRN Patient requested and received Ibuprofen 600mg and Vistaril 50mg for elbow pain and anxiety,will assess response.
--- NOTE | 2017-04-15 19:25 | NUR ---
Nurses Note evening Patients' mood has been labile with frequent periods of increased restlessness,confusion with agitation and a low frustration tolerance. She remains medication compliant without adverse effect. Her appetite,hygiene and sleep pattern are within normal limits. Continue to redirect,limit set on behaviors,offer support and redirection,maintain q 15min. checks for safety and support. Addendum: 04/15/17 at 1940 by TOM MCDUFFIE RN Amended: Links added.
--- NOTE | 2017-04-15 20:14 | NUR ---
site project manager/Counselor: S: "I need to stay here to be safe." O: Patient slept 5 hours last night per staff. Patient denies S/I and H/I. She also denies auditory and visual hallucinations. Depression is 0/10 and anxiety is 0/10. This telegraphic typewriter installer spoke with patient's brother and patient's brother is on his way driving to [place] to see patient. A: Patient is cooperative, unkept, disheveled, guarded, restricted affect, dysthymic, endorses telepathy, limited insight, limited judgment. Addendum: 04/15/17 at 2016 by SHERRIE VASQUEZ [facility] Patient attended and participated in the afternoon group session.
[2017-04-15] MEDS: Divalproex (QD) 500 mg ER24 Tablet PO SCH (20:52)
--- NOTE | 2017-04-15 23:44 | PCM.PNPSY ---
Subjective Date of Service Apr 15, 2017 Subjective The patient reports today, "I have to be first because Im the first New Year's Baby." Patient reports getting along with peers. Patient reports received phone call from her brother. Regarding new male patient, "it's going to get worse because the new zuleyma is here and he's borderline good looking." Patient denies headache or side effects. Discussed increasing Depakote, patient agreeable. Sleep: 5 hours Appetite: "Depends, I'd rather drink than eat it" Suicidal and homicidal ideation: Denies Auditory hallucinations: Denies Visual hallucinations: Denies Other Psychotic Symptoms: Thought disorganization, grandiose Anxiety: "so-so" Depression: 0/10 Current Medications Current Medications Divalproex Sodium 500 mg HS PO Last administered on 04/14/17 20:55; Admin Dose 500 MG; Start 04/14/17 at 21:00; Stop 04/15/17 at 04:20; Status DC Divalproex Sodium 1,000 mg HS PO Last administered on 04/15/17 20:52; Admin Dose 1,000 MG; Start 04/15/17 at 21:00 Methocarbamol 500 mg QID PRN PO Last administered on 04/15/17 20:52; Admin Dose 500 MG; Start 04/14/17 at 10:35 Mental Status Exam Appearance: Neat/well groomed Attitude: Pleasant, Cooperative Behavior: Distractible Affect: Well Modulated/Appropriate Mood: Euthymic Thought Process/Associations: Tangential, Circumstantial Speech Production: Normal Speech Rate: Normal Speech Articulation: Normal Thought Content: Perseveration, Erotomanic Danger to Self/Suicidal Ideati: None Danger to Others: None Delusions: Grandiose Hallucinations: Auditory (Denies), Visual (Denies) Consciousness: Alert Orientation: Person, Place, Date, Situation Memory: Grossly Intact Estimate Intellectual Function: Average Basis for IQ estimate: Awareness current events, Word use/vocabulary, Educational history, Employment history Attention/Concentration & Cogn: Impaired Cognitive Testing Method: Abstract Reasoning during interview, Other (MMSE 26/ 30 on admission) Insight: Limited Judgement: Limited Mental Health Plan The patient is a 66-year-old female, who had been living independently and 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 Now she is quite isolated in her apartment. Dr. Raza was consulted on the medical service where she was there for over a week in late February and early March for similar presentation. At that time it appeared that the confusion and paranoia were a result of high doses of methadone and oxycodone. Since that time, she reports not having any for the past six weeks and presents with a similar presentation with a declining cognitive functioning. The patient has poor impulse control, yelling at neighbors and using racial slurs with peers. The patient reported having a supportive brother, Geovani, in [place]. The patient is still delusional, but reports that her headache has resolved, No side effects from Depakote.. [place] AXIS I 1. Psychotic disorder unspecified 2. Mood disorder unspecified vs. bipolar disorder, mixed, with psychotic features 3. Rule out neurocognitive disorder, unspecified. AXIS II Defer. AXIS III 1. Low back pain. 2. Recent narcotic addiction. AXIS IV Unknown. AXIS V Current global assessment of functioning equal to 30. Medications Psychiatric Medications: Aripiprazole 15mg po daily Quetiapine 50mg at bedtime Vitamine D3 1000units daily Depakote 1000mg po nightly Treatments 1. The patient is admitted to the inpatient unit and will be provided a safe and secure environment. 2. The patient is denying current active suicidality and is not in need of a one-to-one at this time. 3. The patient is encouraged to participate with group and milieu activities. 4. The patient will be seen by the treatment team on a daily basis to assess symptoms, side effects and response to treatment. 5. Increase Depakote to 1,000 mg at bedtime 6. Methocarbamol 500 mg 4 times daily as needed for muscle cramps 7. Patient is on a 14 day involuntary treatment hold initiated 04/09/2017. 8. Disposition: Home or assisted care depending on how the client's condition stabilizes David Garrett MD Apr 15, 2017 23:44 David Garrett MD Apr 15, 2017 23:44
--- NOTE | 2017-04-16 05:07 | NUR ---
nursing, nights, 11-7 s- i just need to get back to sleep. thank you. o- has appeared to sleep [id number]. received repeat 5 mg of ambien. appeared to sleep after 0145 to 0500. now socializing in the day room. assessed q 15 minutes. a- inadequate sleep, no apparent distress. p- monitor behavior/emotional state, quality, times and amount of sleep, use and effect of medication. david
[2017-04-16] MEDS: Pantoprazole 20 mg ER24 Tablet PO SCH (07:43)
[2017-04-16] MEDS: oxyCODONE-Acetamin 5-325 mg Tablet PO PRN ×3 (08:45→20:22)
[2017-04-16 09:50] VITALS: BP 131/93; PULSE 80; RESP 12
[2017-04-16] MEDS: LORazepam 1 mg Tablet PO PRN (10:56)
--- NOTE | 2017-04-16 14:27 | NUR ---
Nursing note dayshift S "you cant trust that nurse from last night." O: . Pt is very intrusive today. Pt appears to have no boundaries when it comes to the men in the milieu. Pt is hypersexual and hyperverbal. Pts thought pattern is disorganized. Pt will start with talking about a subject then her thought process goes into something completely different. A, very talkative and over friendly. Patient is anxious, restless and easily frustrated. Pt had 2 complaints of pain today, Percocet and ibuprofen given with some relief, Ativan given as well with some relief. Pt having paranoid and suspicious ideas about patients and staff today. P Follow plan of care, monitor behaviors. Monitor for side effects.
--- NOTE | 2017-04-16 17:39 | PCM.PNPSY ---
Subjective Date of Service Apr 16, 2017 Subjective The patient reports today, "I just had to take an anxiety pill." She reports that she has not had headaches since starting on Depakote. She also states that she is "even as I can be." She reported that she is looking forward to her brother's visit this evening. She reports a somewhat agitated female peer' s problematic for her as this peer has the same name as a favorite horse of hers when she was growing up. She asks, "when do I have to sign the New Year's baby papers?" The patient denies racing thoughts medical problems or side effects. Sleep: 5.5 hours Appetite: "Crackers or drinking it" Suicidal and homicidal ideation: Denies Auditory hallucinations: Denies Visual hallucinations: Denies Other Psychotic Symptoms: Thought disorganization, grandiose Anxiety: 8.5/10. No objective signs and anxiety. Depression: 0/10 Current Medications Current Medications Divalproex Sodium 500 mg HS PO Last administered on 04/14/17 20:55; Admin Dose 500 MG; Start 04/14/17 at 21:00; Stop 04/15/17 at 04:20; Status DC Divalproex Sodium 1,000 mg HS PO Last administered on 04/15/17 20:52; Admin Dose 1,000 MG; Start 04/15/17 at 21:00 Mental Status Exam Vital Signs Vital Signs Date Time Temp Pulse Resp B/P Pulse Ox O2 Delivery O2 Flow Rate FiO2 04/16/17 09:50 36.6 80 12 131/93 Appearance: Neat/well groomed Attitude: Pleasant, Cooperative Behavior: Distractible Affect: Well Modulated/Appropriate Mood: Euthymic Thought Process/Associations: Tangential, Circumstantial Speech Production: Normal Speech Rate: Normal Speech Articulation: Normal Thought Content: Perseveration, Erotomanic Danger to Self/Suicidal Ideati: None Danger to Others: None Delusions: Grandiose Hallucinations: Auditory (Denies), Visual (Denies) Consciousness: Alert Orientation: Person, Place, Date, Situation Memory: Grossly Intact Estimate Intellectual Function: Average Basis for IQ estimate: Awareness current events, Word use/vocabulary, Educational history, Employment history Attention/Concentration & Cogn: Impaired Cognitive Testing Method: Abstract Reasoning during interview, Other (MMSE 26/ 30 on admission) Insight: Limited Judgement: Limited Mental Health Plan The patient is a 66-year-old female, who had been living independently and 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 Now she is quite isolated in her apartment. Dr. Raza was consulted on the medical service where she was there for over a week in late February and early March for similar presentation. At that time it appeared that the confusion and paranoia were a result of high doses of methadone and oxycodone. Since that time, she reports not having any for the past six weeks and presents with a similar presentation with a declining cognitive functioning. The patient has poor impulse control, yelling at neighbors and using racial slurs with peers. The patient reported having a supportive brother, Geovani, in [place]. The patient's is still delusional but has fewer themes. Speech is still at times disorganized but is becoming more organized. The patient may benefit from an increase in Depakote or aripiprazole should her symptoms not continue to improve. [place] AXIS I 1. Psychotic disorder unspecified 2. Mood disorder unspecified vs. bipolar disorder, mixed, with psychotic features 3. Rule out neurocognitive disorder, unspecified. AXIS II Defer. AXIS III 1. Low back pain. 2. Recent narcotic addiction. AXIS IV Unknown. AXIS V Current global assessment of functioning equal to 30. Medications Psychiatric Medications: Aripiprazole 15mg po daily Quetiapine 50mg at bedtime Vitamine D3 1000units daily Depakote 1000mg po nightly Treatments 1. The patient is admitted to the inpatient unit and will be provided a safe and secure environment. 2. The patient is denying current active suicidality and is not in need of a one-to-one at this time. 3. The patient is encouraged to participate with group and milieu activities. 4. The patient will be seen by the treatment team on a daily basis to assess symptoms, side effects and response to treatment. 5. Increase Depakote to 1,000 mg at bedtime, check blood level in 5 days. 6. Methocarbamol 500 mg 4 times daily as needed for muscle cramps 7. Patient is on a 14 day involuntary treatment hold initiated 04/09/2017. 8. Disposition: Home or assisted care depending on how the client's condition stabilizes David Garrett MD Apr 16, 2017 17:39
--- NOTE | 2017-04-16 18:14 | NUR ---
[facility] Day Shift Pt maintained behavioral control throughout the shift, but pt occasionally has difficulty respecting other pt's boundaries. Pt affect appears mostly euthymic. Pt occasionally displays some paranoid delusions about other patients, claiming they are dangerous and have been purposefully antagonizing her. Pt spends most of the shift interacting with peers on the unit and participating in unit activities. Pt is mostly appropriate with staff and peers when active on the unit. Pt attended all meals and ate approx 80% of all meals.
--- NOTE | 2017-04-16 18:36 | NUR ---
NURSING NOTE [id number] Mood: "perfect!" Affect: bright, hypersexual at times Behavior: spent time out on the patio tanning, socialized w/peers, requested Percocet PRN @ 16:13 for 6/10 back pain-- later reported it was effective but that she felt "loopy" Thought processes: denies all psychiatric issues, is tangential in conversation and rambles at times. No overt delusional content noted this shift. Denies any safety issues here.
--- NOTE | 2017-04-16 19:22 | NUR ---
optimization manager/Counselor: S: "All I need is my freedom to be happy. I shouldn't have to take pills to be happy." O: Patient slept 5.5 hours last night per staff. Patient denies S/I and H/I. She also denies auditory and visual hallucinations. Depression is 0/10 and anxiety is 8.5/10. Patient stated, "Everything is working, it's just not working fast enough." A: Patient is cooperative, unkept, disheveled, guarded, restricted affect, dysthymic, endorses telepathy, limited insight, limited judgment.
[2017-04-16] MEDS: Divalproex (QD) 500 mg ER24 Tablet PO SCH (20:23)
--- NOTE | 2017-04-17 02:01 | NUR ---
activity patient very busy and communicative this evening. requested percocet x1 for back pain. requested ice pack for back pain. up multiple times between 2200 and 0100. now resting. care ongoing.
--- NOTE | 2017-04-17 02:36 | NUR ---
sleep / pain complains of back pain rates 8. cannot sleep. medicated with percocet and hydroxyzine. care ongoing.
[2017-04-17] MEDS: oxyCODONE-Acetamin 5-325 mg Tablet PO PRN ×4 (02:37→17:24)
[2017-04-17] MEDS: hydrOXYzine Pamoate 25 mg Capsule PO PRN (02:38)
[2017-04-17] MEDS: LORazepam 1 mg Tablet PO PRN (05:49)
--- NOTE | 2017-04-17 06:35 | NUR ---
sleeplessness patient slept a total 1.25 hours. very restless. sleep medications given as documented. not effective. patient paced hallways and talked with other patients most of the night. changed her clothes multiple times. attempted calming conversation. not effective. patient remains cooperative with instructions. but has rambling conversation and is accusatory of staff at times.
[2017-04-17 07:50] VITALS: BP 131/81; PULSE 70; RESP 16
[2017-04-17] MEDS: Pantoprazole 20 mg ER24 Tablet PO SCH (08:02)
--- NOTE | 2017-04-17 12:33 | PROG NOTE ---
[address] [address] PROGRESS NOTE PATIENT: ERIKA PONCE : 1950 MR#: [id number] ADMIT: 04/06/2017 JOB ID: [id number] DATE: 04/17/2017 CHIEF COMPLAINT: "I am here to help the medical people. They know that I have great julian." HISTORY OF PRESENT ILLNESS: As stated above, the patient did identify that she is currently in the hospital but gave no specific indication of her understanding and reasoning. She believes at this point that she has been admitted to the hospital to help the other medical attendant. She gave a lengthy description that she has lived in [place] for approximately three years. Prior to such was living in [place], [place]. The patient reportedly has a prior history of admission within the past month x2 with prior consultation on the medical floor in February and in March as well. The patient did show evidence of increasing usage of methadone and oxycodone with noted decreasing cognitive performance. There were concerns of both mood disorder and psychoses with evidence of suspicions of neurocognitive decline. The patient reportedly at this time is maintained on doses of Depakote 1000 mg at bedtime and methocarbamol 500 mg q.i.d., and she is remaining on a 14 day MR. Discussion has been held of possible assisted living post discharge. OBJECTIVE: On mental status exam, the patient is somewhat grandiose on presentation. She openly identifies that she is not really in the hospital for herself but for others. She does make some grandiose statements and made some reference prior to Dr. Garrett of different males on the unit that were attractive. She has agreed to take medications administered at this time. She is casually dressed in her own attire but had changed in and out of various clothing throughout the morning hours. Her speech is of normal tone, frequency and volume. Her mood is mildly manic with hypomanic presentation. Her thought process shows some reference of random flight of ideas, some loose and disconnected thinking. 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 She denies any current suicidal or homicidal ideation. No evidence of active hallucinations. There are some delusions of grandeur. She is alert and oriented to time and place. Her attention and concentration are poor. Insight and judgment are poor. PHYSICAL EXAMINATION: Vital signs are current. Temperature is 36.6, pulse 80, respirations 12, BP 131/93. MEDICATION REVIEW: Includes: 1. Depakote 1000 mg q.h.s. 2. Robaxin 500 mg q.i.d. 3. Abilify 15 mg daily. 4. Neurontin 300 mg t.i.d. 5. Vitamin D3, 1000 daily. 6. Lipitor 20 mg daily. 7. Melatonin 5 mg q.h.s. 8. Oxycodone 1 tablet q.4 h. p.r.n. for pain. 9. Vistaril 50 mg q.4 h. LABORATORY DATA REVIEW: Indicated positive U tox screening for THC on the 05 of April. There has been no collection of Depakote levels at this time. ASSESSMENT: AXIS I 1. Mood disorder, not otherwise specified. 2. Opiate use disorder with question of delusions. 3. Psychotic disorder, not otherwise specified. 4. AXIS II Deferred. AXIS III History of chronic pain. AXIS IV Stressors are noted for disturbance of coping, ineffective use of pain medications in the past. AXIS V Global Assessment of Functioning current 30. PLAN: 1. Recommendation is for consideration of discontinuation of Percocet based on suspicion of misuse. 2. Continuation of Robaxin 500 mg q.i.d. p.r.n. for spasms. 3. Discontinuation of Ativan due to suspicion of misuse of addictive substances. 4. Consideration of titration of Depakote to 1500 mg q.h.s. 5. Continuation of 14 day order as noted.
--- NOTE | 2017-04-17 14:04 | NUR ---
Nursing/Day- Patient stated," I am happy, this is one of the best days I have had here." Up dressed and groomed, walking around in dining area. She said that she took 2 power naps today because she did not sleep well last night. She denied feeling depressed or anxious. Eating most of meals.
--- NOTE | 2017-04-17 18:48 | NUR ---
Observations from [id number] pt continues to be hypomanic and occasionally has difficulty respecting other pt's boundaries. Pt occasionally displays some paranoid delusions about other patients, claiming they are dangerous and have been purposefully antagonizing her. Pt spends most of the shift interacting with peers on the unit and participating in unit activities. Pt is redirectable and pleasant with staff Good Meals and good ADLs
[2017-04-17] MEDS: Divalproex (QD) 500 mg ER24 Tablet PO SCH (20:51)
--- NOTE | 2017-04-17 22:38 | NUR ---
NURSING NOTE [id number] Mood: "alright today" *smiles* Affect: pleasant, cooperative Behavior: very social in the milieu, occasionally seen skipping and twirling in the hallway, spent time out on the patio, participated in groups. Thought processes: disorganized w/tendency to ramble, hyperverbal, grandiose at times. She denies depression or SI. Denies AH/VH.
[2017-04-18] MEDS: oxyCODONE-Acetamin 5-325 mg Tablet PO PRN ×3 (02:51→21:22)
[2017-04-18] MEDS: hydrOXYzine Pamoate 25 mg Capsule PO PRN ×2 (04:00→17:57)
--- NOTE | 2017-04-18 05:22 | NUR ---
Observations 1900 - 0700 Pt was observed to be friendly, social, bright when engaged and out on the unit most of the evening. Pt was pleasant, polite and cooperative when approached. Pt maintained behavior throughout the shift. Pt speech and eye contact was good. Pt watched some TV with peers before bed. Pt first appeared asleep at 2215. Pt was observed every 15 minutes through the night as ordered.
--- NOTE | 2017-04-18 06:33 | NUR ---
Sleep 11p-7a Pt slept from 4527-1580. She awoke with "All over body pain rated 8/10". She requested and received Percocet 1 tab po prn and Robaxin 500 mg po prn for pain @ 0250 with good effect. Pt then slept from 1837-7188. She remains awake in the dining room in good spirits with no further c/o pain. Total sleep 5.25 hours.
[2017-04-18] MEDS: Pantoprazole 20 mg ER24 Tablet PO SCH (07:23)
[2017-04-18] MEDS: Alum-Mag Hydrox-Simeth 30 mL Suspension PO PRN (08:32)
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
[2017-04-18 13:16] VITALS: BP 132/91; PULSE 97; RESP 16
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
[2017-04-18] MEDS: Divalproex (QD) 500 mg ER24 Tablet PO SCH (21:23)
--- NOTE | 2017-04-18 23:10 | NUR ---
NURSING NOTE [id number] Mood: "I'm telling you my pain is out of this world, johny-high, but I know I've gotta stay strong for Doctor Austin" *smiles* Affect: mostly pleasant but some periods of irritability r/t complaints of pain, paranoid at times Behavior: visible in milieu, intrusive w/other pts at times, med compliant Thought processes: pt. has been complaining intermittently about having her Percocet order reduced to BID PRN but also stated that she trusts her doctor and believed "he knows best." She is still delusional on and off in conversation, grandiose, and at times suspicious. She denies SI.
--- NOTE | 2017-04-19 06:11 | NUR ---
Nursing note: overnight houseperson/sleep Patient noted to b asleep early in shift, then awake at 0100 stating she could not fall back to sleep. Patient received Ambien 5mg at 0105 and returned to bed. Patient appears to be sleeping on subsequent safety checks during the night. Patient awake early am at 0530, noted to be socializing with peers.
[2017-04-19] MEDS: Pantoprazole 20 mg ER24 Tablet PO SCH (07:55)
[2017-04-19 08:28] VITALS: BP 138/89; PULSE 78; RESP 16
[2017-04-19] MEDS: oxyCODONE-Acetamin 5-325 mg Tablet PO PRN ×2 (09:03→18:24)
[2017-04-19 09:07] LABS: BASOPHILS % (AUTO) 0.1 % (0-3); EOSINOPHILS % (AUTO) 0.7 % (0-5); MONOCYTES % (AUTO) 7.8 % (4-12); Mean Corpuscular Hemoglobin 29.1 pg (27.0-35.0); Mean Corpuscular Volume 85.4 fL (81-100); NEUTROPHILS % (AUTO) 72.1 % (40-74); Platelet Count 312 bil/L (150-400)
--- NOTE | 2017-04-19 10:49 | NUR ---
Pain and pain relievers P: Pt. was pre-occupied by her pain relievers. She was very outspoken about change in her pain management during morning group meeting. I: PRN Percocet 1 tablet PO was given (for genital pain 08/24) prior to group meeting. E: Pt. reported pain dropped to 5/10, which was "acceptable". She was deeply concerned, "It's as good as I like it to be today. How about tomorrow? I want to talk to my doctor. I will have a different doctor if I have to." Pt. was encouraged to talk to her doctor.
--- NOTE | 2017-04-19 15:33 | NUR ---
Cementer Hand/Counselor S:"I'm an 8 in the good department!" O: Patient has no SI or HI, no auditory or visual hallucinations. No depression, but her anxiety is "high due to pain." Patient slept for 5.75 hours. A: Patient was cooperative and made good eye contact. She wanted it known that she was in a lot of pain, but still happy despite it. She mentioned her pain several times and was on her way to check on her pain medication. P:P: Follow care plan and coordinate with outpatient providers. Monitor behaviors.
--- NOTE | 2017-04-19 15:46 | NUR ---
Obs Dayshift Pt stated that she was 3/10 for mood due to her pain issues. Pt is polite upon contact, less needy than I saw last week. Pt continues to be quite pressured speech, tangential. Difficulty tracking in a conversation. Rambling, and nonsensical at times. Pt is minimally participating in groups, has difficulty following the group and taking turns in discussions, restless. Pt is mostly polite, engages w/ peers and staff, restless pacing around the unit often. Pt is disheveled in appearance, changing clothing multi times daily and often seen wearing multi layers. Pt is not able to participate much in structured grp. Pt has ok ADL's, Good meals
--- NOTE | 2017-04-19 16:49 | PROG NOTE ---
[address] [address] PROGRESS NOTE PATIENT: ERIKA PONCE : 1950 MR#: [id number] ADMIT: 04/06/2017 JOB ID: [id number] DATE: 04/19/2017 CHIEF COMPLAINT: "I do think it is a good idea, I need to have connections with services." HISTORY OF PRESENT ILLNESS: As stated above, the patient did speak with myself post interventions through the housing court judgehome health clinical liaison, Adriana, with recommendations of an LR 90+7. The patient indicates that she does believe that it is a good idea, and I will allow her to have connection with services. She indicated that through the years it has been difficult for her to actually get in to see psychiatrists and case supervisor. She reportedly did have a positive night, per staff report, and appears to be much more cohesive on her presentation. She was able to track and follow conversations and identified that she feels that her thoughts are less racing. Her laboratory data collected this morning did indicate a Depakote level at 95. No elevations of LFT. No concerns about platelet count. She does have mild complaints of a continuation of a burning sensation on urination and a urine culture is pending at this time. She is aware that I elected to discontinue her doses of p.r.n. Percocet and have offered it b.i.d. with the intent to taper and discontinue. My suspicion is that this was an ongoing misuse and use disorder of opiates. I have discussed with the treatment team the intent to taper and discontinue. She indicated that in the outpatient sector, she has bottles of lidocaine that she uses topically at home. She indicates that she has been on this medication in the past but prefers oral doses of opiates. I have discussed with her that the alternative would be utilization of Depakote which is often used in pain management clinics, and the patient was very optimistic about such. MENTAL STATUS EXAM: She was cooperative, polite. She was casually dressed in her own attire. She was less flamboyant. Her speech was of normal tone, frequency, and volume, less pressured. Her mood remains mildly euphoric but congruent. Her affect is mildly elevated. Her thought process shows some evidence of racing thoughts, but she indicates that they are slowing down. She denies any difficulties with intrusive thought patterns. Her thought content: There was no evidence of suicidal or homicidal ideation. No evidence of hallucinations, delusions. There continues to be a mild flavor of paranoia. She was alert, oriented to time and place. Her attention and concentration are improved. Insight and judgment are fair. PHYSICAL EXAM: Vital signs are current. Temperature is 36.6, pulse 78, respirations 16, BP 138/89. MEDICATION REVIEW: Includes: 1. Oxycodone 1 tablet b.i.d. p.r.n. for pain. 2. Depakote 1500 mg q.h.s. 3. Robaxin 500 mg q.i.d. p.r.n. 4. Abilify 15 mg daily. 5. Vitamin D 3 1000 units daily. 6. Protonix 20 mg daily. 7. Lipitor 20 mg daily. 8. Melatonin 5 mg q.h.s. ASSESSMENT: Hazard I 1. Bipolar disorder, most recent episode manic, with psychotic features. 2. Polysubstance use disorder including opiates. 3. Neurocognitive disorder. Hazard II Cluster B personality features. Hazard III History of chronic pain with multiple surgical interventions. Hazard IV 1. Stressors are noted for chronic use and misuse of opiates. 2. Chronic mental health issues. 3. Transition of life. Hazard V Global assessment of functioning current is 35. PLAN: 1. Recommendation is for continuation of all medications with further taper and discontinuation of oxycodone. 2. Applications for LR 90+7 with the intent to taper her narcotics and referrals to Pain Clinic. 3. Community-based referrals to follow once again. BREANA
--- NOTE | 2017-04-19 17:00 | NUR ---
Inappropriate remark P: One of the patients, [employer] reported that Mrs. Stinson out of the blue said, "Fuck you." to her. I: Mrs. Stinson admitted to her inappropriate remark to [employer] She explained, "I was just kidding." Reviewed behavioral policy with pt. Expect pt. to be respectful to others. E: Pt. verbalized understanding of no more offensive remarks.
[2017-04-19] MEDS: Divalproex (QD) 500 mg ER24 Tablet PO SCH (21:26)
[2017-04-20] MEDS: hydrOXYzine Pamoate 25 mg Capsule PO PRN (02:17)
--- NOTE | 2017-04-20 06:03 | NUR ---
Nursing Noc Pt's mood elevated with rambunctious behavior at times. She will make bizarre statements and act like those statements are funny. She has been active out on the unit during evening hours. No outbursts or inappropriate interactions with her peers this evening. Took scheduled medication without difficulty. She had broken sleep during the night totaling 5.25 hours. She requested and received a repeat of her Ambien 5mg po prn with moderate effect.
[2017-04-20] MEDS: Pantoprazole 20 mg ER24 Tablet PO SCH (08:12)
[2017-04-20 08:35] VITALS: BP 146/87; PULSE 87; RESP 18
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
--- NOTE | 2017-04-20 15:23 | NUR ---
Obs Dayshift Pt has little to no climate change risk assessor the last few days, difficulty tracking conversations, restless, not able to attend groups for very long or follow what is going on in group which requires a lot of staff redirection. Pt is inappropriate at times w/ peers or in the milieu. Pt is disorganized in her thought process, confused, and often needing reminders to come back to the question being asked or topic. Pt is pressured, rambling, and nonsensical. Ok ADL's, Good meals
--- NOTE | 2017-04-20 15:56 | NUR ---
Nursing days: Pt appropriate/cooperative at times, well groomed, participating in unit activities. Multiple c/o vaginal/lower abdomen/back pain, UA ordered and pending. Currently laying down with ice packs. Speech is rapid/pressured, delusions verbalized include "I own all of the undeveloped land [place] here [place], including [place]. Do you know [place]?" Pt further reports that "Someone famous is going to , or my first 's cat, he does grade A cocaine." Care ongoing.
[2017-04-20 17:37] LABS: APPEARANCE,URINE CLEAR (CLEAR,HAZY); COLOR,URINE YELLOW (YELLOW); OCCULT BLOOD,URINE TRACE (NEGATIVE)
[2017-04-20 17:38] LABS: UROBILINOGEN,URINE NORMAL (NORMAL)
[2017-04-20] MEDS: oxyCODONE-Acetamin 5-325 mg Tablet PO PRN (18:44)
[2017-04-20] MEDS: Divalproex (QD) 500 mg ER24 Tablet PO SCH (21:22)
[2017-04-21] MEDS: hydrOXYzine Pamoate 25 mg Capsule PO PRN ×3 (00:09→22:27)
--- NOTE | 2017-04-21 05:03 | NUR ---
Observations 1900 - 0700 Pt was observed to be friendly, social, bright when engaged and out on the unit most of the evening. Pt was pleasant, polite and cooperative when approached. Pt maintained behavior throughout the shift. Pt speech and eye contact was good. Pt attended wrap up group and stated that she had a good day. Pt first appeared asleep at 2215, has been up a few times and had broken sleep. Pt was observed every 15 minutes through the night as ordered.
--- NOTE | 2017-04-21 05:24 | NUR ---
Nursing Noc. Pt presents a little more reality based, meaning not coming to nursing station with paranoia and delusions. Appears playful and friendly peeking at staff and smiling with interaction. Zero c/o pain this shift, but report of PATIENT ADMITTING CLERK conserns or thigh pain. Noted to be first asleep at 2215 and had poor sleep. Continuing to monitor mood, behavior, and emotional state. Q15 minute safety checks throughout the night. CP
[2017-04-21] MEDS: oxyCODONE-Acetamin 5-325 mg Tablet PO PRN (05:36)
[2017-04-21] MEDS: Pantoprazole 20 mg ER24 Tablet PO SCH (08:17)
[2017-04-21] MEDS: ARIPiprazole 10 mg Tablet PO SCH (08:17)
[2017-04-21 13:28] VITALS: BP 141/88; PULSE 97; RESP 18
--- NOTE | 2017-04-21 14:06 | PROG NOTE ---
[address] [address] PROGRESS NOTE PATIENT: ERIKA PONCE : 1950 MR#: [id number] ADMIT: 04/06/2017 JOB ID: [id number] DATE: 04/21/2017 CHIEF COMPLAINT: "I need you to come to my room as one of my private areas. They are burning out of control." HISTORY OF PRESENT ILLNESS: As stated above, the patient was very inappropriate with myself and redirected consistently throughout the course of interview. She remains quite focused on some burning irritation in her perirectum and reportedly her urine was negative on both random screening and culture. I have discussed with nursing staff the possibility of utilization of nystatin powder which will be ordered today. The patient reportedly continues to be somewhat hypomanic on interaction with staff and peers. She has pressured speech. She makes very sexually inappropriate comments at times both to myself and other male staff. OBJECTIVE: On mental health examination, her demeanor is inappropriate. She was redirected and actually received commentary and apologized. Her speech is pressured. Her mood is euphoric. Her affect is elevated. Her thought process shows continuation of racing thoughts, random flight of ideas. She denied any evidence of active hallucinations, delusions, but has significant grandeur beliefs and often makes reference of her multiple billions of dollars. She was alert, oriented to time and place. Her attention and concentration are fleeting. Insight and judgment are poor. PHYSICAL EXAM: Vital signs of current. Temperature is 36.9, pulse 87, respirations 18, BP is 146/87. MEDICATION REVIEW: Includes: 1. Depakote 1500 mg ER q.h.s. 2. Abilify 20 mg q. a.m. 3. Robaxin 500 mg at h.s. p.r.n. 4. Percocet 1 tablet p.r.n. q. a.m. 5. Vitamin D3 1000 units daily. 6. Lipitor 20 mg daily. ASSESSMENT: AXIS I 1. Bipolar disorder, most recent episode manic with delusions. 2. Polysubstance use disorder including opiate prescription agents. 3. Neurocognitive disorder, probable. AXIS II Cluster B personality features. AXIS III 1. History of hyperlipidemia. 2. History of chronic pain. 3. Rule out vaginal yeast infection. AXIS IV Stressors are noted for chronic mental health issues, chronic substance use issues. AXIS V Global assessment of functioning of current 35. PLAN: 1. Recommendations for further titration of Depakote to 2000 mg q.h.s. 2. Depakote level to be drawn on Wednesday morning. 3. Applications for LR 90 with discharge on Wednesday for continuation of community based interventions of case management and medication management. 4. Continuation of Robaxin and Percocet for now with further tapering discontinuation of Percocet beginning tomorrow. I have agreed to continue her doses of Robaxin due to a significant history of chronic pain and muscle spasm. MTDD
--- NOTE | 2017-04-21 14:12 | NUR ---
Nursing Note [id number] Mood, Psychotic Sx S/O: Pt has a good appetite. Out in milieu with peers. Pleasant & cooperative with peers & staff. Conversation tracking tangential. Pt writing notes with wording that is difficult to understand although the writing is clear. Pt's brother called informing staff pt continues to talk about the cartel, having a lot of money, & having a big ranch. She c/o itching in her sonia area, but denies having any redness. Ibuprofen given upon request for this. A: Pt con't to be paranoid & delusional. P: Provide supportive environment. Monitor medications & effects.
[2017-04-21] MEDS: Nystatin 100,000 Unit/Gm 15 Gm Powder TOPICAL SCH ×2 (17:55→19:44)
--- NOTE | 2017-04-21 18:37 | NUR ---
S Day Shift Pt affect and behavior mostly unchanged from previous shifts. Pt maintained behavioral control throughout the shift. Pt affect appears mostly euthymic. Pt continues to occasionally endorse paranoid delusions about other patients. Pt spends most of the shift interacting with peers on the unit and participating in unit activities. Pt is mostly appropriate with staff and peers when active on the unit. Pt attended all group activities and participated actively. Pt attended all meals and ate approx 80% of all meals.
--- NOTE | 2017-04-21 19:45 | NUR ---
billing manager/Counselor: S: "I hurt so bad. I have to prove something to someone to get out of here." O: Patient slept 4.5 hours last night per staff. Patient denies S/I and H/I. She also denies auditory and visual hallucinations. Depression is 0/10 and anxiety is 4/10. When asked her mood, patient stated, "Pissed!" Patient did not discuss her mood any further. A: Patient is cooperative, unkept, disheveled, guarded, restricted affect, dysthymic, limited insight, limited judgment. P: Follow care plan, coordinate with out-patient providers.
[2017-04-21] MEDS: Divalproex (QD) 500 mg ER24 Tablet PO SCH (20:17)
--- NOTE | 2017-04-21 22:28 | NUR ---
NURSING NOTE [id number] Mood: "I would be better if I wasn't burning up" Affect: labile; pleasant at times-- other times suspicious and rude to staff Behavior: social off and on in the milieu. Asked for nystatin powder to apply to her pubic folds and perseverated on the notion that she needed a cooling substance to be applied there as well and requested numerous times to have a Lidoderm patch placed despite not having an order and the education provided regarding proper usage. She isolated to room after dinner. Thought processes: delusional and suspicious at times. Some grandiosity. Denies depression and SI. PRNs Vistaril 50 mg @ 15:49 Robaxin 500 mg @ 21:45
--- NOTE | 2017-04-22 04:29 | NUR ---
Nursing Noc I need to go with my brother to the bank, Im inheriting two maybe three osorio. "I don't trust anyone with millions or billions of dollars. Im inheriting land. I know where the donations are going, to get the vets off the street into place like this, but not have to worry about locking up crackers. Pt rambles on and on about different subjects, paranoid, and anxious. Pt noted to have poor sleep again this shift. Continuing to monitor mood behavior and emotional state. CP.
[2017-04-22] MEDS: Pantoprazole 20 mg ER24 Tablet PO SCH (08:03)
[2017-04-22] MEDS: ARIPiprazole 10 mg Tablet PO SCH (08:03)
[2017-04-22] MEDS: Nystatin 100,000 Unit/Gm 15 Gm Powder TOPICAL SCH ×2 (08:30→20:30)
--- NOTE | 2017-04-22 11:45 | NUR ---
Nursing Note [id number] Mood, Behavior S/O: Pt has good appetite. Pleasant & cooperative with peers & staff. Pt states she feels "pretty darn near perfect." Conversation tracking clear & organized with normal rate & rhythm. Pt active on unit. A: Pt is slowly improving. P: Provide supportive environment. Monitor medications & effects.
[2017-04-22 13:00] VITALS: BP 120/80; PULSE 105; RESP 16
--- NOTE | 2017-04-22 13:37 | PROG NOTE ---
[address] [address] PROGRESS NOTE PATIENT: ERIKA PONCE : 1950 MR#: [id number] ADMIT: 04/06/2017 JOB ID: [id number] DATE: 04/22/2017 CHIEF COMPLAINT: "I really want you to come into my room and smell it." This per patient report in reference to her concern of continuation of vaginal discharge, etc. HISTORY OF PRESENT ILLNESS: As stated above, the patient did meet with myself in the hallway. She indicated that she continues to have significant concerns of vaginal discharge and significant odor. I have redirected her consistently. She reportedly identified that she is not happy with her nystatin powder which was ordered by myself. Follow up outpatient medical care will be recommended for further clarification with discharge tomorrow. OBJECTIVE: On mental status examination, she remains quite delusional with a continuation of perseveration of beliefs that she is a billionaire. However, the patient has been showing significant gain of insight into the need of medication compliance and is willing to cooperate with LR 90 restrictions. OBJECTIVE: On mental status examination, the patient was cooperative, polite. She maintained good eye contact. Her speech was of normal tone, frequency and volume. Her mood was mildly elevated. Affect was congruent. Her thought process showed no evidence of racing thoughts. She continues to be somewhat loose and disorganized but is redirectable. Her thought content, she denied any evidence of current expressed suicidal or homicidal ideation. No evidence of paranoia. No evidence of hallucinations. She remains quite delusional with delusions of grandeur. She is alert, oriented to time and place. Her attention and concentration are fleeting. Insight and judgment are poor. PHYSICAL EXAMINATION: Vital signs are current. Temperature is 36.4, pulse 105, respirations 16, BP 120/80. MEDICATION REVIEW: Includes: 1. Depakote 2000 mg ER q.h.s. 2. Abilify 20 mg q. a.m. 3. Robaxin 500 mg q.h.s. 4. Vitamin D 3 q. a.m. 5. Lipitor 20 mg q. a.m. 6. Nystatin powder b.i.d. Patient has refused. ASSESSMENT: AXIS I 1. Bipolar disorder, most recent episode manic with psychotic features with primary fixed delusions of grandeur. 2. Polysubstance use disorder including THC, opiates and other prescription agents. AXIS II Cluster B personality features. AXIS III 1. History of chronic pain. 2. History of hyperlipidemia. AXIS IV Stressors are noted for transition of life, chronic mental health issues, chronic substance use issues. AXIS V Global assessment of functioning of current 35. PLANS: 1. Recommendations for continuation of all medications noted. 2. Depakote level, LFT and ammonia level to be drawn tomorrow. 3. Discharge with LR 90, recommendations including case management, medication management, and also a family practice referral due the patient's current concern of vaginal discharge and ongoing treatment for a history of hyperlipidemia. LUISD
--- NOTE | 2017-04-22 13:49 | PCM.DIMED ---
Discharge Instructions Date of Service Apr 22, 2017 Dates of Hospitalization April 06, 2017 at 13:54 Discharge Diagnosis Discharge Diagnosis Bipolar DO most recent manic with psychosis Diet Discharge Diet: No restrictions Activity Discharge Activity: No restrictions Yair Austin DO Apr 22, 2017 13:49
[2017-04-22] MEDS ORDERED: DIVA500T14 PO (13:54)
[2017-04-22] MEDS ORDERED: ROB500 PO (13:54)
[2017-04-22] MEDS ORDERED: ARIP20TA10 PO (13:54)
[2017-04-22] MEDS ORDERED: SIMV40TA5 PO (13:54)
--- NOTE | 2017-04-22 14:57 | NUR ---
Safety Grooving Machine Operator/Counselor S:"I couldn't be better." O: Patient did not express any SI or HI and did not express any auditory or visual hallucinations. Her anxiety was at a 3, or less, and she did not have any depression. A: Patient was cooperative but slightly tangential. P: Follow care plan and coordinate with outpatient providers. Patient is scheduled to be released on Wednesday,04/23/2017.
--- NOTE | 2017-04-22 18:40 | NUR ---
S Day Shift Pt affect and behavior mostly unchanged from previous shifts. Pt maintained behavioral control throughout the shift. Pt affect appears mostly euthymic. Pt continues to occasionally endorse paranoid delusions about other patients, though less so than noted on previous shifts. Pt spends most of the shift interacting with peers on the unit and participating in unit activities. Pt is mostly appropriate with staff and peers when active on the unit. Pt attended all group activities and participated passively. Pt attended all meals and ate approx 80% of all meals.
[2017-04-22] MEDS: Divalproex (QD) 500 mg ER24 Tablet PO SCH (21:22)
--- NOTE | 2017-04-22 22:25 | NUR ---
NURS Note [id number] Mood: :"I'm excited about leaving tomorrow." Denies anxiety and depression. Affect: Elevated. Thought Process/Content: "I'm going to stay up late, its my last night here." Mostly linear. Pt occasionally makes some bizarre and paranoid comments. "There is something wrong with this hospital, but I cant tell you about it." Denies AH, VH. Denies SI, HI. Behavior: Pt up in common areas most of shift. Interacting appropriately with staff and peers. Pt in bed at 2214. PRNs/NURS: Pt took 650 mg acetaminophen at 1953; 600 mg ibuprofen 1845; and 50 mg. hydroxyzine at 2224
[2017-04-22] MEDS: hydrOXYzine Pamoate 25 mg Capsule PO PRN (22:27)
[2017-04-23] MEDS: hydrOXYzine Pamoate 25 mg Capsule PO PRN (02:40)
--- NOTE | 2017-04-23 04:24 | NUR ---
nursing, nights, 11-7 s- pick an age and i'll write it down. you mean i don't have to write. i need another capsule. i'm angry at her. should i be angry with you. i just want to go back to my room. can i have a blanket. thank you. o- has appeared to sleep brief periods only. otherwise is talking to anyone who is available. received 50 mg of vistaril at 0230. became threatening after an interaction with another patient but was redirectable. is currently watching a relaxation tape. assessed q 15 minutes. a- inadequate sleep, responds well to staff reassurance and support, no apparent physical distress. p- monitor behavior/emotional state, quality, times and amount of sleep, use and effect of medication. david
[2017-04-23] MEDS: ARIPiprazole 10 mg Tablet PO SCH (07:59)
[2017-04-23] MEDS: Nystatin 100,000 Unit/Gm 15 Gm Powder TOPICAL SCH (07:59)
[2017-04-23] MEDS: Pantoprazole 20 mg ER24 Tablet PO SCH (07:59)
[2017-04-23 09:06] LABS: Bilirubin, Direct 0.2 mg/dL (0.0-0.3)
[2017-04-23 13:13] VITALS: BP 144/92; PULSE 80; RESP 14
--- NOTE | 2017-04-23 15:17 | NUR ---
Nursing: Day shift and discharge: Leesa was dressed neatly, alert and oriented as she came out for breakfast this a.m. She is aware that she will be discharged today. Lawyers went through discharge forms and information with Leesa. She was cooperative with process. Leesa left the unit, ambulatory, and accompanied by salesperson driver [id number]. Leesa denied anxiety, depression and suicidal ideation as she left. All outcomes met. Addendum: 04/23/17 at 1520 by AMRIT PLATT RN Amended: Links added.
--- NOTE | 2017-04-23 19:39 | NUR ---
store loss prevention manager/Counselor: S: "I need to pay some bills when I get home." O: Patient slept 1.25 hours last night per staff. Patient denies S/I and H/I. She also denies auditory and visual hallucinations. Depression is 0/10 and anxiety is 2/10. Out-patient appointment: [facility], 04/27/17 at 8:30am. A: Patient is cooperative, hopeful, fair insight, fair judgment. P: Follow care plan, coordinate with out-patient providers.
--- NOTE | 2017-04-23 23:31 | DIS ---
[address] [address] DISCHARGE SUMMARY PATIENT: ERIKA PONCE : 1950 MR#: [id number] ADMIT: 04/06/2017 JOB ID: [id number] DIS: 04/23/2017 ADMITTING DIAGNOSES: AXIS I 1. Preliminary substance-induced thought disorder with noted use history of tetrahydrocannabinol, alcohol and previous misuse of opiate prescriptions. 2. Rule out major depressive disorder with psychotic features. 3. Rule out neurocognitive disorder, not otherwise specified. AXIS II Deferred. AXIS III 1. Chronic pain. 2. Narcotic addiction. AXIS IV Moderate. AXIS V Global Assessment of Functioning current 30. DISCHARGE DIAGNOSES: AXIS I 1. Bipolar disorder, most recent episode manic with psychotic features. 2. Polysubstance use disorder including tetrahydrocannabinol and prescription opiates. 3. Neurocognitive disorder, not otherwise specified. AXIS II Deferred. AXIS III History of chronic pain. AXIS IV Stressors are noted for ongoing polysubstance use, chronic mental health issues. AXIS V Global Assessment of Functioning current 40. REASON FOR ADMISSION: The patient was a 66-year-old female who reportedly was admitted under IK status, post stabilization on the medical unit. During the hospital course. the patient's history was reviewed with continuance of Abilify eventually titrated to 20 mg daily. Introductions of Depakote did show significant improvement with the patient's mood stability and evidence of hypomania. Throughout the hospital course, the patient was agreeable to taper and discontinue previous prescription agents of narcotics based on her significant history of misuse and overuse. She openly identified to significant long-term history of addiction dating back to her early 20s and was encouraged to limit her usage of cannabis post hospitalization. Throughout hospital course, the patient did require redirection by myself and many other members of the treatment team due to her inappropriate comments, often very sexualized. She did experience significant symptoms of vaginal candidiasis and was given a prescription of nystatin powder, however, essentially refused to treat. Throughout the hospital course, the patient was agreeable for applications of LR 90 to improve the patient's compliance with medication management and continued case management services. The patient did remain somewhat grandiose and delusional, identifying that she has billions of dollars in the bank. She identified that she needed to get to a [employer] within the next week on the day of discharge, in order to make sure that her account is in full. She showed no evidence of imminent danger to herself and a willingness to continue to take her medications. There were no grounds to continue her hospitalization based on such. CONDITION AT TIME OF DISCHARGE: On mental status exam, she was cooperative, polite. She maintained good eye contact throughout. Her sleep patterns were stabilized. Her speech was pressured to some degree and she was much more redirectable. Her mood remained mildly euphoric. Her affect was congruent. Her thought process showed no evidence of racing thoughts, flight of ideas, loose or disconnected thinking. She continued to be somewhat tangential and grandiose and maneuvering. Thought content, she denied any evidence of current suicidal, homicidal ideation. There is no evidence of active hallucinations. She continues to be significantly delusional with her grandiosity and belief that she is a billionaire. She was alert, oriented to time and place. Her attention and concentration were limited. Insight and judgment are poor. IMPRESSIONS: AXIS I 1. Bipolar disorder, most recent episode manic with delusional beliefs. 2. Polysubstance use disorder including cannabis and prescription opiates. 3. Neurocognitive disorder, not otherwise specified. AXIS II Cluster B personality features. AXIS III 1. History of hypertension. 2. History of gastroesophageal reflux. 3. History of vaginal candidiasis. AXIS IV Stressors were noted for chronic mental health issues, chronic substance use issues. AXIS V Global Assessment of Functioning current 40. PLANS: 1. Recommendations for continuation of pursuit of case management services through [facility]. Appointments are scheduled at this point for both case management and medication management. 2. Continuation of Abilify 20 mg q.a.m., one month supply, no refills. Reason for usage mood stabilizer. Depakote 2000 mg q.h.s., one month supply, no refills. Reason for usage mood stabilizer. 3. Continuation of Robaxin 500 mg at h.s. p.r.n. for spasm, one month supply, no refills. Reason for usage antispasmodic. 4. Patient was encouraged to follow up with her PCP in reference to her current concerns of vaginal issues. Patient has declined refill on the nystatin powder. 5. Patient was recommended to abstain from any future usage of marijuana or other substances. 6. Recommended followup laboratory testing of Depakote, LFT and ammonia levels in approximately one month for routine monitoring purposes. Please note that her last Depakote level was stable at 119 on April 23, the day of discharge.
== END 2017-04-23 12:42 | disposition home or self-care (01) | DRG 885 ==
LOC: EDUNIT# 15:42 → EDBD 15:42 → SED 15:42 → MHC 04-06 13:54
PROVIDERS: ADMIT Psychiatry & Neurology Psychiatry; ATTEND Psychiatry & Neurology Psychiatry
DX: F31.2 Bipolar disorder, current episode manic severe with psychotic features (principal); F99 Mental disorder, not otherwise specified; F17.210 Nicotine dependence, cigarettes, uncomplicated; R51 Headache; Z60.4 Social exclusion and rejection; F12.90 Cannabis use, unspecified, uncomplicated; F11.90 Opioid use, unspecified, uncomplicated; F60.89 Other specific personality disorders; G89.29 Other chronic pain; N89.8 Other specified noninflammatory disorders of vagina

== ENCOUNTER 2017-05-12 13:43 | Inpatient (IN) | payer MEDICARE, MEDICAID, OTHER ==
[~2017-05-12] VITALS: Ht 157.5 cm; Wt 57.7 kg
[~2017-05-12 13:43] MED LIST changes: +ARIP20TA10 PO; -ARNI120T TP; +DIVA500T14 PO; -LIDO113G3 TP; -MELA5TAB14 PO; -NIC7 TRANSDERM; -NICO1PAT5 TRANSDERM; -NICO1PAT6 TOPICAL; -NICO2LOZ47 BUCCAL; -OMEP20CA11 PO; -OXYC1TAB24 PO; +ROB500 PO; -TERB15CR18 TP
[2017-05-12] MEDS ORDERED: ARIP20TA8 PO (13:49)
[2017-05-12 14:01] VITALS: BP 135/102; PULSE 105; RESP 20; O2SAT 97
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
[2017-05-12 15:32] LABS: BASOPHILS % (AUTO) 0.2 % (0-3); EOSINOPHILS % (AUTO) 0.4 % (0-5); MONOCYTES % (AUTO) 7.5 % (4-12); Mean Corpuscular Hemoglobin 29.2 pg (27.0-35.0); Mean Corpuscular Volume 84.6 fL (81-100); NEUTROPHILS % (AUTO) 68.9 % (40-74); Platelet Count 298 bil/L (150-400)
[2017-05-12 18:09] VITALS: BP 146/97; PULSE 85; RESP 16; O2SAT 97
[2017-05-12] MEDS ORDERED: OLANZapine Zydis ODT 5 mg Tablet PO ONE ×2 (19:50→23:35)
[2017-05-12] MEDS: Divalproex (QD) 500 mg ER24 Tablet PO SCH ×2 (22:42→23:19)
[2017-05-12] MEDS ORDERED: Benzocaine-Menthol Lozenge 2/Pkg PO PRN (23:10)
[2017-05-12] MEDS ORDERED: Alum-Mag Hydrox-Simeth 30 mL Suspension PO PRN (23:10)
[2017-05-12] MEDS: LORazepam 2 mg Tablet PO PRN (23:46)
--- NOTE | 2017-05-13 00:07 | NUR ---
behavior/meds: pt. came to floor from ER amped up, psychotic w/ random statements about God, killing people, Elio, etc. Pt. has sitter outside her room, pt. was cooperative about taking meds, given po ativan, zyprexa, robaxin, depakote crushed and pt. took in pudding. Pt. has difficulty swallowing large pills.
--- NOTE | 2017-05-13 05:39 | NUR ---
sleep behavior: pt. given jie saunders atmariann, pt. slept well through the night.
[2017-05-13] MEDS: ARIPiprazole 10 mg Tablet PO SCH ×3 (08:30→09:26)
[2017-05-13] MEDS: LORazepam 2 mg Tablet PO PRN ×3 (10:58→17:43)
--- NOTE | 2017-05-13 13:16 | NUR ---
NURS NOTE DAYSHIFT Mood: Irritable. Affect: Elevated, suspicious. Thought Process/Content: "The convalescent sitter is going to pick me up and take me outta here . . . we have to filler picker two people . . . one day, one day." Disorganized. Flight of ideas. Delusional content, bizarre and paranoid. Rapid, pressured speech. Behavior: Intrusive with other patients. Argumentative and uncooperative with staff. Appears to be responding to internal stimuli. Pt sleeping from 1200 to present. PRNs/NURS: PRN acetaminophen 650 mg and lorazepam 2 mg at 1045. Addendum: 05/13/17 at 1334 by ELAINE FUETNES RN Pt observed going into other pts rooms and going through other pt's papers and belongings.
--- NOTE | 2017-05-13 17:44 | NUR ---
Nurses PRN Patient received Ativan 2mg for agitation,inability to follow directions and attempts at entering peers' rooms and checking doors,will assess response.
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
--- NOTE | 2017-05-13 19:07 | NUR ---
Nurses Note evening Patient has remained disorganized,confused,intrusive with peers. Her thoughts are scattered,illogical and nonsensical. Patient has been frequently agitated and ornery requiring firm redirection. Her hygiene has been poor,her appetite has been fair. Patient will be monitored q 15min. checks for safety and support. Addendum: 05/13/17 at 1932 by TOM MCDUFFIE RN Amended: Links added. Addendum: 05/13/17 at 2310 by TOM MCDUFFIE RN Nurses Note Evening Patient has been asleep in the later part of the shift after receiving Ativan 2 mg at 1744 for agitation and inability to follow directions. Patient has had difficulties swallowing Depakote Tablets which were changed to Depakote sprinkles. Will continue to monitor q 15min. checks for safety and support.
--- NOTE | 2017-05-13 19:43 | NUR ---
Case Management/Counseling: S: "The sign says is sleeping." Patient was referring to another patient's room door when this patient was asked to come out of another patient's room. O: Patient slept 5.5 hours last night per staff. Patient denies S/I and H/I. She denies auditory and visual hallucinations. Depression and anxiety were not rated. Patient paced up and down the halls going in other patients rooms and trying to elope from unit by trying to open unit doors. A: Patient is uncooperative, distactible, threatening, labile, anxious, suspicious, disorganized, tangential, paranoid, poor insight, poor judgment. P: Follow care plan, coordinate with out-patient providers, monitor behavior.
[2017-05-13] MEDS ORDERED: Divalproex (QD) 500 mg ER24 Tablet PO SCH (21:00)
[2017-05-13] MEDS ORDERED: Divalproex Sprinkles 125 mg ER12 Capsule PO SCH (22:27)
[2017-05-13] MEDS: Divalproex Sprinkles 125 mg ER12 Capsule PO SCH (23:02)
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
[2017-05-14] MEDS: LORazepam 2 mg Tablet PO PRN ×3 (03:39→19:09)
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
[2017-05-14] MEDS: ARIPiprazole 10 mg Tablet PO SCH (06:02)
[2017-05-14] MEDS: Divalproex Sprinkles 125 mg ER12 Capsule PO SCH ×2 (08:04→19:10)
--- NOTE | 2017-05-14 14:27 | NUR ---
Nursing Notes (This note was made by Gustavo Marr RN, I currently do not have access to Mental Health Unit patient list) S-"I need to wear red, white, and blue. Good for the skin. I need to find a baby sister for the children." O-Pt. gets easily agitated when trying to communicate something across. Pt. states having anxiety and depression. Pt. is making no sense, confused, and rambling most of the time. Not able to stay on track of conversation. Pt. ate about half of breakfast and half of lunch. At about 0840 Pt. began banging on the door to the nurses station asking to be let in for a shower. In the shower at ~0855 Pt. was asking for a protein shake. Pt. unable to keep eyes open at around 1230 and appears extremely groggy and sleepy Pt. taken into room for a nap. Pt. woke up from her nap at ~1330 and is in out and of her room. A-Pt. appear extremely tired, unable to keep eyes open at times. When standing Pt. tends to lean forward, slight unsteadiness on feet. Speech pattern is mumbling, quite, and confusing. P-Follow plan of care, monitor behavior, monitor side effects of medication, safety to Pt. and others. (This note was made by Gustavo Marr RN, I currently do not have access to Mental Health Unit patient list)
--- NOTE | 2017-05-14 16:53 | NUR ---
[facility] Day Shift Pt has difficulty maintaining behavioral control throughout the shift. Pt affect appears flat, occasionally intense. Pt spends most of the shift wandering the unit or resting in her room. Pt is not appropriate with staff or peers when active on the unit and requires frequent redirection. Pt is confrontational and disrespectful of other's personal space. Pt appears unsteady while ambulating. Pt did not attend community meeting or group activities throughout the shift. Pt has attended all meals at this time and has eaten approx 50% of all meals.
--- NOTE | 2017-05-14 18:33 | PCM.PNPSY ---
Subjective Date of Service May 14, 2017 Subjective The patient was angry, irritable and disorganized. When showed her door with her name on it she ripped the paper off the door. The patient remains intrusive although seems to be calming somewhat. Sleep: 7 hours Appetite: Eating Suicidal and homicidal ideation: Denies Auditory hallucinations: Unable to assess Visual hallucinations: Unable to assess Other Psychotic Symptoms: Rambling and disorganized Anxiety/Depression: Unable to assess Current Medications Current Medications Acetaminophen 650 mg Q4H PRN PO Last administered on 05/13/17 11:02; Admin Dose 650 MG; Start 05/12/17 at 23:10 Aripiprazole 20 mg DAILY PO Last administered on 05/14/17 06:02; Admin Dose 20 MG; Start 05/13/17 at 08:30 Divalproex Sodium 500 mg DAILY PO Last administered on 05/14/17 08:04; Admin Dose 500 MG; Start 05/14/17 at 08:30 Divalproex Sodium 1,000 mg HS PO Last administered on 05/13/17 23:02; Admin Dose 1,000 MG; Start 05/13/17 at 22:28 Divalproex Sodium 2,000 mg HS PO Last administered on 05/12/17 22:42; Admin Dose 2,000 MG; Start 05/12/17 at 22:42; Stop 05/13/17 at 18:00; Status DC Lorazepam 2 mg Q4H PRN PO Last administered on 05/14/17 10:59; Admin Dose 2 MG ; Start 05/12/17 at 23:35 Methocarbamol 500 mg HS PO Last administered on 05/12/17 23:19; Admin Dose 500 MG; Start 05/12/17 at 22:43 Olanzapine 10 mg NOW ONCE PO Last administered on 05/12/17 23:47; Admin Dose 10 MG; Start 05/12/17 at 23:35; Stop 05/12/17 at 23:36; Status DC Olanzapine 10 mg ONCE ONCE PO Last administered on 05/12/17 20:05; Admin Dose 10 MG; Start 05/12/17 at 19:50; Stop 05/12/17 at 19:51; Status DC Mental Status Exam Appearance: Unkept Attitude: Uncooperative, Hostile/Threatening Behavior: Stereotypic movements Affect: Labile Mood: Irritable Thought Process/Associations: Loose, Tangential Speech Production: Abundant Speech Rate: Normal Speech Articulation: Normal Thought Content: Somatic preoccupation, Perseveration Danger to Self/Suicidal Ideati: None Danger to Others: None Consciousness: Alert Orientation: Person, Place Memory: Untestable Estimate Intellectual Function: Average Basis for IQ estimate: Word use/vocabulary, Educational history, Employment history Attention/Concentration & Cogn: Impaired Insight: Unable to assess Judgement: Unable to assess Result Diagram: 05/12/17 1520 05/12/17 1520 Mental Health Plan The patient is a 66-year-old female, who has a history of prior independent living in her apartment and who was initially admitted in March and discharged in April on a 90-day less restrictive order. The patient has been medication nonadherent and has become increasingly confused and paranoid, by report. This episode appears to be very similar to her last episode with disorganized thought processes, mood lability and irritability. The patient is willing to take aripiprazole and a somewhat lower dose of Depakote. Logan Logan I 1. Bipolar disorder, most recent episode, manic, with psychotic features. 2. Polysubstance use disorder including tetrahydrocannabinol, opiates and cocaine. 3. Neurocognitive disorder, not otherwise specified. Logan II Deferred. Logan III History of chronic pain, reflux, and hypertension. Logan IV Chronic mental health issues, limited social support. Logan V Global assessment of functioning 25. Treatments 1. The patient is admitted to the inpatient unit and will be provided a safe and secure environment. 2. The patient is currently denying active suicidality and is not in need of a one-to-one at this time. 3. The patient is encouraged to participate to group and milieu activities. 4. The patient will be seen by the treatment team on a daily basis to assess symptom side effects, response to treatment. 5. The patient will be restarted on aripiprazole 20 mg daily. 6. The patient will be placed on divalproex sprinkles 500 mg daily and 1000 mg nightly. 7. Lorazepam 2 mg q.4 h. p.r.n. anxiety or agitation. 8. Methocarbamol 500 mg nightly. 9. Anticipated length of stay is 14 days. David Garrett MD May 14, 2017 18:33
--- NOTE | 2017-05-15 01:04 | NUR ---
Nursing Noc GLF in hallway at 2345 unwitnessed. Pt on Q15 minute safety checks and observed just two minutes prior to fall to be sleeping. Pt found in hallway sitting and asking for help up. Pt reported she had fallen and hit the back of her head and reported lt wrist pain. Assessment did not reveal further injury, zero point tenderness to head or report of further discomfort elsewhere. . Pt able to get to feet with minimal assist and ambulated to bed. Ice applied to lt wrist. Zero neurological changes observed. called and orders received for Xray and CT. 1:1 sitter initiated
[2017-05-15] MEDS: LORazepam 2 mg Tablet PO PRN (06:37)
[2017-05-15] MEDS: Divalproex Sprinkles 125 mg ER12 Capsule PO SCH ×2 (08:00→21:37)
[2017-05-15] MEDS: ARIPiprazole 10 mg Tablet PO SCH (08:00)
--- NOTE | 2017-05-15 09:04 | DRSVH ---
PROCEDURE: CT BRAIN WITHOUT CONTRAST ([id number]) INDICATIONS: fall TECHNIQUE: Noncontrast 4.5 mm thick angled axial sections acquired from the foramen magnum to the vertex, with c oronal reformats. COMPARISON: [facility], CT, CT BRAIN WO CON, 04/05/2017, 16:36. FINDINGS: Image quality: Excellent. CSF spaces: Basal cisterns are patent. No extra-axial fluid collections. The ventricles are symmet lis in size and shape. There is mild cerebral volume loss, with resultant ventricular and sulcal pro minence. Brain: No intracranial hemorrhage, mass, or mass effect. There are a few subcortical, periventricul ar and deep white matter hypodensities consistent with mild chronic small vessel ischemic changes. T here is intracranial internal carotid artery atherosclerosis. Skull and face: Calvarium and visualized facial bones are intact, without suspicious lesions. Sinuses: Visualized sinuses and mastoids are clear. IMPRESSION: 1. No acute intracranial abnormality. 2. Mild chronic white matter small vessel ischemic changes and cerebral volume loss. Dictated by: Fernandez Miller M.D. on 05/15/2017 at 8:55 Approved by: Fernandez Miller M.D. on 05/15/2017 at 8:57
--- NOTE | 2017-05-15 09:11 | DRSVH ---
PROCEDURE: CT CERVICAL SPINE WITHOUT CONTRAST ([id number]) INDICATIONS: fall TECHNIQUE: Noncontrast 3 mm thick sections acquired from the skull base to the T4 level. Sagittal and coronal r eformats were then constructed. For radiation dose reduction, the following was used: automated exp osure control, adjustment of mA and/or kV according to patient size. COMPARISON: [facility], CT, C-SPINE W/O CONTRAST, 11/22/2012, 10:06. FINDINGS: Image quality: There is mild motion artifact and mild streak artifact from patient's surgical hardwar e. Bones: No acute fractures or dislocations. There is minimal anterolisthesis at C2-C3 and C7-T1 whic h appears similar to the prior study. A mild leftward curvature is present at the cervicothoracic ju nction. There are postsurgical changes consistent with anterior fixation and fusion from C5-C7 redem onstrated. The surgical hardware appears intact. There is mild multilevel disc space narrowing else where in the cervical spine. There is also mild multilevel level facet arthropathy. Visualized supe rior ribs are intact. Soft tissues: Prevertebral soft tissues are normal in thickness. There is increased linear calcific ation anterior to the patient's surgical hardware at C7 likely representing dystrophic calcification. No paravertebral hematomas. No apical pneumothoraces. IMPRESSION: 1. No definite acute fracture or subluxation. 2. Postsurgical changes consistent with prior ACDF redemonstrated at C5-C7. 3. Minimal anterolisthesis redemonstrated at C2-C3 and C7-T1. Dictated by: Fernandez Miller M.D. on 05/15/2017 at 8:57 Approved by: Fernandez Miller M.D. on 05/15/2017 at 9:03
[2017-05-15] MEDS ORDERED: risperiDONE 1 mg Tablet ONE (09:33)
[2017-05-15] MEDS ORDERED: LORazepam 1 mg Tablet PO PRN ×2 (09:34→12:35)
[2017-05-15] MEDS: risperiDONE 1 mg Tablet PO ONE ×2 (09:34→09:40)
[2017-05-15] MEDS ORDERED: risperiDONE 1 mg Tablet PO PRN (09:40)
--- NOTE | 2017-05-15 10:11 | DRSVH ---
PROCEDURE: X-RAY LEFT WRIST COMPLETE, MINIMUM THREE VIEWS ([id number]) INDICATIONS: fall TECHNIQUE: 4 views of the wrist were acquired. COMPARISON: None. FINDINGS: Bones: There is mild irregularity of the radial aspect of the trapezoid. Elsewhere, no fractures or dislocations. No suspicious bony lesions. Scaphoid view: The scaphoid appears intact. Soft tissues: No suspicious soft tissue calcifications. IMPRESSION: 1. Mild irregularity along the radial aspect of the trapezoid. Recommend correlation with clinical exam. If there is clinical suspicion for fracture, further evaluation may be obtained with CT. Dictated by: Fernandez Miller M.D. on 05/15/2017 at 10:00 Approved by: Fernandez Miller M.D. on 05/15/2017 at 10:03
--- NOTE | 2017-05-15 13:09 | NUR ---
NURS Note DAYSHIFT Orientation: Oriented to person only. "It's the . . . November . . . . 1949." Mood: Unable to assess. Affect: Irritable. Thought Process/Content: "Do you want to know a secret . . . the whole world is on my card . . ." Delusional, paranoid and grandiose. Flight of ideas. Difficult to follow. Behavior: Pt up at start of shift. Disorganized, difficult to focus and redirect. Pt swatted and then shoved 1:1. Directed pt to bed in low stimulation room separate from the milieu with 1:1 at the open door 0930-present. PRNs/NURS: 1:1 with pt. Fell at 0345, x-ray and CT taken. has ordered soft wrist split.
[2017-05-15 15:48] VITALS: BP 126/87; PULSE 81; RESP 16
--- NOTE | 2017-05-15 15:59 | NUR ---
Hospice Community Liaison/Counselor S:"I hovered a cat. There is green stuff filling up my teeth." O: Patient was in seclusion. She was unable to answer any questions in regards to SI, HI, depression and anxiety, and denied any AVH. A: Patient was very delusional and grandiose. She stated it was December 14, 1949. She was very difficult to follow. P: Follow care plan and coordinate with outpatient providers.
--- NOTE | 2017-05-15 16:08 | NUR ---
Air Pollution Analyst/Counselor S:" I don't eat the food that's too bitter or too salty." O: Patient denies any SI and HI, no AVH, no anxiety or depression. A: Patient drank some milk for dinner last night, and had her Ensure shake. She stated that she's eating but no the foods that are too salty or too bitter. She stated that she did leave her room last night to walk, but has not left her room today. When the patient was informed about a possible room change, she became agitated and stated that she would not leave and that the room she was in was just fine for her. She was mostly cooperative, P: Follow care plan and coordinate with outpatient providers.
--- NOTE | 2017-05-15 17:01 | PCM.PNPSY ---
Subjective Date of Service May 15, 2017 Subjective The patient became increasingly disorganized over night and fell. Head CT and cervical spine were negative. Hand x-ray was equivocal. The patient has become increasingly intrusive with peers and aggressive toward staff, striking them. She was placed in an area of reduced stimulation with a one-to-one. The patient received risperidone 0.5 mg 2 with lorazepam. She has calmed somewhat but remains quite disorganized. She reported that she was "hovering a cat." She also stated "I feel safe except for my teeth fill up with green." She stated that the date was 12/14/1949. She stated her dirty was 1950. She was not aware of where she was. Sleep: 3-3-1/2 hours Appetite: "Way better" Suicidal and homicidal ideation: Denies Auditory hallucinations/Visual hallucinations: "I feel guilt... I was the only one checking out my eyeballs." Other Psychotic Symptoms: Disorganization as above Current Medications Current Medications Divalproex Sodium 500 mg DAILY PO Last administered on 05/15/17 08:00; Admin Dose 500 MG; Start 05/14/17 at 08:30 Divalproex Sodium 1,000 mg HS PO Last administered on 05/14/17 19:10; Admin Dose 1,000 MG; Start 05/13/17 at 22:28 Risperidone 0.5 mg OT ONCE PO Last administered on 05/15/17 09:34; Admin Dose 0.5 MG; Start 05/15/17 at 09:40; Stop 05/15/17 at 09:41; Status DC Risperidone 0.5 mg OT PRN PO Last administered on 05/15/17 11:41; Admin Dose 0.5 MG; Start 05/15/17 at 09:40; Stop 05/15/17 at 11:41; Status DC Mental Status Exam Vital Signs Vital Signs Date Time Temp Pulse Resp B/P Pulse Ox O2 Delivery O2 Flow Rate FiO2 05/15/17 15:48 36.0 81 16 126/87 Appearance: Unkept Attitude: Uncooperative, Hostile/Threatening Behavior: Stereotypic movements Affect: Labile Mood: Irritable Thought Process/Associations: Loose, Tangential Speech Production: Abundant Speech Rate: Lags/Latency Speech Articulation: Slurred Thought Content: Somatic preoccupation, Suspicious, Perseveration Danger to Self/Suicidal Ideati: None Danger to Others: None Consciousness: Somnolent Orientation: Person Memory: Untestable Estimate Intellectual Function: Average Basis for IQ estimate: Word use/vocabulary, Educational history, Employment history Attention/Concentration & Cogn: Impaired Insight: Unable to assess Judgement: Unable to assess Result Diagram: 05/12/17 1520 05/12/17 1520 Mental Health Plan The patient is a 66-year-old female, who has a history of prior independent living in her apartment and who was initially admitted in March and discharged in April on a 90-day less restrictive order. The patient has been medication nonadherent and has become increasingly confused and paranoid, by report. This episode appears to be very similar to her last episode with disorganized thought processes, mood lability and irritability. The patient became more disorganized overnight and may be experiencing some disinhibition from lorazepam. She appeared to respond with some improved organization with low- dose risperidone. She has almost been secluded numerous occasions due to antagonizing peers and going into their rooms. [place] Husser I 1. Bipolar disorder, most recent episode, manic, with psychotic features. 2. Polysubstance use disorder including tetrahydrocannabinol, opiates and cocaine. 3. Neurocognitive disorder, not otherwise specified. [place] II Deferred. Husser III History of chronic pain, reflux, and hypertension. [place] IV Chronic mental health issues, limited social support. Huss[place] V Global assessment of functioning 25. Treatments 1. The patient is admitted to the inpatient unit and will be provided a safe and secure environment. 2. The patient is currently denying active suicidality and is not in need of a one-to-one at this time. 3. The patient is encouraged to participate to group and milieu activities. 4. The patient will be seen by the treatment team on a daily basis to assess symptom side effects, response to treatment. 5. The patient will be restarted on aripiprazole 20 mg daily. 6. The patient will be placed on divalproex sprinkles 500 mg daily and 1000 mg nightly. 7. Reduce lorazepam to 1 mg 3 times a day as needed. 8. Risperidone 0.5 -1 mg every 6 hours as needed for severe paranoia/ agitation 9. Methocarbamol 500 mg nightly. 10. Anticipated length of stay is 14 days. David Garrett MD May 15, 2017 17:01
--- NOTE | 2017-05-15 17:06 | NUR ---
Observations 899 - 2129 Pt has had 1:1 due to being a falls risk. Pt has been labile, irritable, disorganized. delusional and intrusive. Pt has had difficulty maintaining behavioral control today. Pt is not appropriate with staff or peers and needs constant staff redirection. Pt was offered snack but she declined. Pt ate about 25% of her meals. Pt is inappropriate for groups and unit activities at this time. Pt is confrontational and disrespectful when it comes to others personal space. Pt was observed every 15 minutes through the night as ordered.
[2017-05-15] MEDS: risperiDONE 1 mg Tablet PO PRN (18:32)
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
[2017-05-16] MEDS: risperiDONE 1 mg Tablet PO PRN (06:02)
--- NOTE | 2017-05-16 06:40 | NUR ---
Sleep Pt had periods of sleep. She continues confused and complaining of pain while awake. She slept a total of 5.5 hours. She received Tylenol 650 mg po prn for pain and Risperdal 1mg po prn for tangential statements. Pt irritable upon interaction with staff.
[2017-05-16] MEDS: Divalproex Sprinkles 125 mg ER12 Capsule PO SCH ×2 (08:05→20:10)
[2017-05-16] MEDS: ARIPiprazole 10 mg Tablet PO SCH ×2 (08:05→10:15)
--- NOTE | 2017-05-16 14:56 | NUR ---
Nursing Notes [id number] (This note was made by Gustavo Marr RN, I currently do not have access to Mental Health Unit patient list) S- "I am not taking that medication. The doctor knows I am not supposed to be on abilify. It gets me all whacky doodled in the head." O- Pt. appears to be steady on her feet and when ambulating she has her eyes closed most of the time. Ambulates with arms outreaches at times. Appropriate clothing but hair no kept well. Pt. is still easily agitated with staff. A-Pts. gait appears steadier than yesterday, Pt. has a 1:1 due to some history of aggressiveness with staff. Pt. today still get easily agitated with staff. Pt. appears to be still confused trying to open the door to the nurses station thinking it was her room. When Pt. was instructed to take the blanket to her room Pt. did not where her room was. Pt. was given Tylenol PO PRN 650mg at ~1220 for left shoulder pain. Pt. states she fell a couple days ago getting out of her car chasing a rabbit and sprained her ankle, and wrist but complained of left shoulder pain only 5/10. P-Follow plan of care, monitor behavior, monitor side effects of medication, safety to Pt. and others. (This note was made by Gustavo Marr RN, I currently do not have access to Mental Health Unit patient list)
[2017-05-16 16:33] VITALS: BP 120/88; PULSE 90; RESP 16
--- NOTE | 2017-05-16 18:11 | NUR ---
Observations 00 - 2129 Pt has had 1:1 due to being a falls risk. Pt affect and mood much improved from yesterday. Pt has maintained behavioral control today. Pt has been appropriate with staff or peers. Pt ate snack. Pt attended meals in D.R. and ate about 75% of her meals. Pt is inappropriate for groups and unit activities at this time. Pt attended community meeting and set a daily goal. Pt was observed every 15 minutes through the night as ordered.
[2017-05-16] MEDS: risperiDONE 1 mg Tablet PO SCH (20:11)
--- NOTE | 2017-05-16 23:40 | PCM.PNPSY ---
Subjective Date of Service May 16, 2017 Subjective Patient released from seclusion. Patient much less agitated today and more oriented. Patient reporting it is [birth year] but 1949. She is aware that she was born in 1950. Sleep: 5.5 hours Appetite: eating Suicidal and homicidal ideation: denies Auditory hallucinations: denies Visual hallucinations: denies Other Psychotic Symptoms: disorganized, still paranoid Current Medications Current Medications Risperidone 0.5 mg OT ONCE PO Last administered on 05/15/17 09:34; Admin Dose 0.5 MG; Start 05/15/17 at 09:40; Stop 05/15/17 at 09:41; Status DC Risperidone 0.5 mg OT PRN PO Last administered on 05/15/17 11:41; Admin Dose 0.5 MG; Start 05/15/17 at 09:40; Stop 05/15/17 at 11:41; Status DC Risperidone 0.5-1mg po q6hr prn severe/ psycho... Q6 PRN PO Last administered on 05/16/17 06:02; Admin Dose 1 MG; Start 05/15/17 at 12:35 Risperidone 1 mg BID PO Last administered on 05/16/17 20:11; Admin Dose 1 MG; Start 05/16/17 at 20:30 Mental Status Exam Vital Signs Vital Signs Date Time Temp Pulse Resp B/P Pulse Ox O2 Delivery O2 Flow Rate FiO2 05/16/17 16:33 36.5 90 16 120/88 Appearance: Unkept Attitude: Cooperative (more), Guarded Behavior: Stereotypic movements Affect: Restricted Mood: Irritable Thought Process/Associations: Loose, Tangential Speech Production: Normal Speech Rate: Normal Speech Articulation: Slurred (mild) Thought Content: Somatic preoccupation, Suspicious, Perseveration Danger to Self/Suicidal Ideati: None Danger to Others: None Hallucinations: Auditory (Denies), Visual (Denies) Consciousness: Alert Orientation: Person, Date (1950) Memory: Untestable Estimate Intellectual Function: Average Basis for IQ estimate: Word use/vocabulary, Educational history, Employment history Attention/Concentration & Cogn: Impaired Insight: Unable to assess Judgement: Unable to assess Result Diagram: 05/12/17 1520 05/12/17 1520 Mental Health Plan The patient is a 66-year-old female, who has a history of prior independent living in her apartment and who was initially admitted in March and discharged in April on a 90-day less restrictive order. The patient has been medication nonadherent and has become increasingly confused and paranoid, by report. This episode appears to be very similar to her last episode with disorganized thought processes, mood lability and irritability. The patient became more disorganized overnight and may have experienced some disinhibition from lorazepam. She appears improved with low dose lorazepam and risperidone. Patient still disorganized and needing 1:1 to prevent intrusion with peers. Patient's wrist with worsening ecchymosis. [place] I 1. Bipolar disorder, most recent episode, manic, with psychotic features. 2. Polysubstance use disorder including tetrahydrocannabinol, opiates and cocaine. 3. Neurocognitive disorder, not otherwise specified. [place] II Deferred. [place] III History of chronic pain, reflux, and hypertension. [place] IV Chronic mental health issues, limited social support. [place] V Global assessment of functioning 25. Treatments 1. The patient is admitted to the inpatient unit and will be provided a safe and secure environment. 2. The patient is currently denying active suicidality and is not in need of a one-to-one at this time. 3. The patient is encouraged to participate to group and milieu activities. 4. The patient will be seen by the treatment team on a daily basis to assess symptom side effects, response to treatment. 5. The patient will be restarted on aripiprazole 20 mg daily. 6. The patient will be placed on divalproex sprinkles 500 mg daily and 1000 mg nightly. 7. Reduce lorazepam to 1 mg 3 times a day as needed. 8. Risperidone 0.5 -1 mg every 6 hours as needed for severe paranoia/ agitation 9. Discontinue aripiprazole 10. Risperidone 1mg po bid 11. Methocarbamol 500 mg nightly. 12. Anticipated length of stay is 14 days. David Garrett MD May 16, 2017 23:40
--- NOTE | 2017-05-17 05:16 | NUR ---
Nursing Note Machine Joint Cutter 11pm to 7am Pt asleep at start of shift. Awoke at 0300 requesting medication for pain to tail bone and left wrist. Pt given Tylenol 650mg with good effect. Pt able to get back to sleep and slept the remainder of the shift. Pt monitored with q15 min face checks for safety, location and accountability
[2017-05-17] MEDS: risperiDONE 1 mg Tablet PO SCH ×2 (08:01→21:09)
[2017-05-17] MEDS: Divalproex Sprinkles 125 mg ER12 Capsule PO SCH ×2 (08:02→21:09)
--- NOTE | 2017-05-17 08:51 | DRSVH ---
PROCEDURE: CT WRIST LEFT W/O CONTRAST ([id number]) INDICATIONS: 66 year-old female with left wrist bruising and swelling, and possible trapezoid fractur e on plain films. TECHNIQUE: Noncontrast 1 mm axial sections acquired through the carpal bones, with coronal and sagittal reformat s. For radiation dose reduction, the following was used: automated exposure control, adjustment of mA and/or kV according to patient size. COMPARISON: [facility], CR, XR WRIST 3VW LT, 05/15/2017, 1:29. FINDINGS: Image quality: Excellent. Bones: There is a minimally displaced subcortical fracture deep to the fourth extensor tendon compart ment (axial image 100), on the ulnar aspect of an intact Marylin's tubercle. The distal ulna appears i ntact. Carpal bones appear intact and normally aligned. Specifically, no trapezoid fractures identifi ed. No suspicious lytic or blastic bony lesions. No joint degeneration. Soft tissues: No soft tissue hematomas. Visualized extensor and flexor tendons appear in expected pos itions. IMPRESSION: Minimally displaced subcortical dorsal fracture of the distal radius, deep to the fourth extensor tendon compartment. Dictated by: Tobias Dykes M.D. on 05/17/2017 at 8:44 Approved by: Tobias Dykes M.D. on 05/17/2017 at 8:49
--- NOTE | 2017-05-17 12:27 | NUR ---
Nursing: some confusion, disorganized. Pt was in bed in am and compliant with all medications. She c/o of pain in her L arm, and 'all over. I feel like I've been hit by a truck."- she says "I tend to fall a lot. There is a rambunctious dog I deal with. My neighbor got it for me to keep the deer out, but they get along. So I just end up wearing it. He lays all over me..." Pt down to CT for left arm and results to MD. Pt tolerated this well. She ate both breakfast and lunch and intermittently lays down. When asked for 2 words for her mood, "I'm anxious! anxious."She declines pain medication: "This pain I can tolerate(pointing to her L arm) but this one (pointing to her heart)...nothing fixes that. I have a feeling I'm here to be protected. 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 They won't stop talking, ' She then agreed to 'give it a shot', "but you owe me(laughing)"
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
--- NOTE | 2017-05-17 16:18 | NUR ---
Observations [id number] Pt followed by 1:1 sitter all day. Pt continues to appear very confused, disoriented, lacking insight as to why she is here. Pt attended all meals, eating an average of 75%. Presented as less hostile in actions and demeanor then previous week. Pt did attempt to attend groups, slept much of the day. Pt was friendly with peers and staff. Pt observed every 15 minutes of shift as directed.
[2017-05-17 18:14] VITALS: BP 138/95; PULSE 102; RESP 20
--- NOTE | 2017-05-17 22:37 | NUR ---
NURS NOTE [id number] Mood: "I'm good, great." Denies depression, anxiety. Affect: Well-modulated, at times suspicious. Behavior: 1:1 with pt duration of shift. In and out of bed much of shift. Asleep since about 2200. Thought Content/Process: Loose associations. Tangential. PRN/NURS Notes: Pt has bruises on dorsal and ventral aspect of left wrist, in-and-out of brace, iced off and on. Given PRN ibuprofen and acetaminophen for pain.
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
[2017-05-18] MEDS: risperiDONE 1 mg Tablet PO PRN (00:18)
--- NOTE | 2017-05-18 06:13 | NUR ---
Noc shift note [id number] Pt alert and responsive with baseline confusion;1:[address] for safety[address] Pt given Lorazepam and Risperdal upon request. No behavioral issues reported or observed. Continue to monitor for behavioral issues, mood changes, emotional well being by implementing Q15 minute checks for safety. Care ongoing.
[2017-05-18 08:15] VITALS: BP 126/96; PULSE 80; RESP 17
[2017-05-18] MEDS: risperiDONE 1 mg Tablet PO SCH ×2 (08:32→20:28)
[2017-05-18] MEDS: Divalproex Sprinkles 125 mg ER12 Capsule PO SCH ×2 (08:51→20:28)
--- NOTE | 2017-05-18 14:30 | NUR ---
nursing: Re: tailbone pain: Examined the area and there is no bruising. Palpated along the whole area and there was no significant tenderness. And she was having trouble pointing out the area herself. "I have had this forever since I was a kid. "Then it's not new or recent?" "No! How many times do I have to tell you!" Pt is much more steady on her feet this shift. Has slept or laid in bed about half of it. She denies any SI, HI or thought disturbance. Continues tangential, and confused. When asked if she could say what got her in here: "I really don't know. I think someone was trying to protect me from people trying to kill me..." She says this is because, "I am coming into millions and millions of dollars so you can imagine... I'm going to build another [facility]. Also I have many people working on this, to stop all the [place] at the board." She is pleasant and has complied with meds.
--- NOTE | 2017-05-18 15:34 | NUR ---
Rn Sexual Assault/Counselor S: "I could be doing a lot of other fun things instead of being here." O: Patient denies any HI or SI, no AVH, and rated her anxiety at 8-9, and no depression. A: Patient stated she is anxious becuse she's here, and she is sad and misses her friends. She has reported some pain in her tailbone, and has stayed in bed most of the day. She states that she is forcing herself to eat, and she was reminded to keep wearing her wrist brace. She was still confused, and stated the date was the or October,. P: Follow care plan and coordinate with outpatient providers.
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
--- NOTE | 2017-05-18 18:24 | NUR ---
Observations [id number] Pt remained in room much of day, resting. Pt friendly with peers and staff. She talked to this junior copywriter about her family, and wanting to contact them. Pt discussed medication and feeling as though she is "drugged up." Pt did not attend group, did attend meals eating an average of 70%. Pt did not shower or request laundry, more lethargic, flat affect. Pt was observed every 15 minutes of shift as directed.
[2017-05-18] MEDS: Magnesium Hydroxide 10 mL Oral Concentration PO PRN (19:16)
--- NOTE | 2017-05-18 22:27 | NUR ---
NURSING NOTE [id number] Mood: "it's hard being in here, you know... but I'm going home tomorrow" *smiles* Affect: calm, pleasant, cooperative Behavior: pt. walked up and down the hallways for a bit at start of shift, social off and on w/peers, later isolating to her room, resting in bed d/t L wrist pain. Pt. wore her wrist splint for most of the shift, intermittently taking breaks to ice it. Med compliant at HS. Thought processes: scattered at times but more linear in conversation than evenings prior. Some bizarre thought content and paranoia; spoke of how she wants to go home "so that I can write letters to people in different time zones" but did not want to elaborate as to why and said "I don't trust what you would do with that information" Denies /. PRNs Motrin 600 -- 16:47 Tylenol 650 -- 17:55
[2017-05-19] MEDS: risperiDONE 1 mg Tablet PO PRN (02:00)
--- NOTE | 2017-05-19 06:26 | NUR ---
Nursing Note Senior Construction Manager 11pm to 7am Pt asleep at start of shift. Woke up at approx. 0200 requesting a med for restlessness and something for pain of 8/10 in left wrist. Pt received Risperidone 1mg as Ativan contraindicated at this time due to fall risk. Also received Ibuprofen 600mg. Pt still awake at 0245 reporting unresolved pain and was given Tylenol 650mg with good relief. Pt slept 7 hours Monitored pt with 15 minute face checks for safety, location and accountability
[2017-05-19] MEDS: risperiDONE 1 mg Tablet PO SCH ×2 (08:09→20:59)
[2017-05-19] MEDS: Divalproex Sprinkles 125 mg ER12 Capsule PO SCH ×2 (08:09→20:59)
[2017-05-19 10:36] VITALS: BP 112/72; PULSE 85; RESP 16
--- NOTE | 2017-05-19 11:16 | NUR ---
Reserve Officer/Counselor S:"I'm going to reopen [facility]." O: Patient denies any SI and HI, no AVH, and no anxiety or depression. A: Patient states that she does not believe in meds, but admits to her current medications helping. Stated she'd be willing to continue those. She was able to provide the correct date, and able to give her address. P:Follow care plan and coordinate with outpatient providers.
--- NOTE | 2017-05-19 15:29 | NUR ---
Nursing Day [id number] S-"I am not hearing anything and I am not seeing anything. I feel fine except for that I cant go out in the sun because of allergies. I need some over the counter medications and dont worry I wont drive because I cant right now. My neighbors is owner/photographer of the taxi cab you can call him. By the way am I leaving today?" O- Pt. appears unkempt, hair not done and wearing a tank top with a shirt as a turtle neck. Pt. eats meals in the dining room and socializes with other Pts. Walked by the windows at the nurses station and flipped me off. A- Pt. when communicating maintains eye contact and will get off track on conversation. Steady ambulation. Pt. is stating at times that she will be going home and states she cant drive and she will call her neighbor to get her to drive his taxi to come and get her. Pt. was given Tylenol and Ibuprofen with scheduled morning medications because she was complaining of left wrist pain 6/10. Upon reassessment Pt. stated her pain is still 6/10 and might need something stronger. P-Follow plan of care, monitor behavior, monitor side effects of medication, safety to Pt. and others.
--- NOTE | 2017-05-19 17:34 | NUR ---
[facility] Day Shift Pt maintained behavioral control throughout the shift. Pt affect appears mostly flat, but is brighter when engaged with peers. Pt does not appear as negative and antagonistic as noted on previous shifts. Pt spends most of the shift resting in her room and lightly interacting with peers in the dining room. Pt is appropriate with staff and peers when active on the unit. Pt attended community meeting and all group activities throughout the shift. Pt attended all meals and ate approx 70% of all meals.
--- NOTE | 2017-05-19 22:58 | PCM.PNPSY ---
Subjective Date of Service May 19, 2017 Subjective The patient is initially seen leaving her room without hand brace, but places on when requested. She reports that she has funds to [facility]. "Dad made a deal with Christy. I got my picture in the paper. I was the New Years Baby." This is a delusion that was previously present. She adds that she also has residential and commercial property which she can use to fund this project. The patient reports that she has not seen the pedophile so far today but, "I know what cars to look for." She reports that the date is 05/19 and is in [facility]. She denies side effects. Sleep: 7 hours "weird dreams." Appetite: "Forcing myself to eat" Suicidal and homicidal ideation: denies Auditory hallucinations:denies Visual hallucinations: denies Other Psychotic Symptoms: see above Anxiety: 0/10 Depression: 0/10 Current Medications Current Medications Tramadol HCl 50 mg Q4H PRN PO Last administered on 05/19/17t 20:59; Admin Dose 50 MG; Start 05/19/17 at 19:15 Mental Status Exam Appearance: Neat/well groomed Attitude: Pleasant, Cooperative Behavior: No unusual behavior Affect: Restricted Mood: Euthymic Thought Process/Associations: Goal Directed, Tangential Speech Production: Normal Speech Rate: Normal Speech Articulation: Normal Thought Content: Somatic preoccupation, Suspicious, Perseveration Danger to Self/Suicidal Ideati: None Danger to Others: None Delusions: Paranoid (Endorses), Grandiose (Endorses) Hallucinations: Auditory (Denies), Visual (Denies) Consciousness: Alert Orientation: Person, Place, Date Memory: Short Term Memory (Impaired) Estimate Intellectual Function: Average Basis for IQ estimate: Word use/vocabulary, Educational history, Employment history Attention/Concentration & Cogn: Impaired Insight: Unable to assess Judgement: Unable to assess Mental Health Plan The patient is a 66-year-old female, who has a history of prior independent living in her apartment and who was initially admitted in March and discharged in April on a 90-day less restrictive order. The patient has been medication nonadherent and has become increasingly confused and paranoid, by report. This episode appears to be very similar to her last episode with disorganized thought processes, mood lability and irritability. The patient became more disorganized overnight and may have experienced some disinhibition from lorazepam. She appears improved with low dose lorazepam and risperidone. Patient still disorganized and needing 1:1 to prevent intrusion with peers. Patient's wrist with worsening ecchymosis and found to have fracture on CT. Orthopedics recommends continuation of wrist splint and recheck x-ray in 3-4 weeks. The patient appears more organized than yesterday, is oriented to date and location, but remains delusional. Grifton Grifton I 1. Bipolar disorder, most recent episode, manic, with psychotic features. 2. Polysubstance use disorder including tetrahydrocannabinol, opiates and cocaine. 3. Neurocognitive disorder, not otherwise specified. [place] II Deferred. Grif[place] III Ulnar fracture. History of chronic pain, reflux, and hypertension. [place] IV Chronic mental health issues, limited social support. [place] V Global assessment of functioning 30. Treatments 1. The patient is admitted to the inpatient unit and will be provided a safe and secure environment. 2. The patient is currently denying active suicidality and is not in need of a one-to-one at this time. 3. The patient is encouraged to participate to group and milieu activities. 4. The patient will be seen by the treatment team on a daily basis to assess symptom side effects, response to treatment. 5. The patient will be restarted on aripiprazole 20 mg daily. 6. The patient will be placed on divalproex sprinkles 500 mg daily and 1000 mg nightly. 7. Reduce lorazepam to 1 mg 3 times a day as needed. 8. Risperidone 0.5 -1 mg every 6 hours as needed for severe paranoia/ agitation 9. Wrist splint and follow-up X-ray in 3-4 weeks. 10. Risperidone 1mg po bid 11. Methocarbamol 500 mg nightly. 12. Anticipated length of stay is 14 days. David Garrett MD May 19, 2017 22:57
--- NOTE | 2017-05-20 05:09 | NUR ---
Nursing Noc " I have anxiety about my brother, I wish he would just mind his own business." Pt noted to speak with brother on phone today for quiet some time without obvious irritability or anger. Pt present pleasant with staff, joking and laughing appropriately. Tending to ADLs and ambulating safety around unit. Reports good pain control achieved with Tramadol. Pt was not aware of what happened to left wrist. Pt icing said extremity for added comfort while awake. Pt presents much more reality based since not having Ativan for the last two days. Continuing to monitor mood behavior, and emotional state. Q15 minute safety checks. CP
[2017-05-20] MEDS: risperiDONE 1 mg Tablet PO SCH (08:08)
[2017-05-20] MEDS: Divalproex Sprinkles 125 mg ER12 Capsule PO SCH ×2 (08:08→21:31)
--- NOTE | 2017-05-20 15:58 | NUR ---
Nursing Day [id number] S- "Nope. I dont see or hear anything. I feel fine except for my left wrist pain. Both arms hurt but my left arm hurts the most right now." O- Pt. appears unkempt, hair not done and wearing the same tank top from yesterday. Pt. eats meals in the dining room and socializes with other pts. Sleeping on and off during the shift and not wearing her wrist brace for her Left wrist. Pt. states "It does not fit well and it causes itchiness. The doctor said I was gonna get a custom brace." A- Pt. maintains eye contact and has steady ambulation. Pt. stays on track when communicating with me and she knows who she is and where she is at. Pt. was given Tylenol and Ibuprofen around noon for her left wrist pain. P-Follow plan of care, monitor behavior, monitor side effects of medication, safety to Pt. and others.
[2017-05-20 17:26] VITALS: BP 128/88; PULSE 93; RESP 16
--- NOTE | 2017-05-20 18:41 | NUR ---
[facility] Day Shift Pt affect and behavior unchanged from previous shift. Pt maintained behavioral control throughout the shift. Pt affect appears mostly flat, but is brighter when engaged with peers. Pt spends most of the shift resting in her room and lightly interacting with peers in the dining room. Pt is appropriate with staff and peers when active on the unit. Pt attended community meeting and lightly participated in all group activities throughout the shift. Pt attended all meals and ate approx 70% of all meals.
[2017-05-20] MEDS: risperiDONE 2 mg Tablet PO SCH (21:30)
--- NOTE | 2017-05-20 23:55 | PCM.PNPSY ---
Subjective Date of Service May 20, 2017 Subjective The patient reports that she doesn't like wearing the brace as it causes skin irritation and is too tight. She reports that things were violent last night. She reports that "my brother is worried about criminal activity with drug computer. She reports that she is ready for discharge as she is concerned that her clothes and skin smell like the mattress. Denies side effects. Sleep: 7.5 hours Appetite: waning again Suicidal and homicidal ideation: denies Auditory hallucinations:denies Visual hallucinations: denies Other Psychotic Symptoms: see above Anxiety: 9/10 "fear that I may not be going home again." Depression: 0/10 Current Medications Current Medications Risperidone 2 mg HS PO Last administered on 05/20/17 21:30; Admin Dose 2 MG; Start 05/20/17 at 21:00 Tramadol HCl 50 mg Q4H PRN PO Last administered on 05/20/17 21:50; Admin Dose 50 MG; Start 05/19/17 at 19:15 Mental Status Exam Vital Signs Vital Signs Date Time Temp Pulse Resp B/P Pulse Ox O2 Delivery O2 Flow Rate FiO2 05/20/17 17:26 36.3 93 16 128/88 Appearance: Neat/well groomed Attitude: Pleasant, Cooperative Behavior: No unusual behavior Affect: Restricted Mood: Euthymic Thought Process/Associations: Goal Directed, Tangential Speech Production: Normal Speech Rate: Normal Speech Articulation: Normal Thought Content: Somatic preoccupation, Suspicious, Perseveration Danger to Self/Suicidal Ideati: None Danger to Others: None Delusions: Paranoid (Endorses), Grandiose (Endorses) Hallucinations: Auditory (Denies), Visual (Denies) Consciousness: Alert Orientation: Person, Place, Date Memory: Short Term Memory (Impaired) Estimate Intellectual Function: Average Basis for IQ estimate: Word use/vocabulary, Educational history, Employment history Attention/Concentration & Cogn: Impaired Insight: Unable to assess Judgement: Unable to assess Mental Health Plan The patient is a 66-year-old female, who has a history of prior independent living in her apartment and who was initially admitted in March and discharged in April on a 90-day less restrictive order. The patient has been medication nonadherent and has become increasingly confused and paranoid, by report. This episode appears to be very similar to her last episode with disorganized thought processes, mood lability and irritability. The patient became more disorganized overnight and may have experienced some disinhibition from lorazepam. She appears improved with low dose lorazepam and risperidone. Patient still disorganized and needing 1:1 to prevent intrusion with peers. Patient's wrist with worsening ecchymosis and found to have fracture on CT. Orthopedics recommends continuation of wrist splint and recheck x-ray in 3-4 weeks. The patient appears more organized and is oriented to date and location , but remains delusional. Midland Midland I 1. Bipolar disorder, most recent episode, manic, with psychotic features. 2. Polysubstance use disorder including tetrahydrocannabinol, opiates and cocaine. 3. Neurocognitive disorder, not otherwise specified. [place] II Deferred. [place] III Ulnar fracture. History of chronic pain, reflux, and hypertension. [place] IV Chronic mental health issues, limited social support. [place] V Global assessment of functioning 30. Treatments 1. The patient is admitted to the inpatient unit and will be provided a safe and secure environment. 2. The patient is currently denying active suicidality and is not in need of a one-to-one at this time. 3. The patient is encouraged to participate to group and milieu activities. 4. The patient will be seen by the treatment team on a daily basis to assess symptom side effects, response to treatment. 5. The patient will be restarted on aripiprazole 20 mg daily. 6. The patient will be placed on divalproex sprinkles 500 mg daily and 1000 mg nightly. 7. Reduce lorazepam to 1 mg 3 times a day as needed. 8. Risperidone 0.5 -1 mg every 6 hours as needed for severe paranoia/ agitation 9. Wrist splint and follow-up X-ray in 3-4 weeks. 10. Increase Risperidone to 1mg po daily and 2mg nightly 11. Methocarbamol 500 mg nightly. 12. Anticipated length of stay is 14 days. David Garrett MD May 20, 2017 23:55
--- NOTE | 2017-05-21 05:45 | NUR ---
Nursing Noc Pt appears bright and reality based. Reports good day and that she is ready to be discharged when every the Md says she is ready. Pt denied need for sleep aid this shift, but did want the Tramadol which she reports gives her good pain control and makes her a little sleepy. Pt noted to sleep through the night for the first time this shift. Continuing to monitor sleep quantity and quality, mood, behavior and emotional state. Q15 minute safety checks performed as directed. CP
--- NOTE | 2017-05-21 07:00 | NUR ---
OBSERVATIONS Pt was pleasant and cooperative with staff, social and appropriate with peers. Pt appears more lucid than previous encounters with this [facility]. Pt visited with an old friend. Pt attended evening group and stated that she met her goal of speaking with the doctor, rated her mood 8/10, and said her new goal was to get some good sleep. Pt was reported asleep at 2330 and slept through the night. Maintained Q15 safety checks as directed.
[2017-05-21] MEDS: risperiDONE 1 mg Tablet PO SCH (08:23)
[2017-05-21] MEDS: Divalproex Sprinkles 125 mg ER12 Capsule PO SCH ×2 (08:23→22:04)
--- NOTE | 2017-05-21 09:16 | NUR ---
Evaluation completed. Please go to "Notes" then click on "Assessments and Notes" (bottom left corner of screen). Then select appropriate discipline tab on top of screen.
[2017-05-21 10:05] VITALS: BP 103/70; PULSE 85; RESP 16
--- NOTE | 2017-05-21 10:26 | NUR ---
Nursing Dayshift: S: "I'm going to be here for a while." O: Patient made the above comment after court today. States she is "okay with it, as long as no-ones trying to kill me." When asked what that statement meant "they tried to kill me by giving me cocaine and lorazepam. I never take any of those." Was positive for both in her rapit drug screen at admission. Has been slowly ambulating the fam. Directable. Good appetite. Social. A: Talkative. Med compliant. P: CPOC. Monitor mood and behavior.
--- NOTE | 2017-05-21 12:07 | PCM.PNPSY ---
Subjective Date of Service May 21, 2017 Subjective The patient reports that she likes her new wrist brace and feels that it fits more comfortably. She reports that her friends and family both told her that she is safer here than at home and so she agreed to stay for an additional 14 days. She reports no side effects from medication. She was oriented to [address] May 2017, [place] [address]. She reports that things were violent last night. She reports that she has not seen the pedophile out on the street and " I don't plan on looking either." Sleep: 7.5 hours Appetite: "hungry" Suicidal and homicidal ideation: denies Auditory hallucinations:denies Visual hallucinations: denies Other Psychotic Symptoms: see above Anxiety/Depression: "I'm so happy to be alive." Current Medications Current Medications Risperidone 1 mg DAILY PO Last administered on 05/21/17 08:23; Admin Dose 1 MG; Start 05/21/17 at 08:30 Risperidone 2 mg HS PO Last administered on 05/20/17 21:30; Admin Dose 2 MG; Start 05/20/17 at 21:00 Tramadol HCl 50 mg Q4H PRN PO Last administered on 05/20/17 21:50; Admin Dose 50 MG; Start 05/19/17 at 19:15 Mental Status Exam Appearance: Neat/well groomed Attitude: Pleasant, Cooperative Behavior: No unusual behavior Affect: Well Modulated/Appropriate Mood: Euthymic Thought Process/Associations: Goal Directed Speech Production: Normal Speech Rate: Normal Speech Articulation: Normal Thought Content: Somatic preoccupation, Suspicious (mild), Perseveration Danger to Self/Suicidal Ideati: None Danger to Others: None Delusions: Paranoid (Endorses), Grandiose (Endorses) Hallucinations: Auditory (Denies), Visual (Denies) Consciousness: Alert Orientation: Person, Place, Date, Situation Memory: Short Term Memory (Impaired) Estimate Intellectual Function: Average Basis for IQ estimate: Word use/vocabulary, Educational history, Employment history Attention/Concentration & Cogn: Impaired Insight: Unable to assess Judgement: Unable to assess Mental Health Plan The patient is a 66-year-old female, who has a history of prior independent living in her apartment and who was initially admitted in March and discharged in April on a 90-day less restrictive order. The patient has been medication nonadherent and has become increasingly confused and paranoid, by report. This episode appears to be very similar to her last episode with disorganized thought processes, mood lability and irritability. The patient became more disorganized overnight and may have experienced some disinhibition from lorazepam. She was switched to risperidone and has so far been titrated to 1mg daily and 2mg nightly with good results. Her wrist will continue to need a split and orthopedics recommends continuation of wrist splint and recheck x-ray in 3-4 weeks. The patient appears more organized and is oriented to date and location, but remains delusional though significantly improved from admission. Mccamey Mccamey I 1. Bipolar disorder, most recent episode, manic, with psychotic features. 2. Polysubstance use disorder including tetrahydrocannabinol, opiates and cocaine. 3. Neurocognitive disorder, not otherwise specified. M[place]ame[place] II Deferred. Mccamey III Ulnar fracture. History of chronic pain, reflux, and hypertension. M[place]ame[place] IV Chronic mental health issues, limited social support. Mccame[place] V Global assessment of functioning 30. Treatments 1. The patient is admitted to the inpatient unit and will be provided a safe and secure environment. 2. The patient is currently denying active suicidality and is not in need of a one-to-one at this time. 3. The patient is encouraged to participate to group and milieu activities. 4. The patient will be seen by the treatment team on a daily basis to assess symptom side effects, response to treatment. 5. The patient will be continued on Risperidone to 1mg po daily and 2mg nightly 6. The patient will be placed on divalproex sprinkles 500 mg daily and 1000 mg nightly. 7. Will discontinue lorazepam 1mg and decrease to 0.5mg to avoid possible delirium 8. Risperidone 0.5 -1 mg every 6 hours as needed for severe paranoia/ agitation 9. Wrist splint and follow-up X-ray in 3-4 weeks. 10. Methocarbamol 500 mg nightly. 11. Anticipated length of stay is 14 days. David Garrett MD May 21, 2017 12:07
--- NOTE | 2017-05-21 18:35 | NUR ---
Observations 00 - 2129 Pt has been friendly with staff and peers. Pt maintained behavior control today. Pt was polite, pleasant and cooperative when approached. Pt was appropriate and social with staff and peers. Pt was offered snack but she declined. Pt ate about 75% of her meals. Pt attended group and unit activities. Pt went out on patio with staff and peers to get some fresh air and sunshine. Pt was observed every 15 minutes through the night as ordered.
[2017-05-21] MEDS: risperiDONE 2 mg Tablet PO SCH (21:01)
--- NOTE | 2017-05-22 05:22 | NUR ---
Nursing Note Liquor Establishment Manager 7pm to 7amPt awake at start of shift, pt. oriented to time and place, thought process organized and linear. No delusional content elicited or observed. Pt received Ultram 50mg for pain 10/10 in left wrist and Motrin 600mg at 2102 with good relief. Pt went to sleep at midnight and slept the rest of the shift without interruption. Slept a total of 6 hours. Monitored pt. with q 15 minute face checks for safety location and accountability
[2017-05-22] MEDS: risperiDONE 1 mg Tablet PO SCH (08:39)
[2017-05-22 09:27] LABS: BASOPHILS % (AUTO) 0.2 % (0-3); EOSINOPHILS % (AUTO) 0.8 % (0-5); MONOCYTES % (AUTO) 8.5 % (4-12); Mean Corpuscular Hemoglobin 28.8 pg (27.0-35.0); Mean Corpuscular Volume 85.2 fL (81-100); NEUTROPHILS % (AUTO) 68.6 % (40-74); Platelet Count 238 bil/L (150-400)
[2017-05-22] MEDS: Divalproex Sprinkles 125 mg ER12 Capsule PO SCH ×2 (09:47→20:51)
[2017-05-22 10:00] VITALS: BP 111/74; PULSE 78; RESP 16
--- NOTE | 2017-05-22 15:16 | NUR ---
Nursing Dayshift: S: "Can you get me something for pain? My wrist is killing me." O: Patient c/o wrist pain at a "7 and a half" out of 10 and received Tylenol 650 mg and Ultram 50 mg both PO at 1252 with moderate relief stated. Has attended unit activities. Eating well at meals. Has not wandered today and is finding her new room without difficulty. Social with peers. Med compliant. Denies anxiety, depression, harmful thoughts, and hallucinations. A: Bright and cheery. Appropriate with staff and peers. P: CPOC. Monitor mood and behavior.
--- NOTE | 2017-05-22 15:43 | PCM.PNPSY ---
Subjective Date of Service May 22, 2017 Subjective I spent 30 minutes both reviewing treatment plan with our clinical team, interviewing the patient and providing supportive/educational psychotherapy. I spent more than 50% of the time counseling the patient. I reviewed the treatment plan with the patient and discussed options available including the potential risks, benefits and side effects. Leesa reports a slight improvement in thought organization and mood stability. Staff reports that she has been active and participating well in one-to-one unit and group activities. She slept 6 hours and denies depression manic or psychotic symptoms review. Staff reports that she has been less pressured and less intrusive on the unit. They still report she has disorganized thought. She denies medication side effects. She was able to identify her medications and what they were used to treat. Current Medications Current Medications Risperidone 1 mg DAILY PO Last administered on 05/22/17 08:39; Admin Dose 1 MG; Start 05/21/17 at 08:30 Risperidone 2 mg HS PO Last administered on 05/21/17 21:01; Admin Dose 2 MG; Start 05/20/17 at 21:00 Mental Status Exam Appearance: Neat/well groomed Attitude: Pleasant, Cooperative Behavior: No unusual behavior Affect: Well Modulated/Appropriate Mood: Euthymic Thought Process/Associations: Goal Directed Speech Production: Normal Speech Rate: Normal Speech Articulation: Normal Thought Content: Somatic preoccupation, Suspicious (mild), Perseveration Danger to Self/Suicidal Ideati: None Danger to Others: None Delusions: Paranoid (Endorses), Grandiose (Endorses) Consciousness: Alert Orientation: Person, Place, Date, Situation Memory: Short Term Memory (Impaired) Estimate Intellectual Function: Average Basis for IQ estimate: Word use/vocabulary, Educational history, Employment history Attention/Concentration & Cogn: Impaired Insight: Unable to assess Judgement: Unable to assess Result Diagram: 05/22/17 0910 05/22/17 0910 Mental Health Plan Lowell Lowell I 1. Bipolar disorder, most recent episode, manic, with psychotic features. 2. Polysubstance use disorder including tetrahydrocannabinol, opiates and cocaine. 3. Neurocognitive disorder, not otherwise specified. Lowell II Deferred. Lowell III Ulnar fracture. History of chronic pain, reflux, and hypertension. [place] IV Chronic mental health issues, limited social support. [place] V Global assessment of functioning 30. Treatments Patient is being provided with a high degree of safety through our unit structure and active adult engagement provided by our mental health professionals, mental health technicians, psychiatric nurses and myself. We are focusing on developing improved coping skills and identifying stressors that may have led to current episode. We will attempt to: * Integrate into therapeutic groups, milieu and individual therapy. * Maintain in a closely monitored and structured unit * Provide low-stimulation environment * Obtain collateral data to assist in treatment planning * Assess degree of lability of affect and impulse control * Complete safety plan * Decrease frequency of relapse and need for re-hospitalization * Denies thoughts of harm to self and/or others * Establish a consistent sleep pattern * Medication effective in stabilization of mood and/or thought process * Reduce the risk of imminent harm to self and/or others by providing a safe environment * Tolerates medication without side effects * Patient will be on the following psychiatric medications: divalproex sprinkles 500 mg daily and 1000 mg nightly. Risperidone to 1mg po daily and 2mg nightly Education: Educate patient about recreational drug use as an etiology Educate about metabolic etiologies related to obesity Patient's legal status Patient is on a 14 day MR involuntary treatment hold. Anticipated number of hospital days to achieve above goals: 10 Disposition: Home Pranav Raza MD May 22, 2017 15:43
--- NOTE | 2017-05-22 16:19 | NUR ---
Card Clothier/Counselor S: Patient stated that she was in a good mood today. O: Patient did not report any SI or HI, no AVH, no anxiety or depression. A: Patient has been out in the milieu, participated in groups and did some artwork. She has been wearing her wrist brace and interacting with other patients. She was able to state the correct day, month and year today and overall seemed much clearer and less confused. P: Follow care plan and coordinate with outpatient providers.
[2017-05-22] MEDS: LORazepam 0.5 mg Tablet PO PRN ×2 (17:37→20:54)
--- NOTE | 2017-05-22 17:40 | NUR ---
Nurses PRN Patient received Ultram 50mg and Ativan 0.5mg for back pain and anxiety,will assess response.
[2017-05-22] MEDS: risperiDONE 2 mg Tablet PO SCH (20:50)
--- NOTE | 2017-05-23 07:04 | NUR ---
Nursing Note Tire Molder 7pm to 7am Pt visible at start of shift sitting quietly reading. Pt is calm, pleasant and cooperative. Thoughts are more organized and linear, affect constricted, mood neutral. No delusional content expressed or observed during the shift. Gait is steady. AAOx3. Pt able to sleep through the night without pain medication to manage pain to left wrist. She went to bed at 2130 and slept 8.5 hours. Monitored pt. q 15 minutes for safety, location and accountability
[2017-05-23 08:07] VITALS: BP 115/83; PULSE 74; RESP 17
[2017-05-23] MEDS: risperiDONE 1 mg Tablet PO SCH (08:10)
--- NOTE | 2017-05-23 13:17 | NUR ---
NURS NOTE DAYSHIFT Mood: "I'm doing great, my mood is great." Denies depression and anxiety. Affect: Well-modulated. Thought Process/Content: "I need my medical doctor to increase my dose of pain medications. Maybe I'll take a shot of Horine Jazmin each night. I'm waiting to get my inheritance, then Ill be loaded." Delusional, grandiose. Tangential, at times. Behavior: Interacting appropriately with peers and staff. PRNs/NURS: "I slept the best I have in a while last night."
--- NOTE | 2017-05-23 18:12 | PCM.PNPSY ---
Subjective Date of Service May 23, 2017 Subjective I spent 30 minutes both reviewing treatment plan with our clinical team, interviewing the patient and providing supportive/educational psychotherapy. I spent more than 50% of the time counseling the patient. I reviewed the treatment plan with the patient and discussed options available including the potential risks, benefits and side effects. Leesa reports a slight improvement in thought organization and mood stability. Staff reports that she has been active and participating well in one-to-one unit and group activities. She slept 9 hours and denies depression manic or psychotic symptoms review. Staff reports that she has been less pressured and less intrusive on the unit. They still report she has disorganized thought. She denies medication side effects. She was able to identify her medications and what they were used to treat. Current Medications Current Medications Divalproex Sodium 500 mg DAILY PO Last administered on 05/23/17t 08:10; Admin Dose 500 MG; Start 05/23/17 at 08:30 Mental Status Exam Appearance: Neat/well groomed Attitude: Pleasant, Cooperative Behavior: No unusual behavior Affect: Well Modulated/Appropriate Mood: Euthymic Thought Process/Associations: Logical/Sequential, Goal Directed Speech Production: Normal Speech Rate: Normal Speech Articulation: Normal Thought Content: Somatic preoccupation, Suspicious (mild) Danger to Self/Suicidal Ideati: None Danger to Others: None Consciousness: Alert Orientation: Person, Place, Date, Situation Memory: Short Term Memory (Impaired) Estimate Intellectual Function: Average Basis for IQ estimate: Word use/vocabulary, Educational history, Employment history Attention/Concentration & Cogn: Impaired Insight: Limited Judgement: Limited Result Diagram: 05/22/17 0910 05/22/17 0910 Mental Health Plan Irma Irma I 1. Bipolar disorder, most recent episode, manic, with psychotic features. 2. Polysubstance use disorder including tetrahydrocannabinol, opiates and cocaine. 3. Neurocognitive disorder, not otherwise specified. Irma II Deferred. Irma III Ulnar fracture. History of chronic pain, reflux, and hypertension. [place]ma IV Chronic mental health issues, limited social support. Irma V Global assessment of functioning 30. Treatments Patient is being provided with a high degree of safety through our unit structure and active adult engagement provided by our mental health professionals, mental health technicians, psychiatric nurses and myself. We are focusing on developing improved coping skills and identifying stressors that may have led to current episode. We will attempt to: * Integrate into therapeutic groups, milieu and individual therapy. * Maintain in a closely monitored and structured unit * Provide low-stimulation environment * Obtain collateral data to assist in treatment planning * Assess degree of lability of affect and impulse control * Complete safety plan * Decrease frequency of relapse and need for re-hospitalization * Denies thoughts of harm to self and/or others * Establish a consistent sleep pattern * Medication effective in stabilization of mood and/or thought process * Reduce the risk of imminent harm to self and/or others by providing a safe environment * Tolerates medication without side effects * Patient will be on the following psychiatric medications: divalproex sprinkles 500 mg daily and 1000 mg nightly. Risperidone to 1mg po daily and 2mg nightly Education: Educate patient about recreational drug use as an etiology Educate about metabolic etiologies related to obesity Patient's legal status Patient is on a 14 day involuntary treatment hold. Anticipated number of hospital days to achieve above goals: 10 Disposition: Home Pranav Raza MD May 23, 2017 18:12
--- NOTE | 2017-05-23 18:38 | NUR ---
Observations [id number] Pt friendly with peers and staff, behavior appropriate. Pt speech still scattered and hard to comprehend at times. Pt participated in group activities, paced unit. She also spent lots of time in bed resting. Pt attended all meals, eating 100%. She was observed every 15 minutes of shift as directed.
[2017-05-23] MEDS: risperiDONE 2 mg Tablet PO SCH (20:54)
--- NOTE | 2017-05-23 23:04 | NUR ---
Nurses Note Evening Patient has been social,pleasant and medication compliant. Her thought processes are tangential and loose with poor insight into illness and management. Patient reported that she believed staying away from bad men would keep her out of the hospital. Will maintain q 15min. checks for safety and support. Addendum: 05/23/17 at 2310 by TOM MCDUFFIE RN Amended: Links added.
--- NOTE | 2017-05-24 00:09 | NUR ---
Observations 1900 to 0700 Pt attended and participated in wrap up group. Pt ate a snack. Pt is pleasant and appears oriented x3. Pt mildly social with peers but spent most of free time resting in bed. Pt maintained behavioral control and showed no signs of abnormal behavior during shift. Pt appeared asleep at 2200 and has remained asleep. Pt respirations were observed when asleep. Staff completed 15 min close observations as ordered.
--- NOTE | 2017-05-24 05:13 | NUR ---
Administrative Professional Nursing Note 11pm to 7am Pt asleep at start of shift and slept through the night with 1 interruption for 15 minutes when she got up to get some water. Gait is steady. Pt is AAOx3. Monitored pt. with q 15 min face checks for safety, location and accountability
[2017-05-24] MEDS: risperiDONE 1 mg Tablet PO SCH (08:10)
[2017-05-24 08:40] VITALS: BP 135/73; PULSE 80; RESP 19
--- NOTE | 2017-05-24 13:42 | PCM.PNPSY ---
Subjective Date of Service May 24, 2017 Subjective I spent 30 minutes both reviewing treatment plan with our clinical team, interviewing the patient and providing supportive/educational psychotherapy. I spent more than 50% of the time counseling the patient. I reviewed the treatment plan with the patient and discussed options available including the potential risks, benefits and side effects. Leesa reports a slight improvement in thought organization and mood stability. Staff reports that she has been active and participating well in one-to-one unit and group activities. She slept 7 hours and denies depression manic or psychotic symptoms review. Staff reports that she has been less pressured and less intrusive on the unit. Her thought process is improving and was more organized today. She denies medication side effects. Current Medications Current Medications Divalproex Sodium 500 mg DAILY PO Last administered on 05/24/17 08:12; Admin Dose 500 MG; Start 05/23/17 at 08:30 Divalproex Sodium 1,000 mg HS PO Last administered on 05/23/17 20:54; Admin Dose 1,000 MG; Start 05/23/17 at 21:00 Mental Status Exam Appearance: Neat/well groomed Attitude: Pleasant, Cooperative Behavior: No unusual behavior Affect: Well Modulated/Appropriate Mood: Euthymic Thought Process/Associations: Logical/Sequential, Goal Directed Speech Production: Normal Speech Rate: Normal Speech Articulation: Normal Thought Content: Appropriate Danger to Self/Suicidal Ideati: None Danger to Others: None Consciousness: Alert Orientation: Person, Place, Date, Situation Memory: Short Term Memory (Impaired) Estimate Intellectual Function: Average Basis for IQ estimate: Word use/vocabulary, Educational history, Employment history Attention/Concentration & Cogn: Impaired Insight: Limited Judgement: Limited Result Diagram: 05/22/17 0910 05/22/17 0910 Mental Health Plan [place] 1. Bipolar disorder, most recent episode, manic, with psychotic features. 2. Polysubstance use disorder including tetrahydrocannabinol, opiates and cocaine. 3. Neurocognitive disorder, not otherwise specified. [place] II Deferred. [place] III Ulnar fracture. History of chronic pain, reflux, and hypertension. [place] IV Chronic mental health issues, limited social support. [place] V Global assessment of functioning 35. Treatments Patient is being provided with a high degree of safety through our unit structure and active adult engagement provided by our mental health professionals, mental health technicians, psychiatric nurses and myself. We are focusing on developing improved coping skills and identifying stressors that may have led to current episode. We will attempt to: * Integrate into therapeutic groups, milieu and individual therapy. * Maintain in a closely monitored and structured unit * Provide low-stimulation environment * Obtain collateral data to assist in treatment planning * Assess degree of lability of affect and impulse control * Complete safety plan * Decrease frequency of relapse and need for re-hospitalization * Denies thoughts of harm to self and/or others * Establish a consistent sleep pattern * Medication effective in stabilization of mood and/or thought process * Reduce the risk of imminent harm to self and/or others by providing a safe environment * Tolerates medication without side effects * Patient will be on the following psychiatric medications: divalproex sprinkles 500 mg daily and 1000 mg nightly. Risperidone to 1mg po daily and 2mg nightly Education: Educate patient about recreational drug use as an etiology Educate about metabolic etiologies related to obesity Patient's legal status Patient is on a 14 day involuntary treatment hold. Anticipated number of hospital days to achieve above goals: 10 Disposition: Home Pranav Raza MD May 24, 2017 13:42
--- NOTE | 2017-05-24 15:53 | NUR ---
Sales Merchandiser/Counselor S:" I just feel like dancing today!" O: Patient denies any SI, HI, no AVH, no anxiety or depression. A: Patient stated that she was in a good mood and just felt like dancing and releasing some energy. She has been out and about on the unit, interacting with patients and doing art projects. She has been walking some laps and is wearing her wrist brace. P: Follow care plan and coordinate with outpatient providers.
--- NOTE | 2017-05-24 15:58 | NUR ---
Nursing Day [id number] S-"I dont hear anything or see anything. No thoughts of hurting others or myself. If they want to hurt themselves, criminals or whatever, they can. But I wont. I dont feel depression but I feel sadness for Piedad, sometimes too much to where I need to get away." O- Pt. appears well kept, making eye contact when communicating. Pt. is eating her meals in the dining room and socializing with others Pts. Pt. is wearing her left wrist brace. A- Pt. denies auditory or visual hallucination. Pt. wearing her left wrist brace and understands why. Pt. stays on topic when communicating with me and does not change subjects. Pt. has clear speech. P-Follow plan of care, monitor behavior, monitor side effects of medication, safety to Pt. and others.
[2017-05-24] MEDS: risperiDONE 2 mg Tablet PO SCH (20:19)
--- NOTE | 2017-05-24 21:45 | NUR ---
7-11 Nursing note Patient presents as bright and energetic. Doing exercises and dancing to music with peers on the unit appropriately. Reports ongoing pain in affected wrist, treated with ibuprofen. Coming to groups and socializing well with peers.
--- NOTE | 2017-05-24 23:55 | NUR ---
NOC OBS Pt enjoyed visit with brother. Out on unit some enjoying music in evening. Interaction appropriate, mood positive. Asleep at 2345. Observed Q15 as ordered.
--- NOTE | 2017-05-25 05:47 | NUR ---
Nursing Print Binding And Finishing Worker 11pm to 7am Pt asleep at start of shift and remained asleep for the duration with no complaints voiced or observed. Monitored pt. with 15 min face checks for safety, location and accountability.
[2017-05-25 07:47] VITALS: BP 134/84; PULSE 71; RESP 16
[2017-05-25] MEDS: risperiDONE 1 mg Tablet PO SCH (08:20)
--- NOTE | 2017-05-25 14:19 | PCM.PNPSY ---
Subjective Date of Service May 25, 2017 Subjective I spent 30 minutes both reviewing treatment plan with our clinical team, interviewing the patient and providing supportive/educational psychotherapy. I spent more than 50% of the time counseling the patient. I reviewed the treatment plan with the patient and discussed options available including the potential risks, benefits and side effects. Leesa reports a slight improvement in thought organization and mood stability. Staff reports that she has been active and participating well in one-to-one unit and group activities. She slept 7 hours and denies depression manic or psychotic symptoms review. Staff reports that she has been less pressured and less intrusive on the unit. Her thought process is improving and was more organized today. She denies medication side effects. Current Medications Current Medications Divalproex Sodium 1,000 mg HS PO Last administered on 05/24/17t 20:18; Admin Dose 1,000 MG; Start 05/23/17 at 21:00 Mental Status Exam Vital Signs Vital Signs Date Time Temp Pulse Resp B/P Pulse Ox O2 Delivery O2 Flow Rate FiO2 05/25/17 07:47 36.0 71 16 134/84 Appearance: Neat/well groomed Attitude: Pleasant, Cooperative Behavior: No unusual behavior Affect: Well Modulated/Appropriate Mood: Euthymic Thought Process/Associations: Logical/Sequential, Goal Directed Speech Production: Normal Speech Rate: Normal Speech Articulation: Normal Thought Content: Appropriate Danger to Self/Suicidal Ideati: None Danger to Others: None Consciousness: Alert Orientation: Person, Place, Date, Situation Memory: Short Term Memory (Impaired) Estimate Intellectual Function: Average Basis for IQ estimate: Word use/vocabulary, Educational history, Employment history Attention/Concentration & Cogn: Impaired Insight: Limited Judgement: Limited Result Diagram: 05/22/17 0910 05/22/17 0910 Mental Health Plan With the structure of our unit, refraining from recreational drugs and taking her medications as prescribed Leesa has had a near-complete remission of symptoms. We are working with her on how to develop an outpatient program where she can be successful as well. On the unit she continues to to show gradual and steady improvement. She will likely be ready for discharge in the next several days. [place] 1. Bipolar disorder, most recent episode, manic, with psychotic features. 2. Polysubstance use disorder including tetrahydrocannabinol, opiates and cocaine. 3. Neurocognitive disorder, not otherwise specified. [place] II Deferred. [place] III Ulnar fracture. History of chronic pain, reflux, and hypertension. [place] IV Chronic mental health issues, limited social support. [place] V Global assessment of functioning 35. Treatments Patient is being provided with a high degree of safety through our unit structure and active adult engagement provided by our mental health professionals, mental health technicians, psychiatric nurses and myself. We are focusing on developing improved coping skills and identifying stressors that may have led to current episode. We will attempt to: * Integrate into therapeutic groups, milieu and individual therapy. * Maintain in a closely monitored and structured unit * Provide low-stimulation environment * Assess degree of lability of affect and impulse control * Complete safety plan * Decrease frequency of relapse and need for re-hospitalization * Establish a consistent sleep pattern * Medication effective in stabilization of mood and/or thought process * Reduce the risk of imminent harm to self and/or others by providing a safe environment * Tolerates medication without side effects * Patient will be on the following psychiatric medications: divalproex sprinkles 500 mg daily and 1000 mg nightly. Risperidone to 1mg po daily and 2mg nightly Education: Educate patient about recreational drug use as an etiology Educate about metabolic etiologies related to obesity Patient's legal status Patient is on a 14 day MR involuntary treatment hold. Anticipated number of hospital days to achieve above goals: 1 Disposition: Home with support from the pact team Pranav Raza MD May 25, 2017 14:19
--- NOTE | 2017-05-25 15:52 | NUR ---
Datacap Developer/Counselor S:"My arm hurts, and this brace is restricting." O: Patient did not express any SI or HI, no AVH and no anxiety or depression. A: Patient was complaining about her arm brace but reminded to keep wearing it. She has been cooperative and friendly today. Her brother has inquired several times throughout the last 2 days in regards to her mental status, court status, follow up care etc. She has participated in group and has been interacting with other patients. P: Follow care plan and coordinate with outpatient providers.
--- NOTE | 2017-05-25 18:25 | NUR ---
Nursing Day note- Patient in good spirits today, laughing and smiling when interacting with others. Went outside to patio and groups. She said that she has been able to keep calm, and "hold it together", even when she has gotten irritated with other other peers. Patient medicated with ordered analgesics for wrist pain, which do not totally take away discomfort. Talking about her brother who is supposed to visit with patient tonight to setting up a POA for her financial affairs.
[2017-05-25] MEDS: risperiDONE 2 mg Tablet PO SCH (21:01)
--- NOTE | 2017-05-25 23:55 | NUR ---
NOC OBS [id number] Pt enjoyed visit from brother. Out on unit interacting appropriately with peers in evening. Asleep sound after 2345. Observed Q15 as ordered.
[2017-05-26] MEDS: risperiDONE 1 mg Tablet PO SCH (08:11)
[2017-05-26 10:19] VITALS: BP 107/73; PULSE 72; RESP 16
--- NOTE | 2017-05-26 11:43 | PCM.PNPSY ---
Subjective Date of Service May 26, 2017 Subjective I spent 30 minutes both reviewing treatment plan with our clinical team, interviewing the patient and providing supportive/educational psychotherapy. I spent more than 50% of the time counseling the patient. Leesa reports a marked improvement in thought organization and mood stability. Staff reports that she has been active and participating well in one-to-one unit and group activities. She slept 7 hours and denies depression manic or psychotic symptoms review. Staff reports that she has been less pressured and less intrusive on the unit. Her thought process is improving and was more organized today. She denies medication side effects. Mental Status Exam Vital Signs Vital Signs Date Time Temp Pulse Resp B/P Pulse Ox O2 Delivery O2 Flow Rate FiO2 05/26/17 10:19 36.3 72 16 107/73 Appearance: Neat/well groomed Attitude: Pleasant, Cooperative Behavior: No unusual behavior Affect: Well Modulated/Appropriate Mood: Euthymic Thought Process/Associations: Logical/Sequential, Goal Directed Speech Production: Normal Speech Rate: Normal Speech Articulation: Normal Thought Content: Appropriate Danger to Self/Suicidal Ideati: None Danger to Others: None Consciousness: Alert Orientation: Person, Place, Date, Situation Memory: Short Term Memory (Impaired) Estimate Intellectual Function: Average Basis for IQ estimate: Word use/vocabulary, Educational history, Employment history Attention/Concentration & Cogn: Impaired (mild) Insight: Limited Judgement: Limited Result Diagram: 05/22/17 0910 05/22/17 0910 Mental Health Plan With the structure of our unit, refraining from recreational drugs and taking her medications as prescribed Leesa has had a near-complete remission of symptoms. We are working with her on how to develop an outpatient program where she can be successful as well. On the unit she continues to to show gradual and steady improvement. [place] 1. Bipolar disorder, most recent episode, manic, with psychotic features. 2. Polysubstance use disorder including tetrahydrocannabinol, opiates and cocaine. 3. Neurocognitive disorder, not otherwise specified. [place] II Deferred. [place] III Ulnar fracture. History of chronic pain, reflux, and hypertension. [place] IV Chronic mental health issues, limited social support. [place] V Global assessment of functioning 35. Treatments Patient is being provided with a high degree of safety through our unit structure and active adult engagement provided by our mental health professionals, mental health technicians, psychiatric nurses and myself. We are focusing on developing improved coping skills and identifying stressors that may have led to current episode. We will attempt to: * Integrate into therapeutic groups, milieu and individual therapy. * Maintain in a closely monitored and structured unit * Provide low-stimulation environment * Assess degree of lability of affect and impulse control * Complete safety plan * Decrease frequency of relapse and need for re-hospitalization * Establish a consistent sleep pattern * Medication effective in stabilization of mood and/or thought process * Reduce the risk of imminent harm to self and/or others by providing a safe environment * Tolerates medication without side effects * Patient will be on the following psychiatric medications: divalproex sprinkles 500 mg daily and 1000 mg nightly. Risperidone to 1mg po daily and 2mg nightly Education: Educate patient about recreational drug use as an etiology Educate about metabolic etiologies related to obesity Patient's legal status Patient is on a 14 day involuntary treatment hold. Anticipated number of hospital days to achieve above goals: 1 Disposition: Home with support from the pact team Pranav Raza MD May 26, 2017 11:43
--- NOTE | 2017-05-26 12:41 | NUR ---
Obs Dayshift Pt is participating well on the unit, engaging w/ peers and staff, appropriate, calm and reasonable. Pt continues w/ some grand thoughts and ideas, but remains calm. Pt is pacing, has some concerns around some peers. Pt denies having any VH/AH, states that she is better and that her hand and heart are both doing better. Ok ADL's, Good meals
--- NOTE | 2017-05-26 14:10 | NUR ---
nursing note dayshift S)"I have a hard time with numbers its ADHD ,dyslexia or something" O) pt continues with paranoid thinking of her neighbor and other pedophilias that she can spot around town, talked about her first "I don't have depression but I do morn him" " I am going to be rich when he dies he only has one kidney", worked on art project was cooperative, took medications, pleasant on approach, no complaints A) appears calm, compliant with care, social, took medications P) monitor medication effectiveness and encourage participation in groups
--- NOTE | 2017-05-26 20:05 | NUR ---
Case Management/Counseling: S: "There are some people in here and I don't want them to know my personal stuff." O: Patient slept 6.75 hours last night per staff. Patient denies S/I and H/I. She denies auditory and visual hallucinations. Depression and anxiety were not rated. A: Patient is uncooperative, distactible, labile, anxious, suspicious, tangential, paranoid, poor insight, poor judgment. P: Follow care plan, coordinate with out-patient providers, monitor behavior.
[2017-05-26] MEDS: risperiDONE 2 mg Tablet PO SCH (21:12)
[2017-05-27] MEDS: LORazepam 0.5 mg Tablet PO PRN (03:55)
--- NOTE | 2017-05-27 06:03 | NUR ---
police shift commander [id number] Pt participated in wrap up group with peers and answered questions appropriately. Pt included ibuprofen with HS medications and went to bed appearing to be asleep without distress noted. Pt woke up with c/o anxiety and was given Clonazepam 0.5mg in which she appears be sleep at this time. Continue to monitor for mood changes, emotional well being, and q15min checks for safety. Care continues.
[2017-05-27] MEDS: risperiDONE 1 mg Tablet PO SCH (08:02)
[2017-05-27] MEDS: Magnesium Hydroxide 10 mL Oral Concentration PO PRN (08:56)
--- NOTE | 2017-05-27 12:36 | PCM.PNPSY ---
Subjective Date of Service May 27, 2017 Subjective I spent 30 minutes both reviewing treatment plan with our clinical team, interviewing the patient and providing supportive/educational psychotherapy. I spent more than 50% of the time counseling the patient. Leesa reports a marked improvement in thought organization and mood stability. Staff reports that she has been active and participating well in one-to-one unit and group activities. She slept 7 hours and denies depression manic or psychotic symptoms review. Staff reports that she has been less pressured and less intrusive on the unit. Her thought process is improving and was more organized today. She denies medication side effects. Mental Status Exam Appearance: Neat/well groomed Attitude: Pleasant, Cooperative Behavior: No unusual behavior Affect: Well Modulated/Appropriate Mood: Euthymic Thought Process/Associations: Logical/Sequential, Goal Directed Speech Production: Normal Speech Rate: Normal Speech Articulation: Normal Thought Content: Appropriate Danger to Self/Suicidal Ideati: None Danger to Others: None Consciousness: Alert Orientation: Person, Place, Date, Situation Memory: Short Term Memory (Impaired) Estimate Intellectual Function: Average Basis for IQ estimate: Word use/vocabulary, Educational history, Employment history Attention/Concentration & Cogn: Impaired (mild) Insight: Limited Judgement: Limited Result Diagram: 05/22/17 0910 05/22/17 0910 Mental Health Plan With the structure of our unit, refraining from recreational drugs and taking her medications as prescribed Leesa has had a near-complete remission of symptoms. We are working with her on how to develop an outpatient program where she can be successful as well. On the unit she continues to to show gradual and steady improvement. [place] 1. Bipolar disorder, most recent episode, manic, with psychotic features. 2. Polysubstance use disorder including tetrahydrocannabinol, opiates and cocaine. 3. Neurocognitive disorder, not otherwise specified. [place] II Deferred. [place] III Ulnar fracture. History of chronic pain, reflux, and hypertension. [place] IV Chronic mental health issues, limited social support. [place] V Global assessment of functioning 35. Treatments Patient is being provided with a high degree of safety through our unit structure and active adult engagement provided by our mental health professionals, mental health technicians, psychiatric nurses and myself. We are focusing on developing improved coping skills and identifying stressors that may have led to current episode. We will attempt to: * Integrate into therapeutic groups, milieu and individual therapy. * Maintain in a closely monitored and structured unit * Provide low-stimulation environment * Assess degree of lability of affect and impulse control * Complete safety plan * Decrease frequency of relapse and need for re-hospitalization * Establish a consistent sleep pattern * Medication effective in stabilization of mood and/or thought process * Reduce the risk of imminent harm to self and/or others by providing a safe environment * Tolerates medication without side effects * Patient will be on the following psychiatric medications: divalproex sprinkles 500 mg daily and 1000 mg nightly. Risperidone to 1mg po daily and 2mg nightly Education: Educate patient about recreational drug use as an etiology Educate about metabolic etiologies related to obesity Patient's legal status Patient is on a 14 day MR involuntary treatment hold. Anticipated number of hospital days to achieve above goals: 1 Disposition: Home with support from the pact team Pranav Raza MD May 27, 2017 12:36
--- NOTE | 2017-05-27 12:56 | NUR ---
nursing note dayshift S)"I can diagnosis myself medically and I definitely don't need a cement finisher helper" O) pt social in milieu and active with walking for exercise, eating meals dress in own clothes groomed, cooperative and pleasant on approach, states medications are working for her wrist pain, continues to talk about her rich first and how she will inherit lots of money to go traveling when he dies A) cooperative, pleasant, grandiose, little insight to mental illness P) monitor medication effectiveness and side effects
[2017-05-27 16:06] VITALS: BP 110/67; PULSE 59; RESP 17
[2017-05-27] MEDS: risperiDONE 2 mg Tablet PO SCH (20:43)
--- NOTE | 2017-05-28 02:18 | NUR ---
Observations 1900 to 0700 Pt attended and participated in wrap up group. Pt ate a snack. Pt is pleasant, cooperative and social with peers and staff. Pt maintained behavioral control and showed no signs of abnormal behavior. Pt appeared asleep at 2200 and has remained asleep. Pt respirations were observed when asleep. Staff completed 15 min close observations as ordered.
--- NOTE | 2017-05-28 05:15 | NUR ---
nursing, nights, 11-7 s- can i have something for my back. thank you. o- has appeared to sleep after 2200. asked for and received 50 mg of ultram at 0330 with good effect. is currently lying quietly in bed. assessed q 15 minutes. a- interupted sleep, no apparent distress. p- monitor behavior/emotional state, quality, times and amount of sleep, use and effect of medication. david
[2017-05-28] MEDS: risperiDONE 1 mg Tablet PO SCH (07:43)
--- NOTE | 2017-05-28 13:25 | PCM.PNPSY ---
Subjective Date of Service May 28, 2017 Subjective I spent 30 minutes both reviewing treatment plan with our clinical team, interviewing the patient and providing supportive/educational psychotherapy. I spent more than 50% of the time counseling the patient. Leesa reports a marked improvement in thought organization and mood stability. Staff reports that she has been active and participating well in one-to-one unit and group activities. She slept 6 hours and denies depression manic or psychotic symptoms review. Staff reports that she has been less pressured and less intrusive on the unit. Her thought process is improving and was more organized today. She denies medication side effects. Mental Status Exam Appearance: Neat/well groomed Attitude: Pleasant, Cooperative Behavior: No unusual behavior Affect: Well Modulated/Appropriate Mood: Euthymic Thought Process/Associations: Logical/Sequential, Goal Directed Speech Production: Normal Speech Rate: Normal Speech Articulation: Normal Thought Content: Appropriate Danger to Self/Suicidal Ideati: None Danger to Others: None Consciousness: Alert Orientation: Person, Place, Date, Situation Memory: Short Term Memory (Impaired) Estimate Intellectual Function: Average Basis for IQ estimate: Word use/vocabulary, Educational history, Employment history Attention/Concentration & Cogn: Impaired (mild) Insight: Limited Judgement: Good Result Diagram: 05/22/17 0910 05/22/17 0910 Mental Health Plan Leesa appears to be making slow but steady improvement in thought organization and mood stability. [place] 1. Bipolar disorder, most recent episode, manic, with psychotic features. 2. Polysubstance use disorder including tetrahydrocannabinol, opiates and cocaine. 3. Neurocognitive disorder, not otherwise specified. [place] II Deferred. [place] III Ulnar fracture. History of chronic pain, reflux, and hypertension. [place] IV Chronic mental health issues, limited social support. [place] V Global assessment of functioning 35. Treatments Patient is being provided with a high degree of safety through our unit structure and active adult engagement provided by our mental health professionals, mental health technicians, psychiatric nurses and myself. We are focusing on developing improved coping skills and identifying stressors that may have led to current episode. We will attempt to: * Integrate into therapeutic groups, milieu and individual therapy. * Maintain in a closely monitored and structured unit * Provide low-stimulation environment * Assess degree of lability of affect and impulse control * Complete safety plan * Decrease frequency of relapse and need for re-hospitalization * Establish a consistent sleep pattern * Medication effective in stabilization of mood and/or thought process * Reduce the risk of imminent harm to self and/or others by providing a safe environment * Tolerates medication without side effects * Patient will be on the following psychiatric medications: divalproex sprinkles 500 mg daily and 1000 mg nightly. Risperidone to 1mg po daily and 2mg nightly Education: Educate patient about recreational drug use as an etiology Educate about metabolic etiologies related to obesity Patient's legal status Patient is on a 14 day involuntary treatment hold. Anticipated number of hospital days to achieve above goals: 1 Disposition: Home with support from the pact team Pranav Raza MD May 28, 2017 13:25
--- NOTE | 2017-05-28 14:36 | NUR ---
Nursing Note [id number] Behavior S/O: Pt has good appetite. Out in milieu with peers. Calm, pleasant & cooperative. Conversation tracking clear & organized with normal rate & rhythm. A: No psychotic sx noted. P: Provide supportive environment. Monitor medications & effects.
--- NOTE | 2017-05-28 18:36 | NUR ---
[facility] Day Shift Pt affect and behavior unchanged from previous shift. Pt maintained behavioral control throughout the shift. Pt affect appears mostly flat, but is brighter when engaged with peers. Pt spends most of the shift resting in her room and lightly interacting with peers in the dining room. Pt is appropriate with staff and peers when active on the unit. Pt attended afternoon group activity and participated actively. Pt attended all meals and ate approx 80% of all meals.
[2017-05-28 19:02] VITALS: BP 91/60; PULSE 66; RESP 16
--- NOTE | 2017-05-28 20:19 | NUR ---
Case Management/Counseling: S: "My brother doesn't need to pay my bills for me." O: Patient slept 6 hours last night per staff. Patient denies S/I and H/I. She denies auditory and visual hallucinations. Depression and anxiety were not rated. A: Patient is cooperative, distactible, labile, anxious, suspicious, euthymic, limited insight, limited judgment. P: Follow care plan, coordinate with out-patient providers.
[2017-05-28] MEDS: risperiDONE 2 mg Tablet PO SCH (20:36)
--- NOTE | 2017-05-28 21:16 | NUR ---
NURSING NOTE [id number] Mood: "super" Affect: pleasant, polite, cooperative Behavior: pt. spent time out on the patio, socializing w/peers all shift, wearing her wrist splint, c/o 7.5/10 pain and was given PRN Tramadol 50 mg @ 16:23 and at HS. Later reported it helped a little bit. Thought processes: denies any SI/depression/anxiety. Pt. reports her only issue is "my pain" (referring to her L wrist fracture). Pt. making statements indicating she feels comfortable here on the unit; reporting "me and (other pt.) are lifers here, were here to stay" *smiling*. Showing little insight into her condition but compliant w/treatment.
[2017-05-29] MEDS: LORazepam 0.5 mg Tablet PO PRN (02:35)
--- NOTE | 2017-05-29 05:47 | NUR ---
Nursing Noc Pt presents reality based, pleasant cooperative in good mood and interacting appropriately with staff and other patients. Zero delusions noted this shift. Continuing to monitor Q15 minute safety checks, observing mood, behavior and emotional state. Pt appears to be getting quantity sufficient sleep. CP.
[2017-05-29] MEDS: risperiDONE 1 mg Tablet PO SCH (08:35)
--- NOTE | 2017-05-29 13:11 | PCM.PNPSY ---
Subjective Date of Service May 29, 2017 Subjective I spent 30 minutes both reviewing treatment plan with our clinical team, interviewing the patient and providing supportive/educational psychotherapy. I spent more than 50% of the time counseling the patient. Leesa reports a marked improvement in thought organization and mood stability. Staff reports that she has been active and participating well in one-to-one unit and group activities. She slept 6 hours and denies depression manic or psychotic symptoms review. Staff reports that she has been less pressured and less intrusive on the unit. Her thought process is improving and was more organized today. She denies medication side effects. Mental Status Exam Appearance: Neat/well groomed Attitude: Pleasant, Cooperative Behavior: No unusual behavior Affect: Well Modulated/Appropriate Mood: Euthymic Thought Process/Associations: Logical/Sequential, Goal Directed Speech Production: Normal Speech Rate: Normal Speech Articulation: Normal Thought Content: Appropriate Danger to Self/Suicidal Ideati: None Danger to Others: None Consciousness: Alert Orientation: Person, Place, Date, Situation Memory: Short Term Memory (Impaired) Estimate Intellectual Function: Average Basis for IQ estimate: Word use/vocabulary, Educational history, Employment history Attention/Concentration & Cogn: Impaired (mild) Insight: Limited Judgement: Good Mental Health Plan Leesa appears to be making slow but steady improvement in thought organization and mood stability. [place] 1. Bipolar disorder, most recent episode, manic, with psychotic features. 2. Polysubstance use disorder including tetrahydrocannabinol, opiates and cocaine. 3. Neurocognitive disorder, not otherwise specified. [place] II Deferred. [place] III Ulnar fracture. History of chronic pain, reflux, and hypertension. [place] IV Chronic mental health issues, limited social support. [place] V Global assessment of functioning 40. Treatments Patient is being provided with a high degree of safety through our unit structure and active adult engagement provided by our mental health professionals, mental health technicians, psychiatric nurses and myself. We are focusing on developing improved coping skills and identifying stressors that may have led to current episode. We will attempt to: * Integrate into therapeutic groups, milieu and individual therapy. * Maintain in a closely monitored and structured unit * Provide low-stimulation environment * Assess degree of lability of affect and impulse control * Complete safety plan * Decrease frequency of relapse and need for re-hospitalization * Establish a consistent sleep pattern * Medication effective in stabilization of mood and/or thought process * Reduce the risk of imminent harm to self and/or others by providing a safe environment * Tolerates medication without side effects * Patient will be on the following psychiatric medications: divalproex sprinkles 500 mg daily and 1000 mg nightly. Risperidone to 1mg po daily and 2mg nightly Education: Educate patient about recreational drug use as an etiology Educate about metabolic etiologies related to obesity Patient's legal status Patient is on a 14 day involuntary treatment hold. Anticipated number of hospital days to achieve above goals: 1 Disposition: Home with support from the pact team Pranav Raza MD May 29, 2017 13:11
--- NOTE | 2017-05-29 14:25 | NUR ---
Nursing Note [id number] Behavior S/O: Pt has good appetite. Calm & cooperative with peers & staff. Pt out in milieu with peers. Conversation tracking clear & organized with normal rate & rhythm. A: Pt is slowly improving. P: Provide supportive environment. Monitor medications & effects.
--- NOTE | 2017-05-29 15:37 | NUR ---
Dentist/Counselor S/O: Patient expressed some confusion as to why she was here, and stated that no one has given her a real reason. She denies any SI or HI, no AVH, no anxiety or depression. A: Patient was able to give appropriate date, but was unclear to some things. She stated she knew the date because the 15th is the day she has money transferred from her checking acct to her savings. She was otherwise clear and tracking the conversation. Out on the milieu and interacting with other patients.
[2017-05-29] MEDS: risperiDONE 2 mg Tablet PO SCH (20:39)
--- NOTE | 2017-05-29 21:52 | NUR ---
NURSING NOTE [id number] Mood: great *smiles* Affect: pleasant, friendly, appropriate Behavior: pt. participating well in group activities and visible in milieu all shift, social w/peers, med compliant Thought processes: pt. denies any disturbed thought content, denies any safety issues, reports she is "very happy" to be here: "I'm saving so much money by being here!" Pt. had some difficulty articulating her reasons for being here on the unit other than to save money on food and lacks some insight into her illness, however, reports she is amenable to working with a PACT team upon discharge.
[2017-05-30] MEDS: risperiDONE 1 mg Tablet PO PRN (02:49)
--- NOTE | 2017-05-30 02:50 | NUR ---
PRN Ultram and Risperdal Pt awoke c/o wrist pain 04/24. She received Ultram 50mg for pain and Risperdal 1 mg po for ruminating thoughts and agitation. Will assess medication effect.
--- NOTE | 2017-05-30 06:26 | NUR ---
Sleep Medication effective. Pain level reported as being "less" and she was able to return back to sleep for several more hours. Total sleep 7.5 hours.
[2017-05-30] MEDS: risperiDONE 1 mg Tablet PO SCH (08:14)
[2017-05-30] MEDS: LORazepam 0.5 mg Tablet PO PRN ×2 (11:41→20:52)
[2017-05-30 12:51] VITALS: BP 100/68; PULSE 64; RESP 16
--- NOTE | 2017-05-30 13:05 | PCM.PNPSY ---
Subjective Date of Service May 30, 2017 Subjective I spent 30 minutes both reviewing treatment plan with our clinical team, interviewing the patient and providing supportive/educational psychotherapy. I spent more than 50% of the time counseling the patient. Leesa reports a marked improvement in thought organization and mood stability. Staff reports that she has been active and participating well in one-to-one unit and group activities. She slept 8 hours and denies depression manic or psychotic symptoms review. Staff reports that she has been less pressured and less intrusive on the unit. Her thought process is improving and was more organized today. She denies medication side effects. Mental Status Exam Vital Signs Vital Signs Date Time Temp Pulse Resp B/P Pulse Ox O2 Delivery O2 Flow Rate FiO2 05/30/17 12:51 36.5 64 16 100/68 Appearance: Neat/well groomed Attitude: Pleasant, Cooperative Behavior: No unusual behavior Affect: Well Modulated/Appropriate Mood: Euthymic Thought Process/Associations: Logical/Sequential, Goal Directed Speech Production: Normal Speech Rate: Normal Speech Articulation: Normal Thought Content: Appropriate Danger to Self/Suicidal Ideati: None Danger to Others: None Consciousness: Alert Orientation: Person, Place, Date, Situation Memory: Short Term Memory (Impaired) Estimate Intellectual Function: Average Basis for IQ estimate: Word use/vocabulary, Educational history, Employment history Attention/Concentration & Cogn: Impaired (mild) Insight: Limited Judgement: Good Mental Health Plan Leesa appears to be making slow but steady improvement in thought organization and mood stability. Anticipate dc 06/04/17 [place] 1. Bipolar disorder, most recent episode, manic, with psychotic features. 2. Polysubstance use disorder including tetrahydrocannabinol, opiates and cocaine. 3. Neurocognitive disorder, not otherwise specified. [place] II Deferred. [place] III Ulnar fracture. History of chronic pain, reflux, and hypertension. [place] IV Chronic mental health issues, limited social support. [place] V Global assessment of functioning 40. Treatments Patient is being provided with a high degree of safety through our unit structure and active adult engagement provided by our mental health professionals, mental health technicians, psychiatric nurses and myself. We are focusing on developing improved coping skills and identifying stressors that may have led to current episode. We will attempt to: * Integrate into therapeutic groups, milieu and individual therapy. * Maintain in a closely monitored and structured unit * Provide low-stimulation environment * Assess degree of lability of affect and impulse control * Complete safety plan * Decrease frequency of relapse and need for re-hospitalization * Establish a consistent sleep pattern * Medication effective in stabilization of mood and/or thought process * Reduce the risk of imminent harm to self and/or others by providing a safe environment * Tolerates medication without side effects * Patient will be on the following psychiatric medications: divalproex sprinkles 500 mg daily and 1000 mg nightly. Risperidone to 1mg po daily and 2mg nightly consider change to bi monthly risperdal im Education: Educate patient about recreational drug use as an etiology Educate about metabolic etiologies related to obesity Patient's legal status Patient is on a 14 day MR involuntary treatment hold. Anticipated number of hospital days to achieve above goals: 1 Disposition: Home with support from the pact team Pranav Raza MD May 30, 2017 13:04
--- NOTE | 2017-05-30 14:27 | NUR ---
Nursing Note [id number] Behavior, Mood S/O: Pt has good appetite. Conversation tracking clear & organized with normal rate & rhythm. Pt states, "I don't know how I got in here....They broke my wrist....I want to go home." Pleasant & cooperative with staff & peers. Pt denies depression & anxiety. A: Pt has no insight into illness. P: Provide supportive environment. Monitor medications & effects.
--- NOTE | 2017-05-30 17:41 | NUR ---
Obs Dayshift Pt has good participation, co-operative, calm. Pt is sleeping well, eating well, and good ADL's. Pt engages well w/ peers and staff. Oriented. States that she is hoping to DC soon.
[2017-05-30] MEDS: risperiDONE 2 mg Tablet PO SCH (20:50)
--- NOTE | 2017-05-30 22:07 | NUR ---
NURSING NOTE [id number] Mood: "good" *smiling* Affect: pleasant, polite, cooperative Behavior: visible, social, med compliant Thought processes: denies SI/depression/anxiety. Denies any disturbed thought content, continues to express happiness with being here on the unit and reports she is having "a groovy time" here. PRNs: Tramadol 50 mg + Ativan 0.5 mg @ HS
--- NOTE | 2017-05-31 05:49 | NUR ---
nursing, nights, 11-7 s/o- has appeared to sleep after 2300 during q 15 minute assessments. a- no apparent distress. p- monitor behavior/emotional state, quality, times and amount of sleep, use and effect of medication.
[2017-05-31 08:07] VITALS: BP 104/69; PULSE 62; RESP 18
[2017-05-31] MEDS: risperiDONE 1 mg Tablet PO SCH (08:39)
[2017-05-31] MEDS: LORazepam 0.5 mg Tablet PO PRN ×2 (08:42→20:31)
--- NOTE | 2017-05-31 12:48 | PCM.PNPSY ---
Subjective Date of Service May 31, 2017 Subjective I spent 30 minutes both reviewing treatment plan with our clinical team, interviewing the patient and providing supportive/educational psychotherapy. I spent more than 50% of the time counseling the patient. Leesa reports a marked improvement in thought organization and mood stability. Staff reports that she has been active and participating well in one-to-one unit and group activities. She slept 7 hours and denies depression manic or psychotic symptoms review. Staff reports that she has been less pressured and less intrusive on the unit. Her thought process is improving and was more organized today. She denies medication side effects. Mental Status Exam Vital Signs Vital Signs Date Time Temp Pulse Resp B/P Pulse Ox O2 Delivery O2 Flow Rate FiO2 05/31/17 08:07 36.0 62 18 104/69 Appearance: Neat/well groomed Attitude: Pleasant, Cooperative Behavior: No unusual behavior Affect: Well Modulated/Appropriate Mood: Euthymic Thought Process/Associations: Logical/Sequential, Goal Directed Speech Production: Normal Speech Rate: Normal Speech Articulation: Normal Thought Content: Appropriate Danger to Self/Suicidal Ideati: None Danger to Others: None Consciousness: Alert Orientation: Person, Place, Date, Situation Memory: Short Term Memory (Impaired) Estimate Intellectual Function: Average Basis for IQ estimate: Word use/vocabulary, Educational history, Employment history Attention/Concentration & Cogn: Impaired (mild) Insight: Limited Judgement: Good Mental Health Plan Leesa appears to be making slow but steady improvement in thought organization and mood stability. Anticipate dc 06/04/17 [place] 1. Bipolar disorder, most recent episode, manic, with psychotic features. 2. Polysubstance use disorder including tetrahydrocannabinol, opiates and cocaine. 3. Neurocognitive disorder, not otherwise specified. [place] II Deferred. [place] III Ulnar fracture. History of chronic pain, reflux, and hypertension. [place] IV Chronic mental health issues, limited social support. [place] V Global assessment of functioning 40. Treatments Patient is being provided with a high degree of safety through our unit structure and active adult engagement provided by our mental health professionals, mental health technicians, psychiatric nurses and myself. We are focusing on developing improved coping skills and identifying stressors that may have led to current episode. We will attempt to: * Integrate into therapeutic groups, milieu and individual therapy. * Maintain in a closely monitored and structured unit * Provide low-stimulation environment * Assess degree of lability of affect and impulse control * Complete safety plan * Decrease frequency of relapse and need for re-hospitalization * Establish a consistent sleep pattern * Medication effective in stabilization of mood and/or thought process * Reduce the risk of imminent harm to self and/or others by providing a safe environment * Tolerates medication without side effects * Patient will be on the following psychiatric medications: divalproex sprinkles 500 mg daily and 1000 mg nightly. Risperidone to 1mg po daily and 2mg nightly consider change to bi monthly risperdal im Education: Educate patient about recreational drug use as an etiology Educate about metabolic etiologies related to obesity Patient's legal status Patient is on a 14 day MR involuntary treatment hold. Anticipated number of hospital days to achieve above goals: 1 Disposition: Home with support from the pact team Pranav Raza MD May 31, 2017 12:48
--- NOTE | 2017-05-31 15:19 | NUR ---
Nursing days Pt presents as bright, cooperative and pleasant. Denies SI/AVH/HI. Took scheduled medication. C/O left wrist pain rated rated 6/10 and received Motrin and Ultram po prn @ 0840 with good effect. She reported pain decreased to 2/10. She received Ativan 0.5mg po prn for mild anxiety @ 0842 which was also effective. Pt took a morning nap and then attended morning group.
--- NOTE | 2017-05-31 15:46 | NUR ---
Ski Lift Operator/Counselor S:"I'm good." O:Patient denies any SI or HI, no AVH, no anxiety or depression. A:Patient was napping, but stated she was doing well. She has been out in the milieu and appropriately interacting with other patients and staff. P:Follow care plan and coordinate with outpatient providers.
--- NOTE | 2017-05-31 17:04 | NUR ---
Obs Dayshift Pt stated that she was tired today, spent most of the day shift in bed resting. Pt stated that she was in a good mood, but not wanting to be up and about. Pt is participating in groups and back to bed. Pt is polite and engaging w/ peers and staff. Goals were to DC by the end of the week, and talk w/ her brother and get a few naps in. Good ADL's, Good meals
[2017-05-31] MEDS: risperiDONE 2 mg Tablet PO SCH (20:31)
--- NOTE | 2017-06-01 05:09 | NUR ---
Nursing Note Electrical Instrument Technician 11pm to 7am Pt asleep at start of shift and remained asleep for the duration of the shift. Monitored pt. with q 15 minute face checks for safety, location and accountability
[2017-06-01 08:15] VITALS: BP 111/77; PULSE 64; RESP 18
[2017-06-01] MEDS: risperiDONE 1 mg Tablet PO SCH (09:28)
--- NOTE | 2017-06-01 13:25 | NUR ---
Nursing Days Pt seen by [facility] for a home care assessment but refused the assessment. Pt told this staff " I can do my own home care. I don't need it. I take care of myself." She denies anxiety, depression and SI. She states her left wrist pain is better and pain is rated 6/10 with activity. She also states "I have a bone to pick. I disagree with their assessment. They said I had cocaine in my system when I came in. I haven't used cocaine in over 20 years". Took scheduled medications. Participated in community meeting and napping after lunch.
--- NOTE | 2017-06-01 14:01 | PCM.PNPSY ---
Subjective Date of Service Jun 01, 2017 Subjective I spent 30 minutes both reviewing treatment plan with our clinical team, interviewing the patient and providing supportive/educational psychotherapy. I spent more than 50% of the time counseling the patient. Leesa reports a marked improvement in thought organization and mood stability. Staff reports that she has been active and participating well in one-to-one unit and group activities. She slept 9 hours and denies depression manic or psychotic symptoms review. Staff reports that she has been less pressured and less intrusive on the unit. Her thought process is improving and was more organized today. She continues to struggle with issues of insight and judgment. She tends to over estimate her abilities. She denies medication side effects. Mental Status Exam Vital Signs Vital Signs Date Time Temp Pulse Resp B/P Pulse Ox O2 Delivery O2 Flow Rate FiO2 06/01/17 08:15 36.3 64 18 111/77 Appearance: Neat/well groomed Attitude: Pleasant, Cooperative Behavior: No unusual behavior Affect: Well Modulated/Appropriate Mood: Euthymic Thought Process/Associations: Logical/Sequential, Goal Directed Speech Production: Normal Speech Rate: Normal Speech Articulation: Normal Thought Content: Appropriate Danger to Self/Suicidal Ideati: None Danger to Others: None Consciousness: Alert Orientation: Person, Place, Date, Situation Memory: Short Term Memory (Impaired) Estimate Intellectual Function: Average Basis for IQ estimate: Word use/vocabulary, Educational history, Employment history Attention/Concentration & Cogn: Impaired (mild) Insight: Limited Judgement: Good Mental Health Plan Leesa appears to be making slow but steady improvement in thought organization and mood stability. Anticipate dc 06/04/17 [place] 1. Bipolar disorder, most recent episode, manic, with psychotic features. 2. Polysubstance use disorder including tetrahydrocannabinol, opiates and cocaine. 3. Neurocognitive disorder, not otherwise specified. [place] II Deferred. [place] III Ulnar fracture. History of chronic pain, reflux, and hypertension. [place] IV Chronic mental health issues, limited social support. [place] V Global assessment of functioning 45. Treatments Patient is being provided with a high degree of safety through our unit structure and active adult engagement provided by our mental health professionals, mental health technicians, psychiatric nurses and myself. We are focusing on developing improved coping skills and identifying stressors that may have led to current episode. We will attempt to: * Integrate into therapeutic groups, milieu and individual therapy. * Maintain in a closely monitored and structured unit * Provide low-stimulation environment * Assess degree of lability of affect and impulse control * Complete safety plan * Decrease frequency of relapse and need for re-hospitalization * Establish a consistent sleep pattern * Medication effective in stabilization of mood and/or thought process * Reduce the risk of imminent harm to self and/or others by providing a safe environment * Tolerates medication without side effects * Patient will be on the following psychiatric medications: divalproex sprinkles 500 mg daily and 1000 mg nightly. Risperidone to 1mg po daily and 2mg nightly consider change to bi monthly risperdal im Education: Educate patient about recreational drug use as an etiology Educate about metabolic etiologies related to obesity Patient's legal status Patient is on a 14 day MR involuntary treatment hold. Anticipated number of hospital days to achieve above goals: 3 Disposition: Home with support from the pact team Pranav Raza MD Jun 01, 2017 14:01
--- NOTE | 2017-06-01 16:12 | NUR ---
Traffic Rate Analyst/Counselor S: I don't need anyone to look after me." O: Patient denies any SI or HI, no AVH, no anxiety or depression. Patient slept for 8.5hrs. A: Patient refused to participate in the Home and Communities assessment with Snow Cai from [facility], stating she did not need an in home tennis ball coverer hand and that she was able to care for herself just fine. Patient has been out on the unit, interacting with other patients. She has been cooperative and continues to wear her wrist brace. P: Follow care plan and coordinate with outpatient providers.
--- NOTE | 2017-06-01 17:14 | NUR ---
Obs Dayshift Pt is participating well on the unit in group activities, out on the patio, and with peers and staff. Calm, appropriate, and polite. Pt is looking forward to DC this week. Good ADL's, Good meals
--- NOTE | 2017-06-01 18:43 | NUR ---
NURSING NOTE [id number] Mood: "well-rested" Affect: pleasant, appropriate, cooperative Behavior: visible, social w/peers, suntanned out on the patio, took a shower, c/o 8/10 L wrist pain and received Tramadol 50 mg and Ibuprofen 600 mg PRN. Thought processes: pt. reports she is looking forward to discharge. She continues to have limited insight into her condition and reasons for being here. Referencing her stay here she said: "I'm on vacation! Free food, I saved $700 being here, it's all good" *smiles*
[2017-06-01] MEDS: Magnesium Hydroxide 10 mL Oral Concentration PO PRN (18:57)
[2017-06-01] MEDS: LORazepam 0.5 mg Tablet PO PRN (20:18)
[2017-06-01] MEDS: risperiDONE 2 mg Tablet PO SCH (20:18)
[2017-06-02] MEDS: LORazepam 0.5 mg Tablet PO PRN ×2 (05:17→20:33)
[2017-06-02] MEDS: risperiDONE 1 mg Tablet PO SCH (08:53)
[2017-06-02 09:14] VITALS: BP 116/74; PULSE 64; RESP 16
--- NOTE | 2017-06-02 14:03 | NUR ---
Nursing Note [id number] Behavior S/O: Pt has good appetite. Conversation tracking clear & organized with normal rate & rhythm. Pleasant & cooperative on unit. Pt interacting with peers & staff appropriately. Pt denies problems. A: No psychotic sx noted. P: Provide supportive environment. Monitor medications & effects.
--- NOTE | 2017-06-02 14:25 | PCM.PNPSY ---
Subjective Date of Service Jun 02, 2017 Subjective I spent 30 minutes both reviewing treatment plan with our clinical team, interviewing the patient and providing supportive/educational psychotherapy. I spent more than 50% of the time counseling the patient. Leesa reports a marked improvement in thought organization and mood stability. Staff reports that she has been active and participating well in one-to-one unit and group activities. She slept 9 hours and denies depression manic or psychotic symptoms review. Staff reports that she has been less pressured and less intrusive on the unit. Her thought process is improving and was more organized today. She continues to struggle with issues of insight and judgment. She tends to over estimate her abilities. She denies medication side effects. Mental Status Exam Vital Signs Vital Signs Date Time Temp Pulse Resp B/P Pulse Ox O2 Delivery O2 Flow Rate FiO2 06/02/17 09:14 36.0 64 16 116/74 Appearance: Neat/well groomed Attitude: Pleasant, Cooperative Behavior: No unusual behavior Affect: Well Modulated/Appropriate Mood: Euthymic Thought Process/Associations: Logical/Sequential, Goal Directed Speech Production: Normal Speech Rate: Normal Speech Articulation: Normal Thought Content: Appropriate Danger to Self/Suicidal Ideati: None Danger to Others: None Consciousness: Alert Orientation: Person, Place, Date, Situation Memory: Short Term Memory (Impaired) Estimate Intellectual Function: Average Basis for IQ estimate: Word use/vocabulary, Educational history, Employment history Attention/Concentration & Cogn: Impaired (mild) Insight: Limited Judgement: Good Mental Health Plan Leesa appears to be making slow but steady improvement in thought organization and mood stability. Anticipate dc 06/04/17 [place] 1. Bipolar disorder, most recent episode, manic, with psychotic features. 2. Polysubstance use disorder including tetrahydrocannabinol, opiates and cocaine. 3. Neurocognitive disorder, not otherwise specified. [place] II Deferred. [place] III Ulnar fracture. History of chronic pain, reflux, and hypertension. [place] IV Chronic mental health issues, limited social support. [place] V Global assessment of functioning 45. Treatments Patient is being provided with a high degree of safety through our unit structure and active adult engagement provided by our mental health professionals, mental health technicians, psychiatric nurses and myself. We are focusing on developing improved coping skills and identifying stressors that may have led to current episode. We will attempt to: * Integrate into therapeutic groups, milieu and individual therapy. * Maintain in a closely monitored and structured unit * Provide low-stimulation environment * Assess degree of lability of affect and impulse control * Complete safety plan * Decrease frequency of relapse and need for re-hospitalization * Establish a consistent sleep pattern * Medication effective in stabilization of mood and/or thought process * Reduce the risk of imminent harm to self and/or others by providing a safe environment * Tolerates medication without side effects * Patient will be on the following psychiatric medications: divalproex sprinkles 500 mg daily and 1000 mg nightly. Risperidone to 1mg po daily and 2mg nightly Consider change to bi monthly risperdal im Education: Educate patient about recreational drug use as an etiology Educate about metabolic etiologies related to obesity Patient's legal status Patient is on a 14 day MR involuntary treatment hold. Anticipated number of hospital days to achieve above goals: 2 Disposition: Home with support from the pact team Pranav Raza MD Jun 02, 2017 14:25
--- NOTE | 2017-06-02 16:51 | NUR ---
Obs Dayshift Pt is up today, out in the milieu, participating, and appropriate. Pt states that she is thankful for staff support and looking forward to getting back home this week. Pt is engaging well w/ peers and staff, positive and outgoing. Good ADL's, Good meals
--- NOTE | 2017-06-02 18:41 | NUR ---
Case Management/Counseling: S: "I'm ready to discharge Wednesday." O: Patient slept 8.25 hours last night per staff. Patient denies S/I and H/I. She denies auditory and visual hallucinations. Depression is 0/10 and anxiety is 0/10. A: Patient is cooperative, euthymic, limited insight. P: Follow care plan, coordinate with out-patient providers.
[2017-06-02] MEDS: risperiDONE 2 mg Tablet PO SCH (20:31)
--- NOTE | 2017-06-02 21:27 | NUR ---
NURSING NOTE [id number] Mood: "relaxed" Affect: calm, pleasant, cooperative Behavior: pt. continues to be friendly w/peers and staff, social in milieu, attending all group activities, participating in rec group, med compliant. Her friend Jairo visited this evening. Thought processes: denies all issues: no AH/VH/SI/HI/depression/anxiety. Stated: "everything is easy breezy". Still shows lack of insight into condition and reasons for being here. Did, however, ask this report writer this evening if she will still be followed by [facility] when she discharges and expressed that she very much wishes that this is so. Encouraged pt. to address this w/her CM and doctor tomorrow. PRNs Tramadol 50 mg and Ativan 0.5 mg @ HS
--- NOTE | 2017-06-02 23:44 | NUR ---
Observations 1900 to 0700 Pt ate a snack. Pt spent her free time with a visitor, using the phone and being social with peers. Pt maintained behavioral control and showed no signs of abnormal behavior. Pt appeared asleep at 2130 and has remained asleep. Pt respirations were observed when asleep. Staff completed 15 min close observations as ordered.
[2017-06-03] MEDS: LORazepam 0.5 mg Tablet PO PRN (03:06)
--- NOTE | 2017-06-03 04:47 | NUR ---
nursing, nights, 11-7 s- can i have something for my wrist. thank you. o- has appeared to sleep after [id number], received 50 mg of ultram. asleep after 329. assessed q 15 minutes. a- interrupted sleep, medication helpful, no apparent distress. p- monitor behavior/emotional state, quality, times and amount of sleep, use and effect of medication. david
[2017-06-03] MEDS: risperiDONE 1 mg Tablet PO SCH (08:20)
--- NOTE | 2017-06-03 11:02 | NUR ---
Nursing Note [id number] Behavior S/O: Pt has good appetite. Conversation tracking clear & organized with normal rate & rhythm. Pleasant & cooperative on unit. Pt interacting with peers & staff appropriately. Pt denies problems. A: No psychotic sx noted. P: Provide supportive environment. Monitor medications & effects.
[2017-06-03 14:40] VITALS: BP 105/67; PULSE 57; RESP 14
--- NOTE | 2017-06-03 15:41 | PCM.PNPSY ---
Subjective Date of Service Jun 03, 2017 Subjective I spent 30 minutes both reviewing treatment plan with our clinical team, interviewing the patient and providing supportive/educational psychotherapy. I spent more than 50% of the time counseling the patient. Leesa reports a marked improvement in thought organization and mood stability. Staff reports that she has been active and participating well in one-to-one unit and group activities. She slept 7 hours and denies depression manic or psychotic symptoms review. Staff reports that she has been less pressured and less intrusive on the unit. Her thought process is improving and was more organized today. She continues to struggle with issues of insight and judgment. She tends to over estimate her abilities. She denies medication side effects. Mental Status Exam Vital Signs Vital Signs Date Time Temp Pulse Resp B/P Pulse Ox O2 Delivery O2 Flow Rate FiO2 06/03/17 14:40 36.0 57 14 105/67 Appearance: Neat/well groomed Attitude: Pleasant, Cooperative Behavior: No unusual behavior Affect: Well Modulated/Appropriate Mood: Euthymic Thought Process/Associations: Logical/Sequential, Goal Directed Speech Production: Normal Speech Rate: Normal Speech Articulation: Normal Thought Content: Appropriate Danger to Self/Suicidal Ideati: None Danger to Others: None Consciousness: Alert Orientation: Person, Place, Date, Situation Memory: Short Term Memory (Impaired) Estimate Intellectual Function: Average Basis for IQ estimate: Word use/vocabulary, Educational history, Employment history Attention/Concentration & Cogn: Impaired (mild) Insight: Limited Judgement: Good Mental Health Plan Leesa appears to be making slow but steady improvement in thought organization and mood stability. Anticipate dc 06/04/17 [place] I 1. Bipolar disorder, most recent episode, manic, with psychotic features. 2. Polysubstance use disorder including tetrahydrocannabinol, opiates and cocaine. 3. Neurocognitive disorder, not otherwise specified. [place] II Deferred. [place] III Ulnar fracture. History of chronic pain, reflux, and hypertension. [place] IV Chronic mental health issues, limited social support. [place] V Global assessment of functioning 45. Treatments Patient is being provided with a high degree of safety through our unit structure and active adult engagement provided by our mental health professionals, mental health technicians, psychiatric nurses and myself. We are focusing on developing improved coping skills and identifying stressors that may have led to current episode. We will attempt to: * Integrate into therapeutic groups, milieu and individual therapy. * Maintain in a closely monitored and structured unit * Provide low-stimulation environment * Assess degree of lability of affect and impulse control * Complete safety plan * Decrease frequency of relapse and need for re-hospitalization * Establish a consistent sleep pattern * Medication effective in stabilization of mood and/or thought process * Reduce the risk of imminent harm to self and/or others by providing a safe environment * Tolerates medication without side effects * Patient will be on the following psychiatric medications: divalproex sprinkles 500 mg daily and 1000 mg nightly. Risperidone to 1mg po daily and 2mg nightly Consider change to bi monthly risperdal im Education: Educate patient about recreational drug use as an etiology Educate about metabolic etiologies related to obesity Patient's legal status Patient is on a 14 day MR involuntary treatment hold. Anticipated number of hospital days to achieve above goals: Anticipate discharge in the morning. Disposition: Home with support from the pact team Pranav Raza MD Jun 03, 2017 15:40
--- NOTE | 2017-06-03 17:25 | NUR ---
[facility] Day Shift Pt affect and behavior unchanged from previous shift. Pt maintained behavioral control throughout the shift. Pt affect appears euthymic. Pt spends most of the shift resting in her room, engaging in unit activities, and lightly interacting with peers in the dining room. Pt is appropriate with staff and peers when active on the unit. Pt attended community meeting and afternoon group activities. Pt attended all meals and ate approx 80% of all meals.
[2017-06-03] MEDS: risperiDONE 2 mg Tablet PO SCH (20:37)
--- NOTE | 2017-06-03 23:05 | NUR ---
NURS NOTE EVENING Mood: :"I'm great." Endorses anxiety 02/22. Denies depression. Affect: Well-modulated. Behavior: Appropriate and pleasant. Thought Content/Process: Clear, logical, linear. Denies DORENE LOPES. Denies ZION LANGLEY. PRN/NURS Notes: Took PRN tramadol and zolpidem at HS.
--- NOTE | 2017-06-03 23:11 | NUR ---
Observations 1900 to 0700 Pt attended and participated in wrap up group. Pt ate a snack. Pt had a visitor. Pts affect is bright and cheerful. Pt is pleasant and cooperative. Pt maintained behavioral control and showed no signs of abnormal behavior. Pt appeared asleep at 2130 and has remained asleep. Pt respirations were observed when asleep. Staff completed 15 min close observations as ordered.
--- NOTE | 2017-06-04 02:43 | NUR ---
Nursing Noc Pt pleasant and cooperative in unit, out in common area through evening and participating in snacks and group. Continuing to monitor mood behavior and emotional state. CP. Q15 minute safety checks throughout the night.
[2017-06-04] MEDS: risperiDONE 1 mg Tablet PO PRN (02:55)
[2017-06-04] MEDS: risperiDONE 1 mg Tablet PO SCH (08:35)
[2017-06-04] MEDS ORDERED: RISP1TAB90 PO (12:31)
[2017-06-04] MEDS ORDERED: DEP250A PO ×2 (12:31)
[2017-06-04] MEDS ORDERED: RISP2TAB21 PO (12:31)
[2017-06-04] MEDS ORDERED: ROB500 PO (12:31)
--- NOTE | 2017-06-04 12:33 | PCM.DIMED ---
Discharge Instructions Date of Service Jun 04, 2017 Dates of Hospitalization May 12, 2017 at 22:25 Discharge Diagnosis Discharge Diagnosis [place] I 1. Bipolar disorder, most recent episode, manic, with psychotic features. 2. Polysubstance use disorder including tetrahydrocannabinol, opiates and cocaine. 3. Neurocognitive disorder, not otherwise specified. [place] II Deferred. [place] III Ulnar fracture. History of chronic pain, reflux, and hypertension. [place] IV Chronic mental health issues, limited social support. [place] V Global assessment of functioning 45. Diet Discharge Diet: No restrictions Activity Discharge Activity: No restrictions Call your provider Call your provider for: Fever or Chills Patient Instructions Patient Instructions I Strongly encouraged patient to follow up with outpatient care: 1-Recommended patient takes medication as prescribed and not alter this unless under the direct care of a provider. 2-Recommend client refrain from recreational drugs and alcohol while taking psychiatric medications. 3-Recommend client start a 12 step program to deal with issues of addiction. 4-Recommend patient attempt to find a therapist or group to deal with impulse control and interpersonal relationship conflicts Follow-up plan Client to follow up with [facility] in [place]. She is an established patient. Follow-up with PCP in: 2 weeks Pranav Raza MD Jun 04, 2017 12:33
--- NOTE | 2017-06-04 12:57 | NUR ---
Nursing Note Discharge Patient cooperative with discharge process. Acknowledges understanding of d/c instructions and has a copy with them upon leaving unit at 1255. Belongings accounted for and with patient. Prescriptions faxed to patients pharmacy [facility] in [place]. Patient denies harmful thoughts and hallucinations at this time.
--- NOTE | 2017-06-04 13:52 | DIS ---
[address] [address] DISCHARGE SUMMARY PATIENT: ERIKA PONCE : 1950 MR#: [id number] ADMIT: 05/12/2017 JOB ID: [id number] DIS: DATE OF ADMISSION: 05/12/2017 DATE OF DISCHARGE: 06/04/2017 IDENTIFICATION: The patient is 66-year-old, white female, with a diagnosis of bipolar disorder, most recent episode manic with psychotic features, substance abuse use disorder and neuro cognitive disorder unspecified, who had been noncompliant with her less restrictive order and was brought in on a petition for a caodaism of mental status and to enforce the order. CHIEF COMPLAINT: "With cookies in the front of the door, people stared at me. All these people see me and smile." SUMMARY OF PRESENT ILLNESS: The patient is a 66-year-old, white female, who has a history of prior independent living in an apartment who was initially detained in March and discharged on April on a 90 day less restrictive order. She has been medication noncompliant and has had increasing confusion and paranoia per report. This episode appears to be very similar to previous admissions with disorganized thought process, mood lability and irritability. The client was admitted for stabilization and treatment. HOSPITAL COURSE: Client was admitted to our unit and was provided with a high degree of safety through the structure and active adult engagement she received here. We had her participate in one-to-one unit and group activities, focused on improving coping skills, reality based thinking and coming up with a treatment plan that she could follow up as an outpatient. She participated well in all the above activities. She was initially quite confused but showed gradual and steady progress over the time she spent here. At the time of discharge, she had been stabilized on a combination of the unit structure and Depakote 500 q.a.m. 1000 at night and Risperdal 1 mg in the morning and 2 mg at night. For the past three days, she has had essentially no symptoms. I talked with her at length about refraining from recreational drugs and alcohol while taking psychiatric medications. She will be discharged to home today. MENTAL STATUS EXAMINATION: Client neatly and stylishly dressed. Good eye contact. Calm, pleasant, cooperative. Mood euthymic. Affect congruent. Normal intensity. Thought process: Client is able to relate a coherent recent history. She is unable to describe what happened prior to admission. Does not appear to be responding to internal stimuli. Thought content, denies manic depressive or psychotic themes is future planning on how to take care of herself. Alert and oriented to person, place and date. Immediate, short and long-term memory intact. Concentration and attention relatively normal. Insight and judgment fair. Impulse control highly contained. Reality testing intact. Competence to handle current stressors has returned to baseline. DISCHARGE DIAGNOSIS: [place] I: 1. Bipolar mood disorder, most recent episode manic with psychotic features. 2. Polysubstance abuse including opiates and cocaine. 3. Neural cognitive disorder, not otherwise specified. [place] II: Deferred. AX[place] III: Ulnar fracture, history of chronic pain, reflux, hypertension. [place] IV: Chronic mental illness, limited social support. AXIS V: Current Global Assessment of Functioning equal to 45. DISCHARGE MEDICATIONS: 1. Depakote 500 daily 1000 h.s. 2. Risperdal 1 daily 2 mg h.s. ACTIVITY AND DIET: Recommend client refrain from recreational drugs and alcohol while taking psychiatric medications. DISCHARGE PLAN: Client is enrolled in [facility] and will have an appointment scheduled with her within the next two weeks per director of caseworkAdilia CONDITION ON DISCHARGE: Good. PROGNOSIS: Guarded. Client is not acknowledging her substance abuse issues and how this affects her cognitive functioning. Until this happens, I would anticipate multiple frequent admissions.
--- NOTE | 2017-06-04 15:37 | NUR ---
Case Management/Counseling: S: "I'm going to lunch with my brother when I discharge." O: Patient slept 8.00 hours last night per staff. Patient denies S/I and H/I. She denies auditory and visual hallucinations. Depression is 0/10 and anxiety is 0/10. Out-patient appointments: MARIELA Joseph, [facility] medication monitor, 06/07/17 at 12:50pm; Adriana [facility] counselor, 06/07/17 at 3:50pm; Dr. Kenisha Rubio, Primary Care Physician [facility],n006/15/17 at 10:30am. A: Patient is cooperative, hopeful, fair insight, fair judgment. P: Follow care plan, coordinate with out-patient providers.
[2017-06-04 15:38] VITALS: BP 94/69; PULSE 64; RESP 16
== END 2017-06-04 12:55 | disposition home or self-care (01) | DRG 885 ==
LOC: SED 13:43 → MHC 22:25
PROVIDERS: ADMIT Psychiatry & Neurology Psychiatry; ATTEND Psychiatry & Neurology Psychiatry
DX: F31.2 Bipolar disorder, current episode manic severe with psychotic features (principal); S52.602A Unspecified fracture of lower end of left ulna, initial encounter for closed fracture; F14.10 Cocaine abuse, uncomplicated; F11.10 Opioid abuse, uncomplicated; I10 Essential (primary) hypertension; G89.29 Other chronic pain; Z91.14 Patient's other noncompliance with medication regimen; K21.9 Gastro-esophageal reflux disease without esophagitis; F17.210 Nicotine dependence, cigarettes, uncomplicated; W18.30XA Fall on same level, unspecified, initial encounter; Y92.239 Unspecified place in hospital as the place of occurrence of the external cause